=== PATIENT | male | born 1945 | race American Indian/Alaskan Native ===

== ENCOUNTER 2017-07-08 11:19 | Inpatient (IN) | payer MEDICARE ==
[2017-07-08 11:45] VITALS: BMI 32.6
[2017-07-08] MEDS ORDERED: Sodium Chloride 0.9% 1,000 ML IV ONE (12:26)
[2017-07-08 13:15] LABS: BASO % 0.1 % (0.0-2.0); LYMPH # 0.6 K/uL (1.0-4.3); LYMPH % 7.9 % (20.0-40.0); MEAN CORPUSCULAR HEMOGLOBIN 26.7 pg (27.0-31.0); MEAN CORPUSCULAR HGB CONC 32.8 g/dL (33.0-37.0); MEAN PLATELET VOLUME 9.3 fL (7.2-11.7); MONO # 0.6 K/uL (0.0-0.8); MONO % 7.6 % (0.0-10.0); NEUT # 6.6 K/uL (1.8-7.0); NEUT % 84.4 % (50.0-75.0); NRBC % 0.2 % (0.0-2.0); RBC 5.45 Mil/uL (4.40-5.90); RED CELL DISTRIBUTION WIDTH 17.5 % (11.5-14.5); WHITE BLOOD COUNT 7.8 K/uL (4.8-10.8)
[2017-07-08] MEDS ORDERED: Sodium Chloride 0.9% 1,000 ML ONE (13:15)
[2017-07-08 13:17] LABS: HEMOGLOBIN 14.5 g/dL (12.0-18.0); MEAN CELL VOLUME 81.3 fL (80.0-94.0); PLATELET COUNT 163 K/uL (130-400)
[2017-07-08 13:25] LABS: ALB/GLOB RATIO 1.1 (1.0-2.1); ALBUMIN 3.6 g/dL (3.5-5.0)
[2017-07-08] MEDS ORDERED: Iohexol 240 (50 ml) PO STA (13:45)
[2017-07-08 13:51] LABS: BANDS 48 % (0-2); LYMPHOCYTE 15 % (20-40); MONOCYTE 5 % (0-10); NEUTROPHIL 32 % (50-75); NUCLEATED RED BLOOD CELL 1 % (0-0); PLATELET ESTIMATE NORMAL (NORMAL); TOTAL CELLS COUNTED 100
[2017-07-08 13:52] LABS: BURR CELLS SLIGHT; OVALOCYTES SLIGHT; POIKILOCYTOSIS SLIGHT
[2017-07-08 14:54] LABS: SQUAMOUS EPITHIAL 1 /hpf (0-5); URINE BILIRUBIN NEGATIVE (NEGATIVE); URINE BLOOD NEGATIVE (NEGATIVE); URINE CLARITY Hazy (Clear); URINE COLOR Amber (YELLOW); URINE GLUCOSE (UA) NORMAL (Normal); URINE LEUKOCYTE ESTERASE NEG Leu/uL (Negative); URINE NITRATE NEGATIVE (NEGATIVE); URINE PROTEIN 1+ mg/dL (NEGATIVE)
[2017-07-08] MEDS ORDERED: Iohexol 240 (50 ml) ONE (15:00)
--- NOTE | 2017-07-08 17:08 | CT ---
PROCEDURE: CT Abdomen and Pelvis without IV contrast. HISTORY: abd pain, vomiting. Renal insufficiency COMPARISON: None available. TECHNIQUE: Contiguous axial images of the abdomen and pelvis. Oral contrast was administered. No IV contrast given. Coronal and Sagittal reformats generated and reviewed. Radiation dose: Total exam DLP = 1518.62 mGy-cm. This CT exam was performed using one or more of the following dose reduction techniques: Automated exposure control, adjustment of the mA and/or kV according to patient size, and/or use of iterative reconstruction technique. FINDINGS: There is limited evaluation of the solid organs without the administration of IV contrast. LOWER THORAX: Bibasilar atelectasis/ infiltrates. No visible pleural effusion or pneumothorax. Small hiatal hernia with evidence of gastroesophageal reflux. LIVER: Nodular hepatic contour. Small perihepatic ascites. GALLBLADDER AND BILE DUCTS: Distended gallbladder. No calcified gallstones evident. PANCREAS: Atrophic pancreas. SPLEEN: Unremarkable unenhanced appearance. Small perisplenic ascites. ADRENALS: Mildly nodular adrenal gland hypertrophy. KIDNEYS AND URETERS: Bilateral lobulated renal contours. Renal atrophy. Numerous bilateral low-density renal lesions several of which appear consistent with cysts. Indeterminate 13 x 7 mm hyperdense focus within the left mid to upper pole lateral kidney. Nonobstructing 6 mm left lower pole calculus. No hydronephrosis or obstructing renal calculus. BLADDER: The urinary bladder appears unremarkable. REPRODUCTIVE: Prostate gland measures approximately 3.4 x 4.2 cm and contains coarse calcifications. Partially imaged large left and small right hydroceles. APPENDIX: The appendix appears within normal limits of caliber. BOWEL: The stomach is nondistended. The bowel loops appear within normal limits of caliber without evidence of intestinal obstruction. Small bowel wall thickening suspicious for enteritis, correlate clinically. Diverticulosis without CT evidence of acute diverticulitis. PERITONEUM: Small (approximately 3.0 x 4.0 cm) pelvic free fluid including bilateral pericolic gutters and cul-de-sac. No definite free air. LYMPH NODES: Numerous numerous prominent nonspecific pericecal/mesenteric lymph nodes. VASCULATURE: No aortic aneurysm. BONES: Osseous demineralization. Degenerative changes. Sclerotic irregular appearance of the sacrum. Suggest further evaluation with nuclear medicine bone scan.Partially ankylosed SI joints. OTHER FINDINGS: Small focal fluid collection inferior and adjacent to the cecum, nonspecific ; rule out abscess or loculated ascites. 2.5 cm irregular soft tissue/mass evident within the right abdomen (series 3, image 100) medial to the right colon with evidence of calcification. IMPRESSION: Small (approximately 3.0 x 4.0 cm) focal fluid collection inferior and adjacent to the cecum, nonspecific ; rule out abscess or loculated ascites. 2.5 cm irregular soft tissue/mass evident within the right abdomen medial to the right colon with evidence of calcification. Malignant neoplasm must be excluded. Numerous prominent nonspecific mesenteric/pericecal lymph nodes. Nodular hepatic contour. Correlate clinically for possibility of cirrhosis. Small perihepatic ascites. Small perisplenic ascites. Small fluid within bilateral pericolic gutters and cul-de-sac. Bilateral lobulated renal contours. Renal atrophy. Numerous bilateral low-density renal lesions several of which appear consistent with cysts. Indeterminate 13 x 7 mm hyperdense focus within the left mid to upper pole lateral kidney. Nonobstructing 6 mm left lower pole calculus. Distended gallbladder. No calcified gallstones evident. Correlate clinically. Suggest further evaluation with right upper quadrant ultrasound if indicated. Small bowel wall thickening suspicious for enteritis. Correlate clinically. Diverticulosis without CT evidence of acute diverticulitis. Sclerotic irregular appearance of the sacrum. Suggest further evaluation with nuclear medicine bone scan if indicated. Additional findings as above.
--- NOTE | 2017-07-08 17:36 | C.PDOC ---
Time Seen by Provider: 07/08/17 12:11 Chief Complaint (Nursing): Abdominal Pain Past Medical History Vital Signs: Last Vital Signs Temp 99.0 F 07/08/17 15:21 Pulse 82 07/08/17 15:21 Resp 18 07/08/17 15:21 BP 132/65 07/08/17 15:21 Pulse Ox 98 07/08/17 15:21 - Medical History PMH: Arthritis, HTN Family History: States: Unknown Family Hx - Social History Hx Alcohol Use: No Hx Substance Use: No - Immunization History Hx Tetanus Toxoid Vaccination: No Hx Influenza Vaccination: Yes Hx Pneumococcal Vaccination: Yes ED Course And Treatment - Laboratory Results Result Diagrams: 07/08/17 13:10 07/08/17 13:10 O2 Sat by Pulse Oximetry: 98 Disposition - Disposition
--- NOTE | 2017-07-08 17:37 | C.PDOC ---
Time Seen by Provider: 07/08/17 12:11 Chief Complaint (Nursing): Abdominal Pain History Per: Patient, Family Onset/Duration Of Symptoms: Days (1) Current Symptoms Are (Timing): Still Present Severity: Moderate Location Of Pain/Discomfort: Diffuse Quality Of Discomfort: Unable To Describe, "Pain" Associated Symptoms: Nausea, Vomiting Exacerbating Factors: Food Alleviating Factors: None Additional History Per: Prior Records Past Medical History Reviewed: Historical Data, Nursing Documentation, Vital Signs Vital Signs: Last Vital Signs Temp 99.0 F 07/08/17 15:21 Pulse 82 07/08/17 15:21 Resp 18 07/08/17 15:21 BP 132/65 07/08/17 15:21 Pulse Ox 98 07/08/17 15:21 - Medical History PMH: Arthritis (Gout), HTN, Chronic Kidney Disease Surgical History: No Surg Hx Family History: States: Unknown Family Hx - Social History Hx Alcohol Use: No Hx Substance Use: No - Immunization History Hx Tetanus Toxoid Vaccination: No Hx Influenza Vaccination: Yes Hx Pneumococcal Vaccination: Yes Review Of Systems Except As Marked, All Systems Reviewed And Found Negative. Constitutional: Negative for: Fever Cardiovascular: Negative for: Chest Pain Respiratory: Negative for: Cough, Shortness of Breath Gastrointestinal: Positive for: Nausea, Vomiting, Abdominal Pain. Negative for : Diarrhea, Melena, Hematochezia, Hematemesis Genitourinary: Negative for: Dysuria Musculoskeletal: Negative for: Neck Pain Skin: Negative for: Rash Neurological: Negative for: Weakness, Numbness Physical Exam - Physical Exam Appears: Non-toxic, No Acute Distress Skin: Normal Color, Warm, Dry, No Rash Head: Atraumatic, Normacephalic Eye(s): bilateral: Normal Inspection, PERRL, EOMI Neck: Normal ROM, Supple Cardiovascular: Rhythm Regular Respiratory: Normal Breath Sounds, No Accessory Muscle Use Gastrointestinal/Abdominal: Soft, Tenderness (nonspecific) Extremity: Normal ROM Neurological/Psych: Oriented x3, Normal Motor, Normal Sensation ED Course And Treatment - Laboratory Results Result Diagrams: 07/08/17 13:10 07/08/17 13:10 Lab Interpretation: Abnormal Interpretation Of Abnormal: Bandemia. Renal insufficiency. ECG: Interpreted By Me, Viewed By Me ECG Rhythm: Sinus Rhythm, Nonspecific Changes ECG Interpretation: No Acute Changes Rate From EC O2 Sat by Pulse Oximetry: 98 Pulse Ox Interpretation: Normal - CT Scan/US CT abd/pelv Other Rad Studies (CT/US): Read By Radiologist, Radiology Report Reviewed CT/US Interpretation: IMPRESSION: Small (approximately 3.0 x 4.0 cm) focal fluid collection inferior and adjacent to the cecum, nonspecific ; rule out abscess or loculated ascites. 2.5 cm irregular soft tissue/mass evident within the right abdomen medial to the right colon with evidence of calcification. Malignant neoplasm must be excluded. Numerous prominent nonspecific mesenteric/ pericecal lymph nodes. Nodular hepatic contour. Correlate clinically for possibility of cirrhosis. Small perihepatic ascites. Small perisplenic ascites. Small fluid within bilateral pericolic gutters and cul-de-sac. Bilateral lobulated renal contours. Renal atrophy. Numerous bilateral low- density renal lesions several of which appear consistent with cysts. Indeterminate 13 x 7 mm hyperdense focus within the left mid to upper pole lateral kidney. Nonobstructing 6 mm left lower pole calculus. Distended gallbladder. No calcified gallstones evident. Correlate clinically. Suggest further evaluation with right upper quadrant ultrasound if indicated. Small bowel wall thickening suspicious for enteritis. Correlate clinically. Diverticulosis without CT evidence of acute diverticulitis. Sclerotic irregular appearance of the sacrum. Suggest further evaluation with nuclear medicine bone scan if indicated. Additional findings as above. - Physician Consult Information Physician Contacted: Amy Reyes (Surg.) Outcome Of Conversation: She does not believe abdominal pain is due to a surgical process. She recommends pt be admitted on medical service and she will consult if focal findings develop. Progress - Interventions Interventions:: Observation, Intravenous fluid - Medications Administered Intravenous: Antiemetic, Other (PPI) - Data Reviewed Data Reviewed: Lab, Diagnostic imaging, EKG, Old records - Patient Status Patient status: Partially improved - Continuity of Care Discussed patient case with:: Patient, Family-HIPPA compliant, ED Nurse, On- call PMD-pt unassigned Discussed pt. case with communication consultant/specialty: General Surgery Disposition Discussed With : Fabio Jones Comment: He accepted pt on his service. Doctor Will See Patient In The: Hospital Counseled Patient/Family Regarding: Studies Performed, Diagnosis - Disposition Disposition: HOSPITALIZED Disposition Time: 17:52 Condition: FAIR - Clinical Impression Clinical Impression: Abdominal pain, Bandemia
[2017-07-08] MEDS ORDERED: Piperacill/Tazo 2.25gm in Dex 2.25 GM/50 ML BAG IVPB STA (19:07)
--- NOTE | 2017-07-08 20:14 | CP.PCM.HP ---
History of Present Illness - History of Present Illness History of Present Illness: 1 DAY H/O NAUSEA AND VOMITING A/W GEN ABDOMINAL PAIN . WORK UP IN ER SHOWED BANDS OF [address] WITH FLUID COLLECTION NEAR CEACUM AND COLITIS AND ASCITIES HAS H/O UROLITHIASIS WITH RENAL INSUFFICIENCY H/O HTN Present on Admission - Present on Admission Any Indicators Present on Admission: No Review of Systems - Constitutional Constitutional: absent: As Per HPI, Anorexia, Chills, Daytime Sleepiness, Excessive Sweating, Fatigue, Fever, Frequent Falls, Headache, Increased Appetite , Lethargy, Malaise, Night Sweats, Snoring, Sleep Apnea, Weight Gain, Weight Loss, Weakness, Other - EENT Ears: absent: As Per HPI, Decreased Hearing, Ear Discharge, Ear Pain, Tinnitus, Abnormal Hearing, Disequilibrium, Dizziness, Other Nose/Mouth/Throat: absent: As Per HPI, Epistaxis, Nasal Congestion, Nasal Discharge, Nasal Obstruction, Nasal Trauma, Nose Pain, Post Nasal Drip, Sinus Pain, Sinus Pressure, Bleeding Gums, Change in Voice, Dental Pain, Dry Mouth, Dysphagia, Halitosis, Hoarsness, Lip Swelling, Mouth Lesions, Mouth Pain, Odynophagia, Sore Throat, Throat Swelling, Tongue Swelling, Facial Pain, Neck Pain, Neck Mass, Other - Cardiovascular Cardiovascular: absent: As Per HPI, Acrocyanosis, Chest Pain, Chest Pain at Rest , Chest Pain with Activity, Claudication, Diaphoresis, Dyspnea, Dyspnea on Exertion, Edema, Irregular Heart Rhythm, Pain Radiating to Arm/Neck/Jaw, Leg Edema, Leg Ulcers, Lightheadedness, Orthopnea, Palpitations, Paroxysmal Nocturnal Dyspnea, Pedal Edema, Radiating Pain, Rapid Heart Rate, Slow Heart Rate, Syncope, Other - Respiratory Respiratory: absent: As Per HPI, Cough, Dyspnea, Hemoptysis, Dyspnea on Exertion , Wheezing, Snoring, Stridor, Pain on Inspiration, Chest Congestion, Excessive Mucous Production, Change in Mucous Color, Pain with Coughing, Other - Gastrointestinal Gastrointestinal: Abdominal Pain, Bloating, Nausea, Vomiting. absent: Coffee Ground Emesis, Constipation, Diarrhea, Hematemesis, Hematochezia, Melena - Genitourinary Genitourinary: absent: As Per HPI, Change in Urinary Stream, Difficulty Urinating, Dysuria, Flank Pain, Hematuria, Pyuria, Nocturia, Urinary Incontinence, Urinary Frequency, Urinary Hesitance, Urinary Urgency, Voiding Freq/Small Amts, Freq UTI, Hx Renal/Bladder Calculi, Hx /Renal Surgery, Bladder Distension, Other - Integumentary Integumentary: absent: As Per HPI, Acne, Alopecia, Bleeding Lesions, Change in Hair, Change in Nails, Change in Pigmentation, Changing Lesions, Dry Skin, Erythema, Furuncle, Hirsutism, Lesions, New Lesions, Non-Healing Lesions, Photosensitivity, Pruritus, Rash, Skin Pain, Skin Ulcer, Sores, Striae, Swelling , Unusual Bruising, Wounds, Jaundice, Other - Neurological Neurological: absent: As Per HPI, Abnormal Gait, Abnormal Hearing, Abnormal Movements, Abnormal Speech, Behavioral Changes, Burning Sensations, Confusion, Convulsions, Disequilibrium, Dizziness, Numbness, Focal Weakness, Frequent Falls , Headaches, Lack of Coordination, Loss of Vision, Memory Loss, Paresthesias, Radicular Pain, Restless Legs, Sensory Deficit, Syncope, Tingling, Tremor, Vertigo, Weakness, Other Visual Disturbances, Other - Psychiatric Psychiatric: absent: As Per HPI, Abnormal Sleep Pattern, Anhedonia, Anxiety, Auditory Hallucinations, Behavioral Changes, Change in Appetite, Change in Libido, Confusion, Depression, Difficulty Concentrating, Hallucinations, Homicidal Ideation, Hopelessness, Irritability, Memory Loss, Mood Swings, Panic Attacks, Paranoia, Suicidal Ideation, Visual Hallucinations, Tactile Hallucinations, Other Past Patient History - Infectious Disease Hx of Infectious Diseases: None - Past Social History Smoking Status: Former Smoker - CARDIAC Hx Hypertension: Yes - RENAL Hx Chronic Kidney Disease: Yes - ENDOCRINE/METABOLIC Hx Endocrine Disorders: Yes Hx Diabetes Mellitus Type 2: Yes - MUSCULOSKELETAL/RHEUMATOLOGICAL Hx Arthritis: Yes (Gout) - PSYCHIATRIC Hx Substance Use: No - SURGICAL HISTORY Hx Surgeries: Yes Other/Comment: gall stone and kidney stone removal. - ANESTHESIA Hx Anesthesia: Yes Hx Anesthesia Reactions: No Hx Malignant Hyperthermia: No Meds Allergies/Adverse Reactions: Allergies Allergy/AdvReac Type Severity Reaction Status Date / Time No Known Allergies Allergy Verified 07/08/17 11:42 Physical Exam - Constitutional Appears: Well - Head Exam Head Exam: ATRAUMATIC - Eye Exam Eye Exam: EOMI, Normal appearance, PERRL Pupil Exam: NORMAL ACCOMODATION, PERRL - ENT Exam ENT Exam: Mucous Membranes Moist, Normal Exam - Neck Exam Neck exam: Positive for: Normal Inspection - Respiratory Exam Respiratory Exam: Clear to Auscultation Bilateral, NORMAL BREATHING PATTERN - Cardiovascular Exam Cardiovascular Exam: REGULAR RHYTHM - GI/Abdominal Exam GI & Abdominal Exam: Normal Bowel Sounds, Soft, Tenderness - Rectal Exam Rectal Exam: Deferred - Back Exam Back exam: absent: CVA tenderness (L), CVA tenderness (R) - Neurological Exam Neurological exam: Alert, CN II-XII Intact, Normal Gait, Oriented x3, Reflexes Normal - Psychiatric Exam Psychiatric exam: Normal Affect, Normal Mood Results - Vital Signs Recent Vital Signs: Last Vital Signs Temp 99.0 F 07/08/17 15:21 Pulse 82 07/08/17 15:21 Resp 18 07/08/17 15:21 BP 132/65 07/08/17 15:21 Pulse Ox 98 07/08/17 17:53 - Labs Result Diagrams: 07/08/17 13:10 07/08/17 13:10 Labs: Laboratory Results - last 24 hr 07/08/17 07/08/17 07/08/17 13:10 13:10 14:34 WBC 7.8 RBC 5.45 Hgb 14.5 D Hct 44.3 MCV 81.3 D MCH 26.7 L MCHC 32.8 L RDW 17.5 H Plt Count 163 D MPV 9.3 Neut % (Auto) 84.4 H Lymph % (Auto) 7.9 L [place] % (Auto) 7.6 Eos % (Auto) 0.0 Baso % (Auto) 0.1 Neut # (Auto) 6.6 Lymph # (Auto) 0.6 L [place] # (Auto) 0.6 Eos # (Auto) 0.0 Baso # (Auto) 0.0 Neutrophils % (Manual) 32 L Band Neutrophils % 48 H* Lymphocytes % (Manual) 15 L Monocytes % (Manual) 5 Nucleated RBC % 1 H Platelet Estimate Normal Poikilocytosis (manual Slight Ovalocytes Slight [place] Cells Slight Sodium 137 Potassium 3.2 L Chloride 102 Carbon Dioxide 17 L Anion Gap 21 H BUN 29 H Creatinine 2.2 H Est GFR ( Amer) 36 Est GFR (Non-Af Amer) 30 Random Glucose 113 H Calcium 9.0 Total Bilirubin 0.9 AST 27 ALT 26 Alkaline Phosphatase 90 Total Protein 6.9 Albumin 3.6 Globulin 3.3 Albumin/Globulin Ratio 1.1 Lipase 76 Urine Color Rekha Urine Clarity Hazy Urine pH 5.0 Ur Specific [place] 1.024 Urine Protein 1+ H Urine Glucose (UA) Normal Urine Ketones Trace Urine Blood Negative Urine Nitrate Negative Urine Bilirubin Negative Urine Urobilinogen 4.0 Ur Leukocyte Esterase Neg Urine WBC (Auto) 3 Urine RBC (Auto) 3 Ur Squamous Epith Cells 1 Assessment & Plan (1) Ascites Status: Acute (2) Abdominal pain Status: Acute Comment: ? APPENDICEAL ABSCESS/DIVERTICULITIS (3) Bandemia Status: Acute Comment: SEPTIC W/U. ID EVAL (4) Renal insufficiency Status: Chronic
--- NOTE | 2017-07-08 20:15 | CP.PCM.CON ---
History of Present Illness - History of Present Illness History of Present Illness: INFECTIOUS DISEASE CONSULT; HPI; 72-year-old male history of hypertension, diabetes mellitus type 2, chronic kidney disease, history of urolithiasis and GOUT who is admitted via the emergency room on 07/08/17 with 1 day history of abdominal pain generalized associated with nausea and vomiting. CT of the abdomen and pelvis with by mouth contrast only showed fluid collection inferior and adjacent to the cecum ? Abscess on loculated ascites with perihepatic and perisplenic ascites and also bilateral fluid collection pericolic gutters.also with 2.5 cm irregular soft tissue mass right abdomen medial to right colon? malignant neoplasm. It also showed some enteritis with small bowel thickening. A dilated gallbladder was also noted. PATIENT C/O FEVER AND CHILLS PRIOR TO ADMISSION AND CBC SHOWED 48% BANDS WITH NORMAL WBC COUNT OF 7.8. PATIENT ALSO HAD CREATININE OF 2.2/bun 29.Patient also admits to loss of weight OVER SEVERAL MONTHS. He states he was more than 300 pounds. PATIENT DENIES ANY PREVIOUS SURGERY. PMH; HTN, DM-2, GOUT, CRI, HX OF UROLITHIASIS. SH; FORMER SMOKER, DENIES DRINKING OR SUBSTANCE ABUSE . USED TO DRINK HEAVILY BEFORE FH ; NONCONTRIBUTORY. ALLERGY; NKA Review of Systems - Constitutional Constitutional: Chills, Fever - EENT Nose/Mouth/Throat: absent: Mouth Lesions - Cardiovascular Cardiovascular: absent: Chest Pain, Dyspnea - Respiratory Respiratory: absent: Cough - Gastrointestinal Gastrointestinal: Abdominal Pain (GENERALIZED), Nausea, Vomiting. absent: Diarrhea - Genitourinary Genitourinary: Hx Renal/Bladder Calculi. absent: Dysuria - Musculoskeletal Musculoskeletal: absent: Arthralgias - Neurological Neurological: absent: Dizziness, Headaches - Hematologic/Lymphatic Hematologic: As Per HPI. absent: Easy Bleeding, Easy Bruising, Lymphadenopathy Past Patient History - Infectious Disease Hx of Infectious Diseases: None - Past Social History Smoking Status: Former Smoker - CARDIAC Hx Hypertension: Yes - RENAL Hx Chronic Kidney Disease: Yes - ENDOCRINE/METABOLIC Hx Endocrine Disorders: Yes Hx Diabetes Mellitus Type 2: Yes - MUSCULOSKELETAL/RHEUMATOLOGICAL Hx Arthritis: Yes (Gout) - PSYCHIATRIC Hx Substance Use: No - SURGICAL HISTORY Hx Surgeries: Yes Other/Comment: gall stone and kidney stone removal. - ANESTHESIA Hx Anesthesia: Yes Hx Anesthesia Reactions: No Hx Malignant Hyperthermia: No Meds Allergies/Adverse Reactions: Allergies Allergy/AdvReac Type Severity Reaction Status Date / Time No Known Allergies Allergy Verified 07/08/17 11:42 Physical Exam - Constitutional Appears: No Acute Distress - Head Exam Head Exam: NORMAL INSPECTION - Eye Exam Eye Exam: EOMI, PERRL. absent: Scleral icterus - ENT Exam ENT Exam: Normal Oropharynx - Neck Exam Neck exam: Positive for: Normal Inspection - Respiratory Exam Respiratory Exam: Clear to Auscultation Bilateral - Cardiovascular Exam Cardiovascular Exam: REGULAR RHYTHM, +S1, +S2 - GI/Abdominal Exam GI & Abdominal Exam: Hypoactive Bowel Sounds, Soft, Tenderness (LEFT LOWER QUADRANT/MID ABDOMEN). absent: Mass - Extremities Exam Extremities exam: Positive for: pedal pulses present. Negative for: calf tenderness, pedal edema - Back Exam Back exam: absent: CVA tenderness (L), CVA tenderness (R) - Neurological Exam Neurological exam: Alert, CN II-XII Intact, Oriented x3, Reflexes Normal - Psychiatric Exam Psychiatric exam: Normal Mood - Skin Skin Exam: Normal Color, Warm Results - Vital Signs Recent Vital Signs: Last Vital Signs Temp 99.0 F 07/08/17 15:21 Pulse 82 07/08/17 15:21 Resp 18 07/08/17 15:21 BP 132/65 07/08/17 15:21 Pulse Ox 98 07/08/17 17:53 - Labs Result Diagrams: 07/09/17 06:37 07/09/17 06:37 Labs: Laboratory Results - last 24 hr 07/08/17 07/08/17 07/08/17 13:10 13:10 14:34 WBC 7.8 RBC 5.45 Hgb 14.5 D Hct 44.3 MCV 81.3 D MCH 26.7 L MCHC 32.8 L RDW 17.5 H Plt Count 163 D MPV 9.3 Neut % (Auto) 84.4 H Lymph % (Auto) 7.9 L [place] % (Auto) 7.6 Eos % (Auto) 0.0 Baso % (Auto) 0.1 Neut # (Auto) 6.6 Lymph # (Auto) 0.6 L [place] # (Auto) 0.6 Eos # (Auto) 0.0 Baso # (Auto) 0.0 Neutrophils % (Manual) 32 L Band Neutrophils % 48 H* Lymphocytes % (Manual) 15 L Monocytes % (Manual) 5 Nucleated RBC % 1 H Platelet Estimate Normal Poikilocytosis (manual Slight Ovalocytes Slight [place] Cells Slight Sodium 137 Potassium 3.2 L Chloride 102 Carbon Dioxide 17 L Anion Gap 21 H BUN 29 H Creatinine 2.2 H Est GFR ( Amer) 36 Est GFR (Non-Af Amer) 30 Random Glucose 113 H Calcium 9.0 Total Bilirubin 0.9 AST 27 ALT 26 Alkaline Phosphatase 90 Total Protein 6.9 Albumin 3.6 Globulin 3.3 Albumin/Globulin Ratio 1.1 Lipase 76 Urine Color Rekha Urine Clarity Hazy Urine pH 5.0 Ur Specific [place] 1.024 Urine Protein 1+ H Urine Glucose (UA) Normal Urine Ketones Trace Urine Blood Negative Urine Nitrate Negative Urine Bilirubin Negative Urine Urobilinogen 4.0 Ur Leukocyte Esterase Neg Urine WBC (Auto) 3 Urine RBC (Auto) 3 Ur Squamous Epith Cells 1 - Imaging and Cardiology CT scan - abdomen Status: Report reviewed by me (SEE FULL REPORT.) Assessment & Plan (1) Abdominal pain Assessment and Plan: ETIOLOGY OF PAIN NOT CLEAR. MASS RT.COLON R/O MALIGNANCY VS COLITIS SEEN BY SURGERY - PATTEN CULTURE. START iv zOSYN 2.25 iv PIGGYBACK EVERY 6 HOURLY EMPIRICALLY WHILE AWAITING CULTURES. CONSIDER GI EVALUATION DISCUSSED WITH PMD . Status: Acute (2) Ascites Status: Acute (3) Bandemia Status: Acute (4) Renal insufficiency Status: Chronic (5) Diabetes mellitus Status: Acute (6) Hypertension Status: Acute
[2017-07-09] MEDS: Piperacill/Tazo 2.25gm in Dex 2.25 GM/50 ML BAG IVPB SCH ×4 (04:00→22:02)
[2017-07-09 06:41] LABS: BASO % 0.1 % (0.0-2.0); EOS # 0.1 K/uL (0.0-0.7); EOS % 0.6 % (0.0-4.0); HEMOGLOBIN 15.5 g/dL (12.0-18.0); LYMPH # 0.7 K/uL (1.0-4.3); LYMPH % 8.4 % (20.0-40.0); MEAN CELL VOLUME 80.5 fL (80.0-94.0); MEAN CORPUSCULAR HEMOGLOBIN 26.7 pg (27.0-31.0); MEAN CORPUSCULAR HGB CONC 33.2 g/dL (33.0-37.0); MEAN PLATELET VOLUME 9.9 fL (7.2-11.7); MONO # 0.6 K/uL (0.0-0.8); MONO % 6.6 % (0.0-10.0); NEUT # 7.2 K/uL (1.8-7.0); NEUT % 84.3 % (50.0-75.0); NRBC % 0.1 % (0.0-2.0); PLATELET COUNT 152 K/uL (130-400); RBC 5.81 Mil/uL (4.40-5.90); WHITE BLOOD COUNT 8.5 K/uL (4.8-10.8)
[2017-07-09 06:57] LABS: ALB/GLOB RATIO 1.1 (1.0-2.1); ALBUMIN 3.6 g/dL (3.5-5.0); CALCIUM 8.3 mg/dl (8.6-10.4)
[2017-07-09 09:19] LABS: BANDS 26 % (0-2); LYMPHOCYTE 9 % (20-40); MONOCYTE 5 % (0-10); NEUTROPHIL 60 % (50-75); PLATELET ESTIMATE NORMAL (NORMAL); TOTAL CELLS COUNTED 100
[2017-07-09 09:20] LABS: ANISOCYTOSIS MODERATE
[2017-07-09 09:21] LABS: LARGE PLATELETS PRESENT; TOXIC GRANULATION PRESENT
[2017-07-09 09:22] LABS: POLYCHROMIC SLIGHT
--- NOTE | 2017-07-09 13:52 | CP.PCM.PN ---
Subjective - Date & Time of Evaluation Date of Evaluation: 07/09/17 Time of Evaluation: 13:50 - Subjective Subjective: CHIEF COMPLAINTS TODAY : ABD PAIN A/W N/VOMITING ON IV TOREDOL ROS. HEENT : N. Resp : No cough, wheezing ,pleuritic CP ,or hemoptysis Cardio : No anginal CP, PND, orthopnea, palpitation GI : No GI bleeding . CHEF'S ASSISTANT : No headache, vertigo, focal deficit. Musculoskel : No joint swelling , Derm : No rash Psych : Normal affect. Ext : No swelling ,calf pain PE. Pt. is alert awake in no distress. V.S As noted in the chart Head ,ear nose,throat and eyes : Normal. Neck : Supple with normal carotids. Lungs: Clear air entry. Heart : S1 & S2 normal with S4. No murmur. Abd : Soft tender with normal bowel sounds. Neuro : Moves all ext. with no localized deficit. Ext : No edema with intact pulses.Non tender calves Derm : No rashes or decubitus ulcer. LABS/RADIOLOGY: CR 2.7/BANDS DOWN TO 27 ASSESSMENT/PLAN : IV AB HYDRATION F/U GI RECOMMENDATIONS Objective - Vital Signs/Intake and Output Vital Signs (last 24 hours): Temp Pulse Resp BP Pulse Ox 97.8 F 102 H 22 151/97 H 97 07/09/17 11:13 07/09/17 11:13 07/09/17 11:13 07/09/17 11:13 07/09/17 10:17 - Medications Medications: Current Medications Allopurinol (Zyloprim) 300 mg PO DAILY [facility] Last Admin: 07/09/17 13:16 Dose: 300 mg Amlodipine Besylate (Norvasc) 10 mg PO DAILY [facility] Last Admin: 07/09/17 13:15 Dose: 10 mg Docusate Sodium (Colace) 100 mg PO DAILY [facility] Last Admin: 07/09/17 13:15 Dose: 100 mg Ferrous Sulfate (Feosol) 325 mg PO DAILY [facility] Last Admin: 07/09/17 13:15 Dose: 325 mg Hydrochlorothiazide (Hydrodiuril) 25 mg PO DAILY [facility] Last Admin: 07/09/17 13:15 Dose: 25 mg Piperacillin Sod/Tazobactam Sod (Zosyn 2.25 Gm Iv Premix) 2.25 gm in 50 mls @ 100 mls/hr IVPB Q6H [facility] Last Admin: 07/09/17 10:27 Dose: 100 mls/hr - Labs Labs: 07/09/17 06:37 07/09/17 06:37 Assessment and Plan (1) Ascites Status: Acute (2) Abdominal pain Status: Acute (3) Bandemia Status: Acute (4) Renal insufficiency Status: Chronic
--- NOTE | 2017-07-09 16:51 | CP.PCM.CON ---
<Jessica Sabillon - Last Filed: 07/09/17 16:56> History of Present Illness - History of Present Illness History of Present Illness: GI Fellow PGY4 Consult Note This is 72-year-old male history of hypertension, diabetes mellitus type 2, chronic kidney disease, history of urolithiasis and gout who is admitted for abdominal pain with nausea and vomiting. Pt reports his symptoms started on and progressively got worse making him come to the ER. Pt denies any fevers, chills, GI bleeding. Pt denies hx of Cirrhosis but does have a hx of heavy alcohol use, last drink was 20yrs ago Pt had a CT of the abdomen and pelvis which showed fluid collection inferior and adjacent to the cecum, Abscess on loculated ascites with perihepatic and perisplenic ascites and also bilateral fluid collection pericolic gutters. It also showed some enteritis with small bowel thickening and cirrhotic liver changes. Pt reports now vomiting has stopped since being in the hospital, no diarrhea, no sick contacts no recent abx use. Colonoscopy 2015 with 4 polyps on right colon, no EGD. ROS: A 12pt ROS was negative except as above PmHx: As stated in HPI PsHx: As stated in HPI FHx: Denies SHx: deneis tobacco, hx of etoh abuse, no drugs Past Patient History - Infectious Disease Hx of Infectious Diseases: None - Past Social History Smoking Status: Former Smoker - CARDIAC Hx Hypertension: Yes - RENAL Hx Chronic Kidney Disease: Yes - ENDOCRINE/METABOLIC Hx Endocrine Disorders: Yes Hx Diabetes Mellitus Type 2: Yes - MUSCULOSKELETAL/RHEUMATOLOGICAL Hx Arthritis: Yes (Gout) - PSYCHIATRIC Hx Substance Use: No - SURGICAL HISTORY Hx Surgeries: Yes Other/Comment: gall stone and kidney stone removal. - ANESTHESIA Hx Anesthesia: Yes Hx Anesthesia Reactions: No Hx Malignant Hyperthermia: No Meds Allergies/Adverse Reactions: Allergies Allergy/AdvReac Type Severity Reaction Status Date / Time No Known Allergies Allergy Verified 07/08/17 11:42 - Medications Medications: Current Medications Allopurinol (Zyloprim) 300 mg PO DAILY [facility] Last Admin: 07/09/17 13:16 Dose: 300 mg Amlodipine Besylate (Norvasc) 10 mg PO DAILY [facility] Last Admin: 07/09/17 13:15 Dose: 10 mg Docusate Sodium (Colace) 100 mg PO DAILY [facility] Last Admin: 07/09/17 13:15 Dose: 100 mg Ferrous Sulfate (Feosol) 325 mg PO DAILY [facility] Last Admin: 07/09/17 13:15 Dose: 325 mg Heparin Sodium (Porcine) (Heparin) 5,000 units SC Q12 [facility] Hydrochlorothiazide (Hydrodiuril) 25 mg PO DAILY [facility] Last Admin: 07/09/17 13:15 Dose: 25 mg Piperacillin Sod/Tazobactam Sod (Zosyn 2.25 Gm Iv Premix) 2.25 gm in 50 mls @ 100 mls/hr IVPB Q6H [facility] Last Admin: 07/09/17 10:27 Dose: 100 mls/hr Physical Exam - Constitutional Appears: Non-toxic, No Acute Distress - Head Exam Head Exam: ATRAUMATIC, NORMAL INSPECTION, NORMOCEPHALIC - Eye Exam Eye Exam: EOMI, Normal appearance, PERRL Pupil Exam: PERRL - ENT Exam ENT Exam: Mucous Membranes Dry - Respiratory Exam Respiratory Exam: Clear to Auscultation Bilateral, NORMAL BREATHING PATTERN - Cardiovascular Exam Cardiovascular Exam: RRR - GI/Abdominal Exam GI & Abdominal Exam: Normal Bowel Sounds, Organomegaly, Soft. absent: Distended , Guarding, Tenderness - Neurological Exam Neurological exam: Alert, Oriented x3 - Psychiatric Exam Psychiatric exam: Normal Affect, Normal Mood - Skin Skin Exam: Dry, Intact, Normal Color, Warm Results - Vital Signs Recent Vital Signs: Last Vital Signs Temp 97.8 F 07/09/17 11:13 Pulse 102 H 07/09/17 11:13 Resp 22 07/09/17 11:13 BP 151/97 H 07/09/17 11:13 Pulse Ox 97 07/09/17 10:17 - Labs Result Diagrams: 07/09/17 06:37 07/09/17 06:37 Labs: Laboratory Results - last 24 hr 07/09/17 07/09/17 07/09/17 06:37 06:37 10:37 WBC 8.5 RBC 5.81 Hgb 15.5 Hct 46.7 MCV 80.5 MCH 26.7 L MCHC 33.2 RDW 18.0 H Plt Count 152 MPV 9.9 Neut % (Auto) 84.3 H Lymph % (Auto) 8.4 L Cook % (Auto) 6.6 Eos % (Auto) 0.6 Baso % (Auto) 0.1 Neut # (Auto) 7.2 H Lymph # (Auto) 0.7 L Cook # (Auto) 0.6 Eos # (Auto) 0.1 Baso # (Auto) 0.0 Neutrophils % (Manual) 60 Band Neutrophils % 26 H* Lymphocytes % (Manual) 9 L Monocytes % (Manual) 5 Toxic Granulation Present Platelet Estimate Normal Large Platelets Present Polychromasia Slight Anisocytosis (manual) Moderate Sodium 138 Potassium 4.0 Chloride 103 Carbon Dioxide 20 L Anion Gap 19 BUN 39 H Creatinine 2.7 H Est GFR ( Amer) 28 Est GFR (Non-Af Amer) 23 POC Glucose (mg/dL) 110 Random Glucose 78 Calcium 8.3 L Total Bilirubin 0.9 AST 33 ALT 20 L D Alkaline Phosphatase 99 Total Protein 7.0 Albumin 3.6 Globulin 3.4 Albumin/Globulin Ratio 1.1 07/09/17 07/09/17 11:39 16:34 WBC RBC Hgb Hct MCV MCH MCHC RDW Plt Count MPV Neut % (Auto) Lymph % (Auto) Cook % (Auto) Eos % (Auto) Baso % (Auto) Neut # (Auto) Lymph # (Auto) Cook # (Auto) Eos # (Auto) Baso # (Auto) Neutrophils % (Manual) Band Neutrophils % Lymphocytes % (Manual) Monocytes % (Manual) Toxic Granulation Platelet Estimate Large Platelets Polychromasia Anisocytosis (manual) Sodium Potassium Chloride Carbon Dioxide Anion Gap BUN Creatinine Est GFR ( Amer) Est GFR (Non-Af Amer) POC Glucose (mg/dL) 94 106 Random Glucose Calcium Total Bilirubin AST ALT Alkaline Phosphatase Total Protein Albumin Globulin Albumin/Globulin Ratio Assessment & Plan - Assessment and Plan (Free Text) Assessment: This is a 72yM presenting with abdominal pain, nausea and vomiting. 1.Abdominal pain, nausea and vomiting 2. Bandemia 3. Soft tissue mass by Right colon 4. Possible cirrhosis due to etoh abuse Plan: -Continue supportive care with pain control and anti-emetics -No fevers, no WBC but bandemia, ID following and continue IV per recs -Recommend IR guided biopsy of soft tissue mass -No plan for colonoscopy at this time -Possible cirrhosis on CT imaging, likely from alcohol, LFTs wnl -Will continue to follow closely <Shawn Ramirez MD - Last Filed: 07/09/17 17:39> Meds - Medications Medications: Current Medications Allopurinol (Zyloprim) 300 mg PO DAILY [facility] Last Admin: 07/09/17 13:16 Dose: 300 mg Amlodipine Besylate (Norvasc) 10 mg PO DAILY [facility] Last Admin: 07/09/17 13:15 Dose: 10 mg Docusate Sodium (Colace) 100 mg PO DAILY [facility] Last Admin: 07/09/17 13:15 Dose: 100 mg Ferrous Sulfate (Feosol) 325 mg PO DAILY [facility] Last Admin: 07/09/17 13:15 Dose: 325 mg Heparin Sodium (Porcine) (Heparin) 5,000 units SC Q12 [facility] Hydrochlorothiazide (Hydrodiuril) 25 mg PO DAILY [facility] Last Admin: 07/09/17 13:15 Dose: 25 mg Piperacillin Sod/Tazobactam Sod (Zosyn 2.25 Gm Iv Premix) 2.25 gm in 50 mls @ 100 mls/hr IVPB Q6H [facility] Last Admin: 07/09/17 10:27 Dose: 100 mls/hr Results - Vital Signs Recent Vital Signs: Last Vital Signs Temp 97.8 F 07/09/17 11:13 Pulse 102 H 07/09/17 11:13 Resp 22 07/09/17 11:13 BP 151/97 H 07/09/17 11:13 Pulse Ox 97 07/09/17 10:17 - Labs Result Diagrams: 07/09/17 06:37 07/09/17 06:37 Labs: Laboratory Results - last 24 hr 07/09/17 07/09/17 07/09/17 06:37 06:37 10:37 WBC 8.5 RBC 5.81 Hgb 15.5 Hct 46.7 MCV 80.5 MCH 26.7 L MCHC 33.2 RDW 18.0 H Plt Count 152 MPV 9.9 Neut % (Auto) 84.3 H Lymph % (Auto) 8.4 L Cook % (Auto) 6.6 Eos % (Auto) 0.6 Baso % (Auto) 0.1 Neut # (Auto) 7.2 H Lymph # (Auto) 0.7 L Cook # (Auto) 0.6 Eos # (Auto) 0.1 Baso # (Auto) 0.0 Neutrophils % (Manual) 60 Band Neutrophils % 26 H* Lymphocytes % (Manual) 9 L Monocytes % (Manual) 5 Toxic Granulation Present Platelet Estimate Normal Large Platelets Present Polychromasia Slight Anisocytosis (manual) Moderate Sodium 138 Potassium 4.0 Chloride 103 Carbon Dioxide 20 L Anion Gap 19 BUN 39 H Creatinine 2.7 H Est GFR ( Amer) 28 Est GFR (Non-Af Amer) 23 POC Glucose (mg/dL) 110 Random Glucose 78 Calcium 8.3 L Total Bilirubin 0.9 AST 33 ALT 20 L D Alkaline Phosphatase 99 Total Protein 7.0 Albumin 3.6 Globulin 3.4 Albumin/Globulin Ratio 1.1 07/09/17 07/09/17 11:39 16:34 WBC RBC Hgb Hct MCV MCH MCHC RDW Plt Count MPV Neut % (Auto) Lymph % (Auto) Cook % (Auto) Eos % (Auto) Baso % (Auto) Neut # (Auto) Lymph # (Auto) Cook # (Auto) Eos # (Auto) Baso # (Auto) Neutrophils % (Manual) Band Neutrophils % Lymphocytes % (Manual) Monocytes % (Manual) Toxic Granulation Platelet Estimate Large Platelets Polychromasia Anisocytosis (manual) Sodium Potassium Chloride Carbon Dioxide Anion Gap BUN Creatinine Est GFR ( Amer) Est GFR (Non-Af Amer) POC Glucose (mg/dL) 94 106 Random Glucose Calcium Total Bilirubin AST ALT Alkaline Phosphatase Total Protein Albumin Globulin Albumin/Globulin Ratio Attending/Attestation - Attestation I have personally seen and examined this patient.: Yes I have fully participated in the care of the patient.: Yes I have reviewed all pertinent clinical information: Yes Notes (Text): 07/09/17 17:35 Patient seen earlier today on rounds. This is a 72 year old M presenting with abdominal pain, nausea and vomiting and bandemia. CTAP concerning for soft tissue mass in medial to right colon and fluid collection. No s/s of SIRS. On physical exam he has right lower quadrant pain and tenderness on deep palpation. Last colonoscopy 2 years ago which was normal as per patient. Supportive care and IR consult for biopsy and culture. ID consult noted- continue antibiotics. Diet as tolerated. Will follow
--- NOTE | 2017-07-09 17:56 | CP.PCM.PN ---
Subjective - Date & Time of Evaluation Date of Evaluation: 07/09/17 Time of Evaluation: 17:56 - Subjective Subjective: CHIEF COMPLAINTS TODAY : C/O ABD PAIN A/W N/VOMITING POOR APPETITE ROS. HEENT : N. Resp : No cough, wheezing ,pleuritic CP ,or hemoptysis Cardio : No anginal CP, PND, orthopnea, palpitation GI : No GI bleeding .+VE N/V CREDIT VERIFICATION CLERK : No headache, vertigo, focal deficit. Musculoskel : No joint swelling , Derm : No rash Psych : Normal affect. Ext : No swelling ,calf pain PE. Pt. is alert awake in no distress. V.S As noted in the chart Head ,ear nose,throat and eyes : Normal. Neck : Supple with normal carotids. Lungs: Clear air entry. Heart : S1 & S2 normal with S4. No murmur. Abd : Soft tender with normal bowel sounds. Neuro : Moves all ext. with no localized deficit. Ext : No edema with intact pulses.Non tender calves Derm : No rashes or decubitus ulcer. LABS/RADIOLOGY: CR 2.7/ BANDS DOWN TO 27 ASSESSMENT; ABDOMINAL PAIN /ETIOLOGY NOT CLEAR RT.COLON MASS R/O OCCULT GI MALIGNANCY. COLITIS/ENTERITIS. ASCITES HTN RENAL INSUFFICIENCY. DM. GOUT /PLAN : CONTINUE IV AB IV ZOSYN HYDRATION PER GI RECOMMENDATIONS Objective - Vital Signs/Intake and Output Vital Signs (last 24 hours): Temp Pulse Resp BP Pulse Ox 97.8 F 102 H 22 151/97 H 97 07/09/17 11:13 07/09/17 11:13 07/09/17 11:13 07/09/17 11:13 07/09/17 10:17 - Medications Medications: Current Medications Allopurinol (Zyloprim) 300 mg PO DAILY [facility] Last Admin: 07/09/17 13:16 Dose: 300 mg Amlodipine Besylate (Norvasc) 10 mg PO DAILY [facility] Last Admin: 07/09/17 13:15 Dose: 10 mg Docusate Sodium (Colace) 100 mg PO DAILY [facility] Last Admin: 07/09/17 13:15 Dose: 100 mg Ferrous Sulfate (Feosol) 325 mg PO DAILY [facility] Last Admin: 07/09/17 13:15 Dose: 325 mg Heparin Sodium (Porcine) (Heparin) 5,000 units SC Q12 [facility] Hydrochlorothiazide (Hydrodiuril) 25 mg PO DAILY [facility] Last Admin: 07/09/17 13:15 Dose: 25 mg Piperacillin Sod/Tazobactam Sod (Zosyn 2.25 Gm Iv Premix) 2.25 gm in 50 mls @ 100 mls/hr IVPB Q6H [facility] Last Admin: 07/09/17 10:27 Dose: 100 mls/hr - Labs Labs: 07/09/17 06:37 07/09/17 06:37 Assessment and Plan (1) Abdominal pain Status: Acute (2) Ascites Status: Acute (3) Bandemia Status: Acute (4) Renal insufficiency Status: Chronic (5) Diabetes mellitus Status: Acute (6) Hypertension Status: Acute
[2017-07-09] MEDS: (Novolin R) Insulin Human Regular 100 units/ml vial SC SCH (22:03)
[2017-07-10 02:12] VITALS: RESP 20
[2017-07-10] MEDS: Piperacill/Tazo 2.25gm in Dex 2.25 GM/50 ML BAG IVPB SCH ×4 (02:51→21:06)
[2017-07-10] MEDS: (Novolin R) Insulin Human Regular 100 units/ml vial SC SCH ×4 (08:07→22:59)
[2017-07-10 08:29] LABS: BASO % 0.3 % (0.0-2.0); EOS % 0.3 % (0.0-4.0); HEMOGLOBIN 14.2 g/dL (12.0-18.0); LYMPH # 0.7 K/uL (1.0-4.3); LYMPH % 10.4 % (20.0-40.0); MEAN CELL VOLUME 79.5 fL (80.0-94.0); MEAN CORPUSCULAR HEMOGLOBIN 26.5 pg (27.0-31.0); MEAN CORPUSCULAR HGB CONC 33.3 g/dL (33.0-37.0); MEAN PLATELET VOLUME 10.1 fL (7.2-11.7); MONO # 0.5 K/uL (0.0-0.8); MONO % 7.2 % (0.0-10.0); NEUT # 5.7 K/uL (1.8-7.0); NEUT % 81.8 % (50.0-75.0); NRBC % 0.1 % (0.0-2.0); RBC 5.36 Mil/uL (4.40-5.90); RED CELL DISTRIBUTION WIDTH 18.5 % (11.5-14.5)
--- NOTE | 2017-07-10 09:02 | CP.PCM.PN ---
<Jessica Sabillon - Last Filed: 07/10/17 13:28> Subjective - Date & Time of Evaluation Date of Evaluation: 07/10/17 Time of Evaluation: 11:00 - Subjective Subjective: GI Fellow PGY4 Progress Note Pt seen and evaluated at bedside, pt improving clinically with no further abdominal pain, N/V. Tolerating diet,no fevers or chills. ROS: A 12pt ROS was negative except as above. Objective - Vital Signs/Intake and Output Vital Signs (last 24 hours): Temp Pulse Resp BP Pulse Ox 98.7 F 101 H 20 127/84 96 07/10/17 01:00 07/10/17 01:00 07/10/17 01:00 07/10/17 01:00 07/10/17 01:00 Intake and Output: 07/10/17 07/10/17 06:59 18:59 Intake Total 500 Output Total 200 Balance 300 - Medications Medications: Current Medications Allopurinol (Zyloprim) 300 mg PO DAILY [facility] Last Admin: 07/09/17 13:16 Dose: 300 mg Amlodipine Besylate (Norvasc) 10 mg PO DAILY [facility] Last Admin: 07/09/17 13:15 Dose: 10 mg Docusate Sodium (Colace) 100 mg PO DAILY [facility] Last Admin: 07/09/17 13:15 Dose: 100 mg Ferrous Sulfate (Feosol) 325 mg PO DAILY [facility] Last Admin: 07/09/17 13:15 Dose: 325 mg Heparin Sodium (Porcine) (Heparin) 5,000 units SC Q12 [facility] Last Admin: 07/09/17 21:58 Dose: 5,000 units Hydrochlorothiazide (Hydrodiuril) 25 mg PO DAILY [facility] Last Admin: 07/09/17 13:15 Dose: 25 mg Piperacillin Sod/Tazobactam Sod (Zosyn 2.25 Gm Iv Premix) 2.25 gm in 50 mls @ 100 mls/hr IVPB Q6H [facility] Last Admin: 07/10/17 02:51 Dose: 100 mls/hr Insulin Human Regular (Novolin R) 0 unit SC ACHS [facility] PRN Reason: Protocol Last Admin: 07/10/17 08:07 Dose: Not Given - Labs Labs: 07/10/17 08:18 07/09/17 06:37 - Constitutional Appears: Non-toxic, No Acute Distress - Head Exam Head Exam: ATRAUMATIC, NORMAL INSPECTION, NORMOCEPHALIC - Eye Exam Eye Exam: EOMI, Normal appearance, PERRL - ENT Exam ENT Exam: Mucous Membranes Moist - Respiratory Exam Respiratory Exam: Decreased Breath Sounds, NORMAL BREATHING PATTERN - Cardiovascular Exam Cardiovascular Exam: REGULAR RHYTHM - GI/Abdominal Exam GI & Abdominal Exam: Soft, Normal Bowel Sounds. absent: Distended, Guarding, Tenderness, Organomegaly - Extremities Exam Extremities Exam: Normal Inspection - Neurological Exam Neurological Exam: Alert, Awake, Oriented x3 - Psychiatric Exam Psychiatric exam: Normal Affect, Normal Mood - Skin Skin Exam: Dry, Intact, Normal Color, Warm Assessment and Plan - Assessment and Plan (Free Text) Assessment: This is a 72yM presenting with abdominal pain, nausea and vomiting. 1. Abdominal pain, nausea and vomiting 2. Bandemia 3. Soft tissue mass by Right colon 4. Possible cirrhosis due to etoh abuse Plan: -Continue supportive care with pain control and anti-emetics -No fevers, no WBC but bandemia, ID following and continue IV per recs -Recommend IR guided biopsy of soft tissue mass -No plan for colonoscopy at this time with one 2yrs ago with 4 polyps removed per pt -Possible cirrhosis on CT imaging, likely from alcohol, LFTs wnl, continue to monitor -Will continue to follow closely <James GILL,Shawn - Last Filed: 07/10/17 16:06> Objective - Vital Signs/Intake and Output Vital Signs (last 24 hours): Temp Pulse Resp BP Pulse Ox 98.7 F 101 H 20 127/84 96 07/10/17 01:00 07/10/17 01:00 07/10/17 01:00 07/10/17 01:00 07/10/17 08:00 Intake and Output: 07/10/17 07/10/17 06:59 18:59 Intake Total 500 Output Total 200 Balance 300 - Medications Medications: Current Medications Allopurinol (Zyloprim) 300 mg PO DAILY [facility] Last Admin: 07/10/17 10:00 Dose: 300 mg Amlodipine Besylate (Norvasc) 10 mg PO DAILY [facility] Last Admin: 07/10/17 10:00 Dose: 10 mg Docusate Sodium (Colace) 100 mg PO DAILY [facility] Last Admin: 07/10/17 10:00 Dose: 100 mg Ferrous Sulfate (Feosol) 325 mg PO DAILY [facility] Last Admin: 07/10/17 10:00 Dose: 325 mg Heparin Sodium (Porcine) (Heparin) 5,000 units SC Q12 [facility] Last Admin: 07/10/17 10:00 Dose: 5,000 units Hydrochlorothiazide (Hydrodiuril) 25 mg PO DAILY [facility] Last Admin: 07/10/17 10:00 Dose: 25 mg Piperacillin Sod/Tazobactam Sod (Zosyn 2.25 Gm Iv Premix) 2.25 gm in 50 mls @ 100 mls/hr IVPB Q6H [facility] Last Admin: 07/10/17 10:02 Dose: 100 mls/hr Metronidazole (Flagyl) 500 mg in 100 mls @ 100 mls/hr IVPB Q8 [facility] Last Admin: 07/10/17 14:49 Dose: 100 mls/hr Insulin Human Regular (Novolin R) 0 unit SC ACHS [facility] PRN Reason: Protocol Last Admin: 07/10/17 12:36 Dose: Not Given - Labs Labs: 07/10/17 08:18 07/10/17 08:18 Attending/Attestation - Attestation I have personally seen and examined this patient.: Yes I have fully participated in the care of the patient.: Yes I have reviewed all pertinent clinical information, including history, physical exam and plan: Yes Notes (Text): 07/10/17 15:59 Patient seen earlier today on rounds. This is a 72 year old M with CKD presenting with abdominal pain, nausea and vomiting and bandemia. CTAP non contrast showing soft tissue mass medial to right colon and fluid collection. Does not look luminal mass but more peritoneal. Also with lymphadenopathy. Will discuss with IR for biopsy ? No s/s of SIRS. On physical exam he has right lower quadrant pain and tenderness on deep palpation. Last colonoscopy 2 years ago which was normal as per patient. Supportive care and IR consult for biopsy and culture. ID consult noted- continue antibiotics. Diet as tolerated. Will benefit from colonoscopy once pain and bandemia has subsided
[2017-07-10 09:03] LABS: ALB/GLOB RATIO 0.9 (1.0-2.1); ALBUMIN 3.4 g/dL (3.5-5.0); CALCIUM 8.4 mg/dl (8.6-10.4)
[2017-07-10] MEDS: metroNIDAZOLE IV 500 mg/100 ml 500 MG/100 ML BAG IVPB SCH ×2 (14:49→21:26)
--- NOTE | 2017-07-10 15:00 | CP.PCM.PN ---
Subjective - Date & Time of Evaluation Date of Evaluation: 07/10/17 Time of Evaluation: 14:59 - Subjective Subjective: BLOOD CULTURE POS , GRM +VE RODS NO FURTHER N/V PER CHART IV AB Objective - Vital Signs/Intake and Output Vital Signs (last 24 hours): Temp Pulse Resp BP Pulse Ox 98.7 F 101 H 20 127/84 96 07/10/17 01:00 07/10/17 01:00 07/10/17 01:00 07/10/17 01:00 07/10/17 08:00 Intake and Output: 07/10/17 07/10/17 11:59 23:59 Intake Total 300 Balance 300 - Medications Medications: Current Medications Allopurinol (Zyloprim) 300 mg PO DAILY [facility] Last Admin: 07/10/17 10:00 Dose: 300 mg Amlodipine Besylate (Norvasc) 10 mg PO DAILY [facility] Last Admin: 07/10/17 10:00 Dose: 10 mg Docusate Sodium (Colace) 100 mg PO DAILY [facility] Last Admin: 07/10/17 10:00 Dose: 100 mg Ferrous Sulfate (Feosol) 325 mg PO DAILY [facility] Last Admin: 07/10/17 10:00 Dose: 325 mg Heparin Sodium (Porcine) (Heparin) 5,000 units SC Q12 [facility] Last Admin: 07/10/17 10:00 Dose: 5,000 units Hydrochlorothiazide (Hydrodiuril) 25 mg PO DAILY [facility] Last Admin: 07/10/17 10:00 Dose: 25 mg Piperacillin Sod/Tazobactam Sod (Zosyn 2.25 Gm Iv Premix) 2.25 gm in 50 mls @ 100 mls/hr IVPB Q6H [facility] Last Admin: 07/10/17 10:02 Dose: 100 mls/hr Metronidazole (Flagyl) 500 mg in 100 mls @ 100 mls/hr IVPB Q8 [facility] Last Admin: 07/10/17 14:49 Dose: 100 mls/hr Insulin Human Regular (Novolin R) 0 unit SC ACHS [facility] PRN Reason: Protocol Last Admin: 07/10/17 12:36 Dose: Not Given - Labs Labs: 07/10/17 08:18 07/10/17 08:18 Assessment and Plan (1) Ascites Status: Acute (2) Abdominal pain Status: Acute (3) Bandemia Status: Acute (4) Renal insufficiency Status: Chronic
[2017-07-10] MEDS ORDERED: Potassium Chloride 20 mEq ER Tab PO ONE (17:30)
[2017-07-10] MEDS ORDERED: Pneumococcal 23-Valent Vaccine IM ONE (18:58)
[2017-07-10] MEDS ORDERED: Influenza Vaccine 60 mcg/0.5 mL SYR (4YR UP) IM ONE (18:59)
--- NOTE | 2017-07-10 19:48 | CP.PCM.PN ---
Subjective - Date & Time of Evaluation Date of Evaluation: 07/10/17 Time of Evaluation: 19:48 - Subjective Subjective: CHIEF COMPLAINTS TODAY : DENIES ABDOMINAL PAIN NO FURTHER VOMITING/OR NAUSEA Tolerating diet. ROS. HEENT : N. 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 Musculoskel : No joint swelling , Derm : No rash Psych : Normal affect. Ext : No swelling ,calf pain PE. Pt. is alert awake in no distress. V.S As noted in the chart Head ,ear nose,throat and eyes : Normal. Neck : Supple with normal carotids. Lungs: Clear air entry. Heart : S1 & S2 normal with S4. No murmur. Abd : Soft tender with normal bowel sounds. Neuro : Moves all ext. with no localized deficit. Ext : No edema with intact pulses.Non tender calves Derm : No rashes or decubitus ulcer. LABS/RADIOLOGY: BLOOD CULTURE 07/08/17 - GPR/GNR CR 8.1/bun 53 INCREASING wbc 7.0. H/H 14.2 ASSESSMENT; GRAM-NEGATIVE BACTEREMIA/ +V GPR. ABDOMINAL PAIN /ETIOLOGY NOT CLEAR RT.COLON MASS R/O OCCULT GI MALIGNANCY. COLITIS/ENTERITIS. ASCITES/ CIRRHOSIS HTN RENAL INSUFFICIENCY. DM. GOUT /PLAN : DC IV ZOSYN START iv AZACTAM 1 G EVERY 8 HOURLY 07/10/17. IV fLAGYL 500 IV EVERY 8 HOURLY .07/09/17 IV HYDRATION ? BX MASS RT .COLON PER GI RECOMMENDATIONS Objective - Vital Signs/Intake and Output Vital Signs (last 24 hours): Temp Pulse Resp BP Pulse Ox 97.5 F L 83 20 120/80 97 07/10/17 08:00 07/10/17 08:00 07/10/17 08:00 07/10/17 08:00 07/10/17 08:00 Intake and Output: 07/10/17 07/11/17 18:59 06:59 Intake Total 650 Balance 650 - Medications Medications: Current Medications Allopurinol (Zyloprim) 300 mg PO DAILY [facility] Last Admin: 07/10/17 10:00 Dose: 300 mg Amlodipine Besylate (Norvasc) 10 mg PO DAILY [facility] Last Admin: 07/10/17 10:00 Dose: 10 mg Docusate Sodium (Colace) 100 mg PO DAILY [facility] Last Admin: 07/10/17 10:00 Dose: 100 mg Ferrous Sulfate (Feosol) 325 mg PO DAILY [facility] Last Admin: 07/10/17 10:00 Dose: 325 mg Heparin Sodium (Porcine) (Heparin) 5,000 units SC Q12 [facility] Last Admin: 07/10/17 10:00 Dose: 5,000 units Hydrochlorothiazide (Hydrodiuril) 25 mg PO DAILY [facility] Last Admin: 07/10/17 10:00 Dose: 25 mg Piperacillin Sod/Tazobactam Sod (Zosyn 2.25 Gm Iv Premix) 2.25 gm in 50 mls @ 100 mls/hr IVPB Q6H [facility] Last Admin: 07/10/17 16:06 Dose: 100 mls/hr Metronidazole (Flagyl) 500 mg in 100 mls @ 100 mls/hr IVPB Q8 [facility] Last Admin: 07/10/17 14:49 Dose: 100 mls/hr Aztreonam 1 gm/ Sodium (Chloride) 100 mls @ 100 mls/hr IVPB Q8H [facility] Insulin Human Regular (Novolin R) 0 unit SC ACHS [facility] PRN Reason: Protocol Last Admin: 07/10/17 12:36 Dose: Not Given - Labs Labs: 07/10/17 08:18 07/10/17 08:18 Assessment and Plan (1) Abdominal pain Status: Acute (2) Ascites Status: Acute (3) Bandemia Status: Acute (4) Renal insufficiency Status: Chronic (5) Diabetes mellitus Status: Acute (6) Hypertension Status: Acute
[2017-07-10] MEDS: Aztreonam 1 GM in Sodium Chloride 0.9% 100 ML IVPB SCH (21:16)
[2017-07-11] MEDS: Piperacill/Tazo 2.25gm in Dex 2.25 GM/50 ML BAG IVPB SCH ×4 (03:32→21:43)
[2017-07-11] MEDS: Aztreonam 1 GM in Sodium Chloride 0.9% 100 ML IVPB SCH ×3 (04:33→19:41)
[2017-07-11] MEDS: metroNIDAZOLE IV 500 mg/100 ml 500 MG/100 ML BAG IVPB SCH ×3 (05:02→21:45)
[2017-07-11 07:32] LABS: BASO % 0.2 % (0.0-2.0); EOS % 0.1 % (0.0-4.0); HEMOGLOBIN 14.4 g/dL (12.0-18.0); LYMPH # 0.7 K/uL (1.0-4.3); LYMPH % 6.1 % (20.0-40.0); MEAN CELL VOLUME 79.3 fL (80.0-94.0); MEAN CORPUSCULAR HEMOGLOBIN 26.5 pg (27.0-31.0); MEAN CORPUSCULAR HGB CONC 33.4 g/dL (33.0-37.0); MEAN PLATELET VOLUME 10.4 fL (7.2-11.7); MONO # 0.8 K/uL (0.0-0.8); MONO % 7.8 % (0.0-10.0); NEUT # 9.4 K/uL (1.8-7.0); NEUT % 85.8 % (50.0-75.0); NRBC % 0.1 % (0.0-2.0); PLATELET COUNT 151 K/uL (130-400); RBC 5.43 Mil/uL (4.40-5.90); RED CELL DISTRIBUTION WIDTH 18.4 % (11.5-14.5)
[2017-07-11 07:40] LABS: ALB/GLOB RATIO 0.9 (1.0-2.1); ALBUMIN 3.4 g/dL (3.5-5.0); CALCIUM 8.6 mg/dl (8.6-10.4)
[2017-07-11] MEDS: (Novolin R) Insulin Human Regular 100 units/ml vial SC SCH ×4 (08:10→21:45)
--- NOTE | 2017-07-11 08:51 | CP.PCM.PN ---
<Nithin Weathers - Last Filed: 07/11/17 09:59> Subjective - Date & Time of Evaluation Date of Evaluation: 07/11/17 Time of Evaluation: 06:45 - Subjective Subjective: PGY5 GI Fellow Progress Note Patient seen and examined bedside this morning. The patient continues to have diffuse abdominal pain, particularly in the LLQ. The patient denies any diarrhea but has subjective fever. 12 system ROS performed and negative except where stated. Objective - Vital Signs/Intake and Output Vital Signs (last 24 hours): Temp Pulse Resp BP Pulse Ox 98.2 F 70 20 115/76 95 07/11/17 00:00 07/11/17 00:00 07/11/17 00:00 07/11/17 00:00 07/11/17 00:00 Intake and Output: 07/11/17 07/11/17 06:59 18:59 Intake Total 500 Output Total 400 Balance 100 - Medications Medications: Current Medications Allopurinol (Zyloprim) 300 mg PO DAILY [facility] Last Admin: 07/10/17 10:00 Dose: 300 mg Amlodipine Besylate (Norvasc) 10 mg PO DAILY [facility] Last Admin: 07/10/17 10:00 Dose: 10 mg Docusate Sodium (Colace) 100 mg PO DAILY [facility] Last Admin: 07/10/17 10:00 Dose: 100 mg Ferrous Sulfate (Feosol) 325 mg PO DAILY [facility] Last Admin: 07/10/17 10:00 Dose: 325 mg Heparin Sodium (Porcine) (Heparin) 5,000 units SC Q12 [facility] Last Admin: 07/10/17 21:25 Dose: 5,000 units Hydrochlorothiazide (Hydrodiuril) 25 mg PO DAILY [facility] Last Admin: 07/10/17 10:00 Dose: 25 mg Piperacillin Sod/Tazobactam Sod (Zosyn 2.25 Gm Iv Premix) 2.25 gm in 50 mls @ 100 mls/hr IVPB Q6H [facility] Last Admin: 07/11/17 03:32 Dose: 100 mls/hr Metronidazole (Flagyl) 500 mg in 100 mls @ 100 mls/hr IVPB Q8 [facility] Last Admin: 07/11/17 05:02 Dose: 100 mls/hr Aztreonam 1 gm/ Sodium (Chloride) 100 mls @ 100 mls/hr IVPB Q8H [facility] Last Admin: 07/11/17 04:33 Dose: 100 mls/hr Insulin Human Regular (Novolin R) 0 unit SC ACHS [facility] PRN Reason: Protocol Last Admin: 07/11/17 08:10 Dose: Not Given Lactulose (Enulose) 20 gm PO HS [facility] Last Admin: 07/10/17 21:02 Dose: 20 gm - Labs Labs: 07/11/17 07:15 07/11/17 07:15 - Constitutional Appears: No Acute Distress, Other (obese) - Eye Exam Eye Exam: EOMI, PERRL - ENT Exam ENT Exam: Mucous Membranes Moist - Respiratory Exam Respiratory Exam: Decreased Breath Sounds. absent: Rales, Rhonchi, Wheezes - Cardiovascular Exam Cardiovascular Exam: RRR, +S1, +S2 - GI/Abdominal Exam GI & Abdominal Exam: Soft, Tenderness (RLQ, LLQ), Mass (RLQ), Normal Bowel Sounds. absent: Distended, Firm, Guarding, Rigid, Organomegaly - Extremities Exam Extremities Exam: Normal Inspection. absent: Pedal Edema - Neurological Exam Neurological Exam: Alert, Awake, Oriented x3 - Psychiatric Exam Psychiatric exam: Normal Affect, Normal Mood - Skin Skin Exam: Dry, Warm Assessment and Plan - Assessment and Plan (Free Text) Assessment: This is a 72yM with PMHx significant for HTN, DM, CKD, gout who presented with abdominal pain, nausea and vomiting. -RLQ fluid collection - R/O perforated diverticulum, abscess, underlying mass lesion -Abdominal pain 2/2 above -MERLY on CKD -Diverticulosis Plan: -Pain persists despite ongoing therapy -Continue broad antibiotic coverage with Aztreonam/Flagyl/Zosyn -ID following -Evaluated CT scan with interventional radiology; fluid collection present - less clear if mass lesion vs inflammed small bowel (ileum); could represent perforated diverticulosis/itis - would recommend ongoing medical therapy and surgical evaluation <Shawn Ramirez MD - Last Filed: 07/11/17 15:04> Objective - Vital Signs/Intake and Output Vital Signs (last 24 hours): Temp Pulse Resp BP Pulse Ox 98.5 F 82 20 112/76 95 07/11/17 08:48 07/11/17 08:48 07/11/17 08:48 07/11/17 08:48 07/11/17 08:48 Intake and Output: 07/11/17 07/11/17 06:59 18:59 Intake Total 500 Output Total 400 Balance 100 - Medications Medications: Current Medications Allopurinol (Zyloprim) 300 mg PO DAILY [facility] Last Admin: 07/11/17 09:17 Dose: 300 mg Amlodipine Besylate (Norvasc) 10 mg PO DAILY [facility] Last Admin: 07/11/17 09:17 Dose: 10 mg Docusate Sodium (Colace) 100 mg PO DAILY [facility] Last Admin: 07/11/17 09:17 Dose: 100 mg Ferrous Sulfate (Feosol) 325 mg PO DAILY [facility] Last Admin: 07/11/17 09:17 Dose: 325 mg Heparin Sodium (Porcine) (Heparin) 5,000 units SC Q12 [facility] Last Admin: 07/11/17 09:17 Dose: 5,000 units Hydrochlorothiazide (Hydrodiuril) 25 mg PO DAILY [facility] Last Admin: 07/11/17 09:17 Dose: 25 mg Hydromorphone HCl (Dilaudid) 0.5 mg IVP Q6H PRN PRN Reason: Pain, severe (8-10) Last Admin: 07/11/17 12:18 Dose: 0.5 mg Piperacillin Sod/Tazobactam Sod (Zosyn 2.25 Gm Iv Premix) 2.25 gm in 50 mls @ 100 mls/hr IVPB Q6H [facility] Last Admin: 07/11/17 14:50 Dose: 100 mls/hr Metronidazole (Flagyl) 500 mg in 100 mls @ 100 mls/hr IVPB Q8 [facility] Last Admin: 07/11/17 13:39 Dose: 100 mls/hr Aztreonam 1 gm/ Sodium (Chloride) 100 mls @ 100 mls/hr IVPB Q8H [facility] Last Admin: 07/11/17 12:24 Dose: 100 mls/hr Insulin Human Regular (Novolin R) 0 unit SC ACHS [facility] PRN Reason: Protocol Last Admin: 07/11/17 12:02 Dose: Not Given Lactulose (Enulose) 20 gm PO HS [facility] Last Admin: 07/10/17 21:02 Dose: 20 gm - Labs Labs: 07/11/17 07:15 07/11/17 07:15 Attending/Attestation - Attestation I have personally seen and examined this patient.: Yes I have fully participated in the care of the patient.: Yes I have reviewed all pertinent clinical information, including history, physical exam and plan: Yes Notes (Text): 07/11/17 14:59 Patient seen this am with GI fellow. This is a 72 yr old M with PMHx significant for HTN, DM, CKD, gout who presented with abdominal pain, nausea and vomiting found to have fluid collection in RLQ. PE- RLQ abdominal tenderness with deep palpation and guarding. Discussed images with radiologist today- likely complicated diverticulitis/ loculated fluid from perforated diverticulum. Will continue antibiotics and follow blood cultures. IR to get fluid cultures for sensitivities. Will benefit from outpatient colonoscopy in 6- 8 weeks once acute issues have resolved.
[2017-07-11 09:13] LABS: ANISOCYTOSIS SLIGHT; BANDS 2 % (0-2); LYMPHOCYTE 5 % (20-40); MONOCYTE 7 % (0-10); NEUTROPHIL 86 % (50-75); PLATELET ESTIMATE NORMAL (NORMAL); TOTAL CELLS COUNTED 100
[2017-07-11 09:14] LABS: BURR CELLS SLIGHT; HYPOCHROMIC SLIGHT; OVALOCYTES SLIGHT; POIKILOCYTOSIS SLIGHT; TARGET CELLS SLIGHT; TEARDROP CELLS SLIGHT
[2017-07-11] MEDS ORDERED: Potassium Chloride 20 mEq ER Tab PO ONE (10:00)
--- NOTE | 2017-07-11 11:15 | CARD ---
APPROVED REPORT EKG Measurement Heart [id number] <Conclusion> Normal sinus rhythm Nonspecific T wave abnormality Abnormal ECG
--- NOTE | 2017-07-11 13:40 | CP.PCM.PN ---
Subjective - Date & Time of Evaluation Date of Evaluation: 07/11/17 Time of Evaluation: 13:38 - Subjective Subjective: CHIEF COMPLAINTS TODAY : ABD PAIN NO N/VOMITING ON IV TOREDOL ROS. HEENT : N. Resp : No cough, wheezing ,pleuritic CP ,or hemoptysis Cardio : No anginal CP, PND, orthopnea, palpitation GI : No GI bleeding . 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 Musculoskel : No joint swelling , Derm : No rash Psych : Normal affect. Ext : No swelling ,calf pain PE. Pt. is alert awake in no distress. V.S As noted in the chart Head ,ear nose,throat and eyes : Normal. Neck : Supple with normal carotids. Lungs: Clear air entry. Heart : S1 & S2 normal with S4. No murmur. Abd : Soft tender with normal bowel sounds. Neuro : Moves all ext. with no localized deficit. Ext : No edema with intact pulses.Non tender calves Derm : No rashes or decubitus ulcer. LABS/RADIOLOGY: ASSESSMENT/PLAN : D/W GI , POSSIBLE PHLEGMON SEC TO PERFORATED DIVERTICULUM BLOOD CULT. POS , PENDING ISOLATION IB AB IR TO ASPIRATE Objective - Vital Signs/Intake and Output Vital Signs (last 24 hours): Temp Pulse Resp BP Pulse Ox 98.5 F 82 20 112/76 95 07/11/17 08:48 07/11/17 08:48 07/11/17 08:48 07/11/17 08:48 07/11/17 08:48 - Medications Medications: Current Medications Allopurinol (Zyloprim) 300 mg PO DAILY [facility] Last Admin: 07/11/17 09:17 Dose: 300 mg Amlodipine Besylate (Norvasc) 10 mg PO DAILY [facility] Last Admin: 07/11/17 09:17 Dose: 10 mg Docusate Sodium (Colace) 100 mg PO DAILY [facility] Last Admin: 07/11/17 09:17 Dose: 100 mg Ferrous Sulfate (Feosol) 325 mg PO DAILY [facility] Last Admin: 07/11/17 09:17 Dose: 325 mg Heparin Sodium (Porcine) (Heparin) 5,000 units SC Q12 [facility] Last Admin: 07/11/17 09:17 Dose: 5,000 units Hydrochlorothiazide (Hydrodiuril) 25 mg PO DAILY [facility] Last Admin: 07/11/17 09:17 Dose: 25 mg Hydromorphone HCl (Dilaudid) 0.5 mg IVP Q6H PRN PRN Reason: Pain, severe (8-10) Last Admin: 07/11/17 12:18 Dose: 0.5 mg Piperacillin Sod/Tazobactam Sod (Zosyn 2.25 Gm Iv Premix) 2.25 gm in 50 mls @ 100 mls/hr IVPB Q6H [facility] Last Admin: 07/11/17 09:19 Dose: 100 mls/hr Metronidazole (Flagyl) 500 mg in 100 mls @ 100 mls/hr IVPB Q8 [facility] Last Admin: 07/11/17 05:02 Dose: 100 mls/hr Aztreonam 1 gm/ Sodium (Chloride) 100 mls @ 100 mls/hr IVPB Q8H [facility] Last Admin: 07/11/17 12:24 Dose: 100 mls/hr Insulin Human Regular (Novolin R) 0 unit SC ACHS [facility] PRN Reason: Protocol Last Admin: 07/11/17 12:02 Dose: Not Given Lactulose (Enulose) 20 gm PO HS [facility] Last Admin: 07/10/17 21:02 Dose: 20 gm - Labs Labs: 07/11/17 07:15 07/11/17 07:15 Assessment and Plan (1) Ascites Status: Acute (2) Abdominal pain Status: Acute (3) Bandemia Status: Acute (4) Renal insufficiency Status: Chronic
--- NOTE | 2017-07-11 23:11 | CP.PCM.PN ---
Subjective - Date & Time of Evaluation Date of Evaluation: 07/11/17 Time of Evaluation: 23:11 - Subjective Subjective: CHIEF COMPLAINTS TODAY : C/O ABDOMINAL PAIN HEATH LLQ NO FURTHER VOMITING/OR NAUSEA APPETITE POOR ROS. HEENT : N. Resp : No cough, wheezing ,pleuritic CP ,or hemoptysis Cardio : No anginal CP, PND, orthopnea, palpitation GI : No GI bleeding NO N/OR VOMITING BLOOD COORDINATOR : No headache, vertigo, focal deficit. Musculoskel : No joint swelling , Derm : No rash Psych : Normal affect. Ext : No swelling ,calf pain PE. Pt. is alert awake in no distress. V.S As noted in the chart Head ,ear nose,throat and eyes : Normal. Neck : Supple with normal carotids. Lungs: Clear air entry. Heart : S1 & S2 normal with S4. No murmur. Abd :SOFT ,TENDERNESS LLQ with normal bowel sounds. Neuro : Moves all ext. with no localized deficit. Ext : No edema with intact pulses.Non tender calves Derm : No rashes or decubitus ulcer. LABS/RADIOLOGY: BLOOD CULTURE 07/08/17 - GPR/GNR CR 2.3 /bun 50 IMPROVING wbc 11.0 H/H 14.4 PLT 151 IMPROVING. ASSESSMENT; GRAM-NEGATIVE BACTEREMIA/ +V GPR. ABDOMINAL PAIN /ETIOLOGY NOT CLEAR RT.COLON MASS R/O DIVERTICULAR ABSCESS VS OCCULT GI MASS COLITIS/ENTERITIS. ASCITES/ CIRRHOSIS HTN RENAL INSUFFICIENCY. DM. GOUT /PLAN : CONTINUE IV ZOSYN 3.375MG IV Q 8HRLY. CONTINUE iv AZACTAM 1 G EVERY 8 HOURLY 07/10/17. IV fLAGYL 500 IV EVERY 8 HOURLY .07/09/17 IV HYDRATION ? BX MASS RT .COLON PER GI RECOMMENDATIONS - SURGICAL EVALUATION Objective - Vital Signs/Intake and Output Vital Signs (last 24 hours): Temp Pulse Resp BP Pulse Ox 98.0 F 103 H 20 127/89 96 07/11/17 16:31 07/11/17 16:31 07/11/17 16:31 07/11/17 16:31 07/11/17 16:31 Intake and Output: 07/11/17 07/12/17 18:59 06:59 Intake Total 750 400 Output Total 700 Balance 750 -300 - Medications Medications: Current Medications Allopurinol (Zyloprim) 300 mg PO DAILY [facility] Last Admin: 07/11/17 09:17 Dose: 300 mg Amlodipine Besylate (Norvasc) 10 mg PO DAILY [facility] Last Admin: 07/11/17 09:17 Dose: 10 mg Docusate Sodium (Colace) 100 mg PO DAILY [facility] Last Admin: 07/11/17 09:17 Dose: 100 mg Ferrous Sulfate (Feosol) 325 mg PO DAILY [facility] Last Admin: 07/11/17 09:17 Dose: 325 mg Heparin Sodium (Porcine) (Heparin) 5,000 units SC Q12 [facility] Last Admin: 07/11/17 21:44 Dose: Not Given Hydrochlorothiazide (Hydrodiuril) 25 mg PO DAILY [facility] Last Admin: 07/11/17 09:17 Dose: 25 mg Piperacillin Sod/Tazobactam Sod (Zosyn 2.25 Gm Iv Premix) 2.25 gm in 50 mls @ 100 mls/hr IVPB Q6H [facility] Last Admin: 07/11/17 21:43 Dose: 100 mls/hr Metronidazole (Flagyl) 500 mg in 100 mls @ 100 mls/hr IVPB Q8 [facility] Last Admin: 07/11/17 21:45 Dose: 100 mls/hr Aztreonam 1 gm/ Sodium (Chloride) 100 mls @ 100 mls/hr IVPB Q8H [facility] Last Admin: 07/11/17 19:41 Dose: 100 mls/hr Insulin Human Regular (Novolin R) 0 unit SC ACHS [facility] PRN Reason: Protocol Last Admin: 07/11/17 21:45 Dose: Not Given Lactulose (Enulose) 20 gm PO HS [facility] Last Admin: 07/11/17 21:52 Dose: 20 gm - Labs Labs: 07/11/17 07:15 07/11/17 07:15 Assessment and Plan (1) Abdominal pain Status: Acute (2) Ascites Status: Acute (3) Bandemia Status: Acute (4) Renal insufficiency Status: Chronic (5) Diabetes mellitus Status: Acute (6) Hypertension Status: Acute
[2017-07-12] MEDS: Piperacill/Tazo 2.25gm in Dex 2.25 GM/50 ML BAG IVPB SCH ×4 (03:09→21:30)
[2017-07-12] MEDS: Aztreonam 1 GM in Sodium Chloride 0.9% 100 ML IVPB SCH ×3 (04:26→19:42)
[2017-07-12] MEDS: metroNIDAZOLE IV 500 mg/100 ml 500 MG/100 ML BAG IVPB SCH ×3 (05:23→21:47)
--- NOTE | 2017-07-12 07:35 | CP.PCM.PN ---
<Nithin Weathers - Last Filed: 07/12/17 08:23> Subjective - Date & Time of Evaluation Date of Evaluation: 07/12/17 Time of Evaluation: 06:30 - Subjective Subjective: PGY5 GI Fellow Progress Note Patient seen and examined bedside this morning. The patient states that he is feeling better overall but continues to have shortness of breath. Abdominal pain improved B/L. Admits to +BM yesterday with no issue. NPO for IR procedure today. 12 system ROS performed and negative except where stated. Objective - Vital Signs/Intake and Output Vital Signs (last 24 hours): Temp Pulse Resp BP Pulse Ox 98.6 F 87 20 101/62 95 07/12/17 01:00 07/12/17 01:00 07/12/17 01:00 07/12/17 01:00 07/12/17 01:00 Intake and Output: 07/12/17 07/12/17 06:59 18:59 Intake Total 400 Output Total 700 Balance -300 - Medications Medications: Current Medications Allopurinol (Zyloprim) 300 mg PO DAILY [facility] Last Admin: 07/11/17 09:17 Dose: 300 mg Amlodipine Besylate (Norvasc) 10 mg PO DAILY [facility] Last Admin: 07/11/17 09:17 Dose: 10 mg Docusate Sodium (Colace) 100 mg PO DAILY [facility] Last Admin: 07/11/17 09:17 Dose: 100 mg Ferrous Sulfate (Feosol) 325 mg PO DAILY [facility] Last Admin: 07/11/17 09:17 Dose: 325 mg Heparin Sodium (Porcine) (Heparin) 5,000 units SC Q12 [facility] Last Admin: 07/11/17 21:44 Dose: Not Given Hydrochlorothiazide (Hydrodiuril) 25 mg PO DAILY [facility] Last Admin: 07/11/17 09:17 Dose: 25 mg Piperacillin Sod/Tazobactam Sod (Zosyn 2.25 Gm Iv Premix) 2.25 gm in 50 mls @ 100 mls/hr IVPB Q6H [facility] Last Admin: 07/12/17 03:09 Dose: 100 mls/hr Metronidazole (Flagyl) 500 mg in 100 mls @ 100 mls/hr IVPB Q8 [facility] Last Admin: 07/12/17 05:23 Dose: 100 mls/hr Aztreonam 1 gm/ Sodium (Chloride) 100 mls @ 100 mls/hr IVPB Q8H [facility] Last Admin: 07/12/17 04:26 Dose: 100 mls/hr Insulin Human Regular (Novolin R) 0 unit SC ACHS [facility] PRN Reason: Protocol Last Admin: 07/11/17 21:45 Dose: Not Given Lactulose (Enulose) 20 gm PO HS [facility] Last Admin: 07/11/17 21:52 Dose: 20 gm - Labs Labs: 07/11/17 07:15 07/11/17 07:15 - Constitutional Appears: Non-toxic, No Acute Distress, Other (obese) - Eye Exam Eye Exam: EOMI, PERRL - ENT Exam ENT Exam: Mucous Membranes Dry - Respiratory Exam Respiratory Exam: Decreased Breath Sounds. absent: Rales, Rhonchi, Wheezes - Cardiovascular Exam Cardiovascular Exam: RRR, +S1, +S2 - GI/Abdominal Exam GI & Abdominal Exam: Distended, Soft, Normal Bowel Sounds. absent: Firm, Guarding, Rigid, Tenderness, Organomegaly - Extremities Exam Extremities Exam: Normal Inspection. absent: Pedal Edema - Neurological Exam Neurological Exam: Alert, Awake, Oriented x3 - Psychiatric Exam Psychiatric exam: Normal Affect, Normal Mood - Skin Skin Exam: Dry, Warm Assessment and Plan - Assessment and Plan (Free Text) Assessment: Patient is a 72yo male with PMHx significant for HTN, DM, CKD, gout who presented with abdominal pain, nausea and vomiting. -RLQ fluid collection - favor diagnosis of complicated diverticulitis with abscess formation -Abdominal pain 2/2 above -MERLY on CKD -Diverticulosis Plan: -Pain improved today -Plan for IR guided drainage/sampling of fluid collection seen previously on CT scan to help direct ABX therapy -Continued on broad spectrum ABX with Aztreonam/Flagyl/Zosyn -Consider surgical evaluation given suspicion for suspected complicated diverticulitis with abscess formation -ID following -Will require colonoscpy 6-8 weeks from resolution of acute issues <Kalen Chung - Last Filed: 07/12/17 08:50> Objective - Vital Signs/Intake and Output Vital Signs (last 24 hours): Temp Pulse Resp BP Pulse Ox 97.7 F 115 H 20 145/97 H 97 07/12/17 08:28 07/12/17 08:28 07/12/17 08:28 07/12/17 08:28 07/12/17 08:28 Intake and Output: 07/12/17 07/12/17 06:59 18:59 Intake Total 400 Output Total 700 Balance -300 - Medications Medications: Current Medications Allopurinol (Zyloprim) 300 mg PO DAILY [facility] Last Admin: 07/11/17 09:17 Dose: 300 mg Amlodipine Besylate (Norvasc) 10 mg PO DAILY [facility] Last Admin: 07/11/17 09:17 Dose: 10 mg Docusate Sodium (Colace) 100 mg PO DAILY [facility] Last Admin: 07/11/17 09:17 Dose: 100 mg Ferrous Sulfate (Feosol) 325 mg PO DAILY [facility] Last Admin: 07/11/17 09:17 Dose: 325 mg Heparin Sodium (Porcine) (Heparin) 5,000 units SC Q12 [facility] Last Admin: 07/11/17 21:44 Dose: Not Given Hydrochlorothiazide (Hydrodiuril) 25 mg PO DAILY [facility] Last Admin: 07/11/17 09:17 Dose: 25 mg Piperacillin Sod/Tazobactam Sod (Zosyn 2.25 Gm Iv Premix) 2.25 gm in 50 mls @ 100 mls/hr IVPB Q6H [facility] Last Admin: 07/12/17 03:09 Dose: 100 mls/hr Metronidazole (Flagyl) 500 mg in 100 mls @ 100 mls/hr IVPB Q8 [facility] Last Admin: 07/12/17 05:23 Dose: 100 mls/hr Aztreonam 1 gm/ Sodium (Chloride) 100 mls @ 100 mls/hr IVPB Q8H [facility] Last Admin: 07/12/17 04:26 Dose: 100 mls/hr Insulin Human Regular (Novolin R) 0 unit SC ACHS [facility] PRN Reason: Protocol Last Admin: 07/12/17 08:03 Dose: Not Given Lactulose (Enulose) 20 gm PO HS [facility] Last Admin: 07/11/17 21:52 Dose: 20 gm - Labs Labs: 07/12/17 07:50 07/12/17 07:50 Attending/Attestation - Attestation I have personally seen and examined this patient.: Yes I have fully participated in the care of the patient.: Yes I have reviewed all pertinent clinical information, including history, physical exam and plan: Yes Notes (Text): 07/12/17 08:46 I have seen and examined patient with GI fellow. No acute events overnight, he is seen resting in bed comfortably. He endorses labored breathing but denies abdominal pain, nausea, vomiting, fever/chills. Tolerating PO diet without difficulty, review of vitals from today are normal. HTN / DM CKD Abdominal pain - suspected complicated diverticulitis with associated maida- colonic abscess/fluid collection Weight loss, unexplained - Continue with antibiotic therapy as per ID - Patient planned for IR guided drainage of fluid collection today, will follow up fluid results - Pain control - Diet may be resumed following IR procedure - Obtain prior endoscopic report from colonoscopy 2 years ago - Patient will require repeat colonoscopy 6-8 weeks following resolution of acute symptoms which should be scheduled electively as outpatient
[2017-07-12] MEDS: (Novolin R) Insulin Human Regular 100 units/ml vial SC SCH ×4 (08:03→21:56)
[2017-07-12 08:04] LABS: BASO % 0.2 % (0.0-2.0); EOS % 0.3 % (0.0-4.0); HEMOGLOBIN 13.7 g/dL (12.0-18.0); LYMPH % 9.8 % (20.0-40.0); MEAN CELL VOLUME 79.6 fL (80.0-94.0); MEAN CORPUSCULAR HEMOGLOBIN 26.6 pg (27.0-31.0); MEAN CORPUSCULAR HGB CONC 33.4 g/dL (33.0-37.0); MEAN PLATELET VOLUME 10.1 fL (7.2-11.7); MONO # 1.3 K/uL (0.0-0.8); MONO % 12.8 % (0.0-10.0); NEUT # 7.9 K/uL (1.8-7.0); NEUT % 76.9 % (50.0-75.0); PLATELET COUNT 170 K/uL (130-400); RBC 5.16 Mil/uL (4.40-5.90); RED CELL DISTRIBUTION WIDTH 18.2 % (11.5-14.5); WHITE BLOOD COUNT 10.2 K/uL (4.8-10.8)
[2017-07-12 08:39] LABS: ALB/GLOB RATIO 0.8 (1.0-2.1); ALBUMIN 3.1 g/dL (3.5-5.0)
[2017-07-12 08:59] LABS: INR 1.2; PROTHROMBIN TIME 13.6 SECONDS (9.7-12.2)
[2017-07-12 09:42] LABS: BANDS 1 % (0-2); LYMPHOCYTE 10 % (20-40); MONOCYTE 13 % (0-10); NEUTROPHIL 76 % (50-75); PLATELET ESTIMATE NORMAL (NORMAL); TOTAL CELLS COUNTED 100
[2017-07-12] MEDS ORDERED: Propofol 10 mg/ml Inj (20 ML) ONE (11:25)
--- NOTE | 2017-07-12 11:54 | PCM.IRPREO ---
Pre Procedure Note - History Proposed Procedure: Image guided aspiration of RLQ collection Pre-Op Diagnosis: Diverticular abscess - Pre Procedure Were any radiologic studies performed in the last 12 months: Yes List of radiologic studies performed: CT abdomen Was medical management performed in the past 24 months: Yes List of medical management performed: Antibiotics Clinical indication for the procedure: Abdominal collection, diverticular disease Have risks and benefits been explained to the patient: Yes Risks and benefits been explained to the patient: Risk included bleeding, bowel injury, infection Have alternatives to surgery explained to the patient as applicable: Yes - Allergies Allergies: Allergies No Known Allergies Allergy (Verified 07/08/17 11:42) - Physical Exam Vital Signs: Vital Signs 07/12/17 08:28 Temperature 97.7 F Pulse Rate 115 H Respiratory 20 Rate Blood Pressure 145/97 H O2 Sat by Pulse 97 Oximetry Neuro: WNL Heart: WNL Lungs: WNL GI: WNL - Impression Impression: Pt with diverticular disease and RLQ collection that is too small for a drainage catheter. IR asked to perform aspiration for culture. Plan CT and US guided aspiration of RLQ collection. Pt. Evaluated Today:Candidate for Anesthesia & Procedure: ASA 3 Malampati 3 - Date & Time Date: 07/12/17 Time: 11:15
--- NOTE | 2017-07-12 11:56 | PCM.SURG1 ---
Surgeon's Initial Post Op Note - Surgeon's Notes Surgeon: Alvin Nino MD [employer] Instrument Repairer: NONE Type of Anesthesia: IV Sedation Pre-Operative Diagnosis: Abdominal RLQ collection Operative Findings: CT showed small amount of ascites, collection RLQ is present. Post-Operative Diagnosis: Abdominal collection Operation Performed: CT and US guided aspiration of RLQ collection Specimen/Specimens Removed: 60 cc of greenish fluid Estimated Blood Loss: EBL {In ML}: 0 Blood Products Given: N/A Drains Used: No Drains Post-Op Condition: Fair Date of Surgery/Procedure: 07/12/17 Time of Surgery/Procedure: 11:45
--- NOTE | 2017-07-12 12:51 | CT ---
PROCEDURE: CT Abdomen without intravenous contrast HISTORY: RLQ collection COMPARISON: None. TECHNIQUE: Axial images of the abdomen from the liver to iliac crest without intravenous contrast enhancement. Coronal and sagittal reformats generated. Oral contrast was administered 2 days previously. Radiation dose: Total exam DLP = 926.80 MGy-cm. This CT exam was performed using one or more of the following dose reduction techniques: Automated exposure control, adjustment of the mA and/or kV according to patient size, and/or use of iterative reconstruction technique. FINDINGS: LOWER THORAX: LIVER: Unremarkable. No gross lesion or ductal dilatation. GALLBLADDER AND BILE DUCTS: Unremarkable. PANCREAS: Unremarkable. No gross lesion or ductal dilatation. SPLEEN: Unremarkable. ADRENALS: Unremarkable. No mass. KIDNEYS AND URETERS: Hypodense lesions on right and left kidneys unchanged previous study VASCULATURE: No aortic aneurysm. BOWEL: Unremarkable. No obstruction. No gross mural thickening. APPENDIX: Normal appendix. PERITONEUM: Small amount of free fluid within the abdomen. Right lower quadrant collection again seen. Additionally, previously described soft tissue mass is again seen with the central portion of increased density which is unchanged from prior study. LYMPH NODES: Unremarkable. No enlarged lymph nodes. BONES: No acute fracture. OTHER FINDINGS: None. IMPRESSION: Limited CT scans for the purpose abdominal abscess drainage. Again seen is a right lower quadrant fluid collection.
--- NOTE | 2017-07-12 13:28 | CP.PCM.PN ---
Subjective - Date & Time of Evaluation Date of Evaluation: 07/12/17 Time of Evaluation: 13:27 - Subjective Subjective: CHIEF COMPLAINTS TODAY : ABD PAIN NO N/VOMITING ON IV TOREDOL S/P ASPIRATION OF 60 CC GREENISH FLUID FROM ABD ROS. HEENT : N. Resp : No cough, wheezing ,pleuritic CP ,or hemoptysis Cardio : No anginal CP, PND, orthopnea, palpitation GI : No GI bleeding . INFO SPECIALIST : No headache, vertigo, focal deficit. Musculoskel : No joint swelling , Derm : No rash Psych : Normal affect. Ext : No swelling ,calf pain PE. Pt. is alert awake in no distress. V.S As noted in the chart Head ,ear nose,throat and eyes : Normal. Neck : Supple with normal carotids. Lungs: Clear air entry. Heart : S1 & S2 normal with S4. No murmur. Abd : Soft tender with normal bowel sounds. Neuro : Moves all ext. with no localized deficit. Ext : No edema with intact pulses.Non tender calves Derm : No rashes or decubitus ulcer. LABS/RADIOLOGY: ASSESSMENT/PLAN : D/W GI , POSSIBLE PHLEGMON SEC TO PERFORATED DIVERTICULUM BLOOD CULT. POS , PENDING ISOLATION IB AB Objective - Vital Signs/Intake and Output Vital Signs (last 24 hours): Temp Pulse Resp BP Pulse Ox 97.7 F 115 H 20 145/97 H 97 07/12/17 08:28 07/12/17 08:28 07/12/17 08:28 07/12/17 08:28 07/12/17 08:28 Intake and Output: 07/12/17 07/12/17 11:59 23:59 Intake Total 0 Balance 0 - Medications Medications: Current Medications Allopurinol (Zyloprim) 300 mg PO DAILY [facility] Last Admin: 07/12/17 09:20 Dose: 300 mg Amlodipine Besylate (Norvasc) 10 mg PO DAILY [facility] Last Admin: 07/12/17 09:20 Dose: 10 mg Docusate Sodium (Colace) 100 mg PO DAILY [facility] Last Admin: 07/12/17 09:20 Dose: 100 mg Ferrous Sulfate (Feosol) 325 mg PO DAILY [facility] Last Admin: 07/12/17 09:20 Dose: 325 mg Heparin Sodium (Porcine) (Heparin) 5,000 units SC Q12 [facility] Last Admin: 07/12/17 10:43 Dose: Not Given Hydrochlorothiazide (Hydrodiuril) 25 mg PO DAILY [facility] Last Admin: 07/12/17 09:20 Dose: 25 mg Piperacillin Sod/Tazobactam Sod (Zosyn 2.25 Gm Iv Premix) 2.25 gm in 50 mls @ 100 mls/hr IVPB Q6H [facility] Last Admin: 07/12/17 09:20 Dose: 100 mls/hr Metronidazole (Flagyl) 500 mg in 100 mls @ 100 mls/hr IVPB Q8 [facility] Last Admin: 07/12/17 05:23 Dose: 100 mls/hr Aztreonam 1 gm/ Sodium (Chloride) 100 mls @ 100 mls/hr IVPB Q8H [facility] Last Admin: 07/12/17 12:20 Dose: 100 mls/hr Insulin Human Regular (Novolin R) 0 unit SC ACHS [facility] PRN Reason: Protocol Last Admin: 07/12/17 11:27 Dose: Not Given Lactulose (Enulose) 20 gm PO HS [facility] Last Admin: 07/11/17 21:52 Dose: 20 gm - Labs Labs: 07/12/17 07:50 07/12/17 07:50 PT 13.6 SECONDS (9.7-12.2) H 07/12/17 08:42 INR 1.2 07/12/17 08:42 Assessment and Plan (1) Ascites Status: Acute (2) Abdominal pain Status: Acute (3) Bandemia Status: Acute (4) Renal insufficiency Status: Chronic
--- NOTE | 2017-07-12 14:06 | US ---
PROCEDURE: Date of procedure: 07/12/2017 Procedure: 1. Right lower abdominal abscess drainage with ultrasound guidance, CPT 49359 Medications: The patient received IV sedation administered by anesthesiologist HISTORY: Abdominal abscess TECHNIQUE: Following informed consent procedure time-out, limited ultrasound performed the patient showed a small collection right lower quadrant consistent with collection seen on previous CT scan. After the patient abdomen was prepped and draped in the usual sterile fashion, the skin was anesthetized with 1 % lidocaine. A 5 [email or web address] catheter was advanced under ultrasound guidance into the collection. 60 cubic centimeters of greenish purulent fluid was removed and sent for culture. A dressing was applied. IMPRESSION: Ultrasound-guided aspiration of right lower quadrant abdominal collection. The fluid specimen was sent for culture sensitivity.
[2017-07-12] MEDS ORDERED: Potassium Chloride 20 mEq ER Tab PO STA (16:48)
[2017-07-12] MEDS: HYDROmorphone 0.5 mg/0.5 ml ISec IVP PRN (17:15)
--- NOTE | 2017-07-12 23:05 | CP.PCM.PN ---
Subjective - Date & Time of Evaluation Date of Evaluation: 07/12/17 Time of Evaluation: 23:05 - Subjective Subjective: CHIEF COMPLAINTS TODAY : AFEBRILE C/O ABDOMINAL PAIN. S/P CT/US guided aspiration abdominal fluid right lower quadrant by IR.07/12/17 ROS. HEENT : N. Resp : No cough, wheezing ,pleuritic CP ,or hemoptysis Cardio : No anginal CP, PND, orthopnea, palpitation GI : No GI bleeding NO N/OR VOMITING LOADER MALT [employer]SE : No headache, vertigo, focal deficit. Musculoskel : No joint swelling , Derm : No rash Psych : Normal affect. Ext : No swelling ,calf pain PE. Pt. is alert awake in no distress. V.S As noted in the chart Head ,ear nose,throat and eyes : Normal. Neck : Supple with normal carotids. Lungs: Clear air entry. Heart : S1 & S2 normal with S4. No murmur. Abd :SOFT ,TENDERNESS LLQ with normal bowel sounds. Neuro : Moves all ext. with no localized deficit. Ext : No edema with intact pulses.Non tender calves Derm : No rashes or decubitus ulcer. LABS/RADIOLOGY: BLOOD CULTURE 07/08/17 - corynebacterium species ? contaminant-skin saurabh CR 1.7/BUN 45 improving WBC 10.2 H&H 13.7/41.0 PLT 170 IMPROVING. lfts bilirubin 1.1, transaminases normal. ASSESSMENT; blood culture positive for corynebacterium species ? contaminating skin saurabh ABDOMINAL PAIN /ETIOLOGY NOT CLEAR S/P IR ASPIRATION ABDOMINAL FLUID RIGHT LOWER QUADRANT RT.COLON MASS R/O DIVERTICULAR ABSCESS VS OCCULT GI MASS COLITIS/ENTERITIS. ASCITES/ CIRRHOSIS HTN RENAL INSUFFICIENCY. DM. GOUT /PLAN : CONTINUE IV ZOSYN 3.375MG IV Q 8HRLY. CONTINUE iv AZACTAM 1 G EVERY 8 HOURLY 07/10/17. IV fLAGYL 500 IV EVERY 8 HOURLY .07/09/17 IV HYDRATION F/U RIGHT LOWER QUADRANT ASPIRATE FLUID PER GI RECOMMENDATIONS Objective - Vital Signs/Intake and Output Vital Signs (last 24 hours): Temp Pulse Resp BP Pulse Ox 98.0 F 82 20 122/85 95 07/12/17 16:21 07/12/17 16:21 07/12/17 16:21 07/12/17 16:21 07/12/17 16:21 Intake and Output: 07/12/1718 18:59 06:59 Intake Total 250 Balance 250 - Medications Medications: Current Medications Allopurinol (Zyloprim) 300 mg PO DAILY [facility] Last Admin: 07/12/17 09:20 Dose: 300 mg Amlodipine Besylate (Norvasc) 10 mg PO DAILY [facility] Last Admin: 07/12/17 09:20 Dose: 10 mg Docusate Sodium (Colace) 100 mg PO DAILY [facility] Last Admin: 07/12/17 09:20 Dose: 100 mg Ferrous Sulfate (Feosol) 325 mg PO DAILY [facility] Last Admin: 07/12/17 09:20 Dose: 325 mg Hydrochlorothiazide (Hydrodiuril) 25 mg PO DAILY [facility] Last Admin: 07/12/17 09:20 Dose: 25 mg Hydromorphone HCl (Dilaudid) 0.5 mg IVP Q6H PRN PRN Reason: Pain, severe (8-10) Last Admin: 07/12/17 17:15 Dose: 0.5 mg Piperacillin Sod/Tazobactam Sod (Zosyn 2.25 Gm Iv Premix) 2.25 gm in 50 mls @ 100 mls/hr IVPB Q6H [facility] Last Admin: 07/12/17 21:30 Dose: 100 mls/hr Metronidazole (Flagyl) 500 mg in 100 mls @ 100 mls/hr IVPB Q8 [facility] Last Admin: 07/12/17 21:47 Dose: 100 mls/hr Aztreonam 1 gm/ Sodium (Chloride) 100 mls @ 100 mls/hr IVPB Q8H [facility] Last Admin: 07/12/17 19:42 Dose: 100 mls/hr Insulin Human Regular (Novolin R) 0 unit SC ACHS [facility] PRN Reason: Protocol Last Admin: 07/12/17 21:56 Dose: Not Given Lactulose (Enulose) 20 gm PO HS [facility] Last Admin: 07/12/17 21:55 Dose: 20 gm - Labs Labs: 07/12/17 07:50 07/12/17 07:50 PT 13.6 SECONDS (9.7-12.2) H 07/12/17 08:42 INR 1.2 07/12/17 08:42 Assessment and Plan (1) Abdominal pain Status: Acute (2) Ascites Status: Acute (3) Bandemia Status: Acute (4) Renal insufficiency Status: Chronic (5) Diabetes mellitus Status: Acute (6) Hypertension Status: Acute
[2017-07-13] MEDS: Piperacill/Tazo 2.25gm in Dex 2.25 GM/50 ML BAG IVPB SCH ×4 (02:50→21:34)
[2017-07-13] MEDS: Aztreonam 1 GM in Sodium Chloride 0.9% 100 ML IVPB SCH ×3 (03:39→20:31)
[2017-07-13] MEDS: metroNIDAZOLE IV 500 mg/100 ml 500 MG/100 ML BAG IVPB SCH ×3 (05:07→22:10)
[2017-07-13 07:50] LABS: BASO % 0.1 % (0.0-2.0); EOS % 0.5 % (0.0-4.0); HEMOGLOBIN 14.4 g/dL (12.0-18.0); LYMPH # 1.3 K/uL (1.0-4.3); LYMPH % 12.8 % (20.0-40.0); MEAN CELL VOLUME 79.2 fL (80.0-94.0); MEAN CORPUSCULAR HEMOGLOBIN 26.9 pg (27.0-31.0); MONO # 1.5 K/uL (0.0-0.8); MONO % 15.5 % (0.0-10.0); NEUT % 71.1 % (50.0-75.0); RBC 5.35 Mil/uL (4.40-5.90); WHITE BLOOD COUNT 9.8 K/uL (4.8-10.8)
[2017-07-13] MEDS: (Novolin R) Insulin Human Regular 100 units/ml vial SC SCH ×4 (08:00→21:36)
[2017-07-13 08:41] LABS: ALB/GLOB RATIO 0.9 (1.0-2.1); ALBUMIN 3.1 g/dL (3.5-5.0); ALT/SGPT 29 U/L (21-72); AST/SGOT 28 U/L (17-59); BLOOD UREA NITROGEN 43 mg/dL (9-20); CALCIUM 9.1 mg/dl (8.6-10.4); GFR AFRICAN-AMERICAN > 60; GFR NON-AFRICAN AMERICAN 50
--- NOTE | 2017-07-13 09:21 | CP.PCM.PN ---
<Nithin Weathers - Last Filed: 07/13/17 09:18> Subjective - Date & Time of Evaluation Date of Evaluation: 07/13/17 Time of Evaluation: 07:00 - Subjective Subjective: PGY5 GI Fellow Progress Note Patient seen and examined bedside this morning. The patient states that he continues to have epigastric abdominal pain with radiation to the chest today. No discomfort in lower abdomen and none on right lower quadrant where IR sample obtained yesterday. No fever, chills. Admits to continued SOB with orthopnea. 12 system ROS performed and negative except where stated. Objective - Vital Signs/Intake and Output Vital Signs (last 24 hours): Temp Pulse Resp BP Pulse Ox 98.4 F 100 H 20 130/85 100 07/13/17 00:00 07/13/17 00:00 07/13/17 00:00 07/13/17 00:00 07/13/17 00:00 Intake and Output: 07/13/17 07/13/17 06:59 18:59 Intake Total 990 Balance 990 - Medications Medications: Current Medications Allopurinol (Zyloprim) 300 mg PO DAILY [facility] Last Admin: 07/12/17 09:20 Dose: 300 mg Amlodipine Besylate (Norvasc) 10 mg PO DAILY [facility] Last Admin: 07/12/17 09:20 Dose: 10 mg Docusate Sodium (Colace) 100 mg PO DAILY [facility] Last Admin: 07/12/17 09:20 Dose: 100 mg Ferrous Sulfate (Feosol) 325 mg PO DAILY [facility] Last Admin: 07/12/17 09:20 Dose: 325 mg Hydrochlorothiazide (Hydrodiuril) 25 mg PO DAILY [facility] Last Admin: 07/12/17 09:20 Dose: 25 mg Hydromorphone HCl (Dilaudid) 0.5 mg IVP Q6H PRN PRN Reason: Pain, severe (8-10) Last Admin: 07/12/17 17:15 Dose: 0.5 mg Piperacillin Sod/Tazobactam Sod (Zosyn 2.25 Gm Iv Premix) 2.25 gm in 50 mls @ 100 mls/hr IVPB Q6H [facility] Last Admin: 07/13/17 02:50 Dose: 100 mls/hr Metronidazole (Flagyl) 500 mg in 100 mls @ 100 mls/hr IVPB Q8 [facility] Last Admin: 07/13/17 05:07 Dose: 100 mls/hr Aztreonam 1 gm/ Sodium (Chloride) 100 mls @ 100 mls/hr IVPB Q8H [facility] Last Admin: 07/13/17 03:39 Dose: 100 mls/hr Insulin Human Regular (Novolin R) 0 unit SC ACHS [facility] PRN Reason: Protocol Last Admin: 07/13/17 08:00 Dose: Not Given Lactulose (Enulose) 20 gm PO HS [facility] Last Admin: 07/12/17 21:55 Dose: 20 gm - Labs Labs: 07/13/17 07:32 07/13/17 07:32 PT 13.6 SECONDS (9.7-12.2) H 07/12/17 08:42 INR 1.2 07/12/17 08:42 - Constitutional Appears: Non-toxic, No Acute Distress, Other (obese) - Eye Exam Eye Exam: EOMI, PERRL - ENT Exam ENT Exam: Mucous Membranes Dry - Respiratory Exam Respiratory Exam: Decreased Breath Sounds. absent: Rales, Rhonchi, Wheezes - Cardiovascular Exam Cardiovascular Exam: RRR, +S1, +S2 - GI/Abdominal Exam GI & Abdominal Exam: Soft, Tenderness, Normal Bowel Sounds. absent: Distended, Firm, Guarding, Rigid, Organomegaly - Extremities Exam Extremities Exam: Normal Inspection. absent: Pedal Edema - Neurological Exam Neurological Exam: Alert, Awake, Oriented x3 - Psychiatric Exam Psychiatric exam: Normal Affect, Normal Mood - Skin Skin Exam: Dry, Warm Assessment and Plan - Assessment and Plan (Free Text) Assessment: Patient is a 72yo male with PMHx significant for HTN, DM, CKD, gout who presented with abdominal pain, nausea and vomiting. -RLQ fluid collection - favor diagnosis of complicated diverticulitis with abscess formation -Abdominal pain 2/2 above -MERLY on CKD -Diverticulosis Plan: -Blood cultures + in 2/2 for Corynebacterium; repeat ordered -S/P IR drainage of fluid collection -Continued on broad spectrum ABX with Aztreonam/Flagyl/Zosyn -Consider surgical evaluation given suspicion for suspected complicated diverticulitis with abscess formation -Will add pantoprazole 40mg PO QAMAC for dyspeptic symptoms -ID following -Will require colonoscpy 6-8 weeks from resolution of acute issues <Louis Oconnor - Last Filed: 07/13/17 14:52> Objective - Vital Signs/Intake and Output Vital Signs (last 24 hours): Temp Pulse Resp BP Pulse Ox 98.1 F 88 20 158/78 H 97 07/13/17 09:22 18 11:58 07/13/17 09:22 07/13/17 09:22 07/13/17 11:58 Intake and Output: 07/13/17 07/13/17 06:59 18:59 Intake Total 990 710 Balance 990 710 - Medications Medications: Current Medications Allopurinol (Zyloprim) 300 mg PO DAILY [facility] Last Admin: 07/13/17 09:27 Dose: 300 mg Amlodipine Besylate (Norvasc) 10 mg PO DAILY [facility] Last Admin: 07/13/17 09:27 Dose: 10 mg Docusate Sodium (Colace) 100 mg PO DAILY [facility] Last Admin: 07/13/17 09:27 Dose: 100 mg Ferrous Sulfate (Feosol) 325 mg PO DAILY [facility] Last Admin: 07/13/17 09:27 Dose: 325 mg Hydrochlorothiazide (Hydrodiuril) 25 mg PO DAILY [facility] Last Admin: 07/13/17 09:27 Dose: 25 mg Hydromorphone HCl (Dilaudid) 0.5 mg IVP Q6H PRN PRN Reason: Pain, severe (8-10) Last Admin: 07/12/17 17:15 Dose: 0.5 mg Piperacillin Sod/Tazobactam Sod (Zosyn 2.25 Gm Iv Premix) 2.25 gm in 50 mls @ 100 mls/hr IVPB Q6H [facility] Last Admin: 07/13/17 09:27 Dose: 100 mls/hr Metronidazole (Flagyl) 500 mg in 100 mls @ 100 mls/hr IVPB Q8 [facility] Last Admin: 07/13/17 14:00 Dose: 100 mls/hr Aztreonam 1 gm/ Sodium (Chloride) 100 mls @ 100 mls/hr IVPB Q8H [facility] Last Admin: 07/13/17 12:37 Dose: 100 mls/hr Insulin Human Regular (Novolin R) 0 unit SC ACHS [facility] PRN Reason: Protocol Last Admin: 07/13/17 12:30 Dose: 1 unit Lactulose (Enulose) 20 gm PO HS [facility] Last Admin: 07/12/17 21:55 Dose: 20 gm Pantoprazole Sodium (Protonix Ec Tab) 40 mg PO ACB [facility] Last Admin: 07/13/17 11:53 Dose: Not Given - Labs Labs: 07/13/17 07:32 07/13/17 07:32 PT 13.6 SECONDS (9.7-12.2) H 07/12/17 08:42 INR 1.2 07/12/17 08:42 Attending/Attestation - Attestation I have personally seen and examined this patient.: Yes I have fully participated in the care of the patient.: Yes I have reviewed all pertinent clinical information, including history, physical exam and plan: Yes Notes (Text): 07/13/17 14:50 72 year old male with h/o CKD, DM, gout admitted with RLQ fluid abscess, possible diverticulitis. 1. Intra-abdominal abscess 2. Diverticulitis Plan: -s/p aspiration/drainage, on abx, BCx positive -recommend surgical consult to eval complicated diverticulitis -outpatient colonoscopy in 6-8 weeks -continue PPI -antiemetics as needed -diet as tolerated
[2017-07-13] MEDS ORDERED: Bisacodyl 5mg EC Tab PO ONE (09:30)
[2017-07-13] MEDS: Pantoprazole 40 mg EC Tab PO SCH (11:53)
--- NOTE | 2017-07-13 13:09 | CP.PCM.PN ---
Subjective - Date & Time of Evaluation Date of Evaluation: 07/13/17 Time of Evaluation: 13:06 - Subjective Subjective: CHIEF COMPLAINTS TODAY : ABD PAIN NO N/VOMITING ON IV TOREDOL S/P ASPIRATION OF 60 CC GREENISH FLUID FROM ABD ROS. HEENT : N. Resp : No cough, wheezing ,pleuritic CP ,or hemoptysis Cardio : No anginal CP, PND, orthopnea, palpitation GI : No GI bleeding . INSPECTOR AND TESTER : No headache, vertigo, focal deficit. Musculoskel : No joint swelling , Derm : No rash Psych : Normal affect. Ext : No swelling ,calf pain PE. Pt. is alert awake in no distress. V.S As noted in the chart Head ,ear nose,throat and eyes : Normal. Neck : Supple with normal carotids. Lungs: Clear air entry. Heart : S1 & S2 normal with S4. No murmur. Abd : Soft tender with normal bowel sounds. Neuro : Moves all ext. with no localized deficit. Ext : No edema with intact pulses.Non tender calves Derm : No rashes or decubitus ulcer. LABS/RADIOLOGY: ASSESSMENT/PLAN : ON THE DOA PT WAS EVALUATED BY SURGERY, DR. ABURTO. HER OPINION WAS THE COLLECTION IN ABD WAS FROM ASCITIES AND CONT IV AB, NON SURGICAL CAN NOT FIND THE DOCUMENTATION WILL GET 2ND SURGICAL EVAL AWAITING C/S OF FLUID ASPIRANT Objective - Vital Signs/Intake and Output Vital Signs (last 24 hours): Temp Pulse Resp BP Pulse Ox 98.1 F 88 20 158/78 H 97 07/13/17 09:22 07/13/17 11:58 07/13/17 09:22 07/13/17 09:22 07/13/17 11:58 Intake and Output: 07/13/17 07/13/17 11:59 23:59 Intake Total 490 Balance 490 - Medications Medications: Current Medications Allopurinol (Zyloprim) 300 mg PO DAILY [facility] Last Admin: 07/13/17 09:27 Dose: 300 mg Amlodipine Besylate (Norvasc) 10 mg PO DAILY [facility] Last Admin: 07/13/17 09:27 Dose: 10 mg Docusate Sodium (Colace) 100 mg PO DAILY [facility] Last Admin: 07/13/17 09:27 Dose: 100 mg Ferrous Sulfate (Feosol) 325 mg PO DAILY [facility] Last Admin: 07/13/17 09:27 Dose: 325 mg Hydrochlorothiazide (Hydrodiuril) 25 mg PO DAILY [facility] Last Admin: 07/13/17 09:27 Dose: 25 mg Hydromorphone HCl (Dilaudid) 0.5 mg IVP Q6H PRN PRN Reason: Pain, severe (8-10) Last Admin: 07/12/17 17:15 Dose: 0.5 mg Piperacillin Sod/Tazobactam Sod (Zosyn 2.25 Gm Iv Premix) 2.25 gm in 50 mls @ 100 mls/hr IVPB Q6H [facility] Last Admin: 07/13/17 09:27 Dose: 100 mls/hr Metronidazole (Flagyl) 500 mg in 100 mls @ 100 mls/hr IVPB Q8 [facility] Last Admin: 07/13/17 05:07 Dose: 100 mls/hr Aztreonam 1 gm/ Sodium (Chloride) 100 mls @ 100 mls/hr IVPB Q8H [facility] Last Admin: 07/13/17 12:37 Dose: 100 mls/hr Insulin Human Regular (Novolin R) 0 unit SC ACHS [facility] PRN Reason: Protocol Last Admin: 07/13/17 12:30 Dose: 1 unit Lactulose (Enulose) 20 gm PO HS [facility] Last Admin: 07/12/17 21:55 Dose: 20 gm Pantoprazole Sodium (Protonix Ec Tab) 40 mg PO ACB [facility] Last Admin: 07/13/17 11:53 Dose: Not Given - Labs Labs: 07/13/17 07:32 07/13/17 07:32 PT 13.6 SECONDS (9.7-12.2) H 07/12/17 08:42 INR 1.2 07/12/17 08:42 Assessment and Plan (1) Ascites Status: Acute (2) Abdominal pain Status: Acute (3) Bandemia Status: Acute (4) Renal insufficiency Status: Chronic
--- NOTE | 2017-07-13 13:43 | CP.PCM.CON ---
History of Present Illness - History of Present Illness History of Present Illness: General Surgery- Dr. Yen 72M pmhx of hypertension, diabetes mellitus type 2, chronic kidney disease, history of urolithiasis and gout who is admitted for abdominal pain with nausea and vomiting. Pt reports his symptoms started on and progressively got worse making him come to the ER. During hospital stay pelvic fluid was tapped and cultured by IR. Since then pt states abd pain is significantly better. Nausea vomiting much improved and tolerating current diet. denies any fevers, chills, numbness/tingling in extremities States he travels around to individuals who are sick and prays with them CT of the abdomen and pelvis which showed fluid collection inferior and adjacent to the cecum, Abscess on loculated ascites with perihepatic and perisplenic ascites and also bilateral fluid collection pericolic gutters. It also showed some enteritis with small bowel thickening and cirrhotic liver changes. Pt reports now vomiting has stopped since being in the hospital, no diarrhea, no recent abx use. Colonoscopy 2016 with 4 polyps on right colon, no EGD. PMH: HTN, NIDDM, CKD, colonic polyps, diverticulosis PSH: colonoscopy in 2016 mutliple polyps found ALL: NKDA SHx: deneis tobacco, hx of etoh abuse, no drug Review of Systems - Review of Systems All systems: reviewed and no additional remarkable complaints except - Constitutional Constitutional: As Per HPI Past Patient History - Infectious Disease Hx of Infectious Diseases: None - Past Medical History & Family History Past Medical History?: No - Past Social History Smoking Status: Never Smoked - CARDIAC Hx Hypertension: Yes - RENAL Hx Chronic Kidney Disease: Yes - ENDOCRINE/METABOLIC Hx Endocrine Disorders: Yes Hx Diabetes Mellitus Type 2: Yes - MUSCULOSKELETAL/RHEUMATOLOGICAL Hx Arthritis: Yes - PSYCHIATRIC Hx Substance Use: No - SURGICAL HISTORY Hx Surgeries: Yes Other/Comment: gall stone and kidney stone removal. - ANESTHESIA Hx Anesthesia: Yes Hx Anesthesia Reactions: No Hx Malignant Hyperthermia: No Meds Allergies/Adverse Reactions: Allergies Allergy/AdvReac Type Severity Reaction Status Date / Time No Known Allergies Allergy Verified 07/08/17 11:42 - Medications Medications: Current Medications Allopurinol (Zyloprim) 300 mg PO DAILY [facility] Last Admin: 07/13/17 09:27 Dose: 300 mg Amlodipine Besylate (Norvasc) 10 mg PO DAILY [facility] Last Admin: 07/13/17 09:27 Dose: 10 mg Docusate Sodium (Colace) 100 mg PO DAILY [facility] Last Admin: 07/13/17 09:27 Dose: 100 mg Ferrous Sulfate (Feosol) 325 mg PO DAILY [facility] Last Admin: 07/13/17 09:27 Dose: 325 mg Hydrochlorothiazide (Hydrodiuril) 25 mg PO DAILY [facility] Last Admin: 07/13/17 09:27 Dose: 25 mg Hydromorphone HCl (Dilaudid) 0.5 mg IVP Q6H PRN PRN Reason: Pain, severe (8-10) Last Admin: 07/12/17 17:15 Dose: 0.5 mg Piperacillin Sod/Tazobactam Sod (Zosyn 2.25 Gm Iv Premix) 2.25 gm in 50 mls @ 100 mls/hr IVPB Q6H [facility] Last Admin: 07/13/17 09:27 Dose: 100 mls/hr Metronidazole (Flagyl) 500 mg in 100 mls @ 100 mls/hr IVPB Q8 [facility] Last Admin: 07/13/17 05:07 Dose: 100 mls/hr Aztreonam 1 gm/ Sodium (Chloride) 100 mls @ 100 mls/hr IVPB Q8H [facility] Last Admin: 07/13/17 12:37 Dose: 100 mls/hr Insulin Human Regular (Novolin R) 0 unit SC ACHS [facility] PRN Reason: Protocol Last Admin: 07/13/17 12:30 Dose: 1 unit Lactulose (Enulose) 20 gm PO HS [facility] Last Admin: 07/12/17 21:55 Dose: 20 gm Pantoprazole Sodium (Protonix Ec Tab) 40 mg PO ACB [facility] Last Admin: 07/13/17 11:53 Dose: Not Given Physical Exam - Constitutional Appears: Non-toxic, No Acute Distress - Head Exam Head Exam: ATRAUMATIC - Eye Exam Eye Exam: EOMI. absent: Scleral icterus - Respiratory Exam Respiratory Exam: NORMAL BREATHING PATTERN. absent: Accessory Muscle Use, Respiratory Distress - Cardiovascular Exam Cardiovascular Exam: +S1, +S2. absent: Bradycardia, Tachycardia - GI/Abdominal Exam GI & Abdominal Exam: Soft. absent: Distended, Firm, Guarding, Hernia, Rigid, Tenderness Additional comments: abd soft non-distended non-tender around RLQ where site of fluid was taken - Extremities Exam Extremities exam: Positive for: normal inspection. Negative for: calf tenderness - Neurological Exam Neurological exam: Alert, Oriented x3 Results - Vital Signs Recent Vital Signs: Last Vital Signs Temp 98.1 F 07/13/17 09:22 Pulse 88 07/13/17 11:58 Resp 20 07/13/17 09:22 BP 158/78 H 07/13/17 09:22 Pulse Ox 97 07/13/17 11:58 - Labs Result Diagrams: 07/13/17 07:32 07/13/17 07:32 Labs: Laboratory Results - last 24 hr 07/12/17 07/12/17 07/13/17 16:58 21:14 07:32 WBC 9.8 RBC 5.35 Hgb 14.4 Hct 42.4 MCV 79.2 L MCH 26.9 L MCHC 34.0 RDW 18.0 H Plt Count 195 MPV 10.0 Neut % (Auto) 71.1 Lymph % (Auto) 12.8 L [place] % (Auto) 15.5 H Eos % (Auto) 0.5 Baso % (Auto) 0.1 Neut # (Auto) 7.0 Lymph # (Auto) 1.3 [place] # (Auto) 1.5 H Eos # (Auto) 0.0 Baso # (Auto) 0.0 Sodium Potassium Chloride Carbon Dioxide Anion Gap BUN Creatinine Est GFR ( Amer) Est GFR (Non-Af Amer) POC Glucose (mg/dL) 90 119 H Random Glucose Calcium Total Bilirubin AST ALT Alkaline Phosphatase Total Protein Albumin Globulin Albumin/Globulin Ratio 07/13/17 07/13/17 07/13/17 07:32 07:36 11:04 WBC RBC Hgb Hct MCV MCH MCHC RDW Plt Count MPV Neut % (Auto) Lymph % (Auto) [place] % (Auto) Eos % (Auto) Baso % (Auto) Neut # (Auto) Lymph # (Auto) [place] # (Auto) Eos # (Auto) Baso # (Auto) Sodium 138 Potassium 3.3 L Chloride 104 Carbon Dioxide 22 Anion Gap 15 BUN 43 H Creatinine 1.4 Est GFR ( Amer) > 60 Est GFR (Non-Af Amer) 50 POC Glucose (mg/dL) 104 154 H Random Glucose 109 Calcium 9.1 Total Bilirubin 1.0 AST 28 ALT 29 Alkaline Phosphatase 114 Total Protein 6.6 Albumin 3.1 L Globulin 3.5 Albumin/Globulin Ratio 0.9 L Assessment & Plan - Assessment and Plan (Free Text) Assessment: 72M w/ pelvic fluid recently tapped by IR. Etiology possible 2/2 diverticulitis first episode leukocytosis normalized Plan: continue IV abx pain control and anti-emetic PRN c/s GI all recs appreciated conservative management at this time No surgical intervention at this time f/u scope in 6 weeks w/ GI if episode occurs again, would discuss with surgical attending about colon resection thank you for allowing us to take part in this patients care further recs per Dr. Yovana Crawford PGY1
--- NOTE | 2017-07-13 17:57 | CP.PCM.PN ---
Subjective - Date & Time of Evaluation Date of Evaluation: 07/13/17 Time of Evaluation: 17:57 - Subjective Subjective: CHIEF COMPLAINTS TODAY : AFEBRILE C/O ABDOMINAL PAIN. VOMITED BILIOUS DRAINAGE. seen by surgery DR COLLADO. HEENT : N. 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 Musculoskel : No joint swelling , Derm : No rash Psych : Normal affect. Ext : No swelling ,calf pain PE. Pt. is alert awake in no distress. V.S As noted in the chart Head ,ear nose,throat and eyes : Normal. Neck : Supple with normal carotids. Lungs: Clear air entry. Heart : S1 & S2 normal with S4. No murmur. Abd :SOFT ,TENDERNESS LLQ with normal bowel sounds. Neuro : Moves all ext. with no localized deficit. Ext : No edema with intact pulses.Non tender calves Derm : No rashes or decubitus ulcer. LABS/RADIOLOGY: FLUID ASPIRATE [id number] rods/gram-positive cocci BLOOD CULTURE 07/08/17 - corynebacterium species ? contaminant-skin saurabh CR 1.4/BUN 43 improving lfts N ASSESSMENT; blood culture positive for corynebacterium species ? contaminating skin saurabh ABDOMINAL PAIN /ETIOLOGY NOT CLEAR S/P IR ASPIRATION ABDOMINAL FLUID RIGHT LOWER QUADRANT ? DIVERTICULAR ABSCESS VS OCCULT GI MASS ASCITES/ CIRRHOSIS HTN RENAL INSUFFICIENCY. DM. GOUT /PLAN : CONTINUE IV ZOSYN 3.375MG IV Q 8HRLY. CONTINUE iv AZACTAM 1 G EVERY 8 HOURLY 07/10/17. IV fLAGYL 500 IV EVERY 8 HOURLY .07/09/17 IV HYDRATION F/U RIGHT LOWER QUADRANT ASPIRATE FLUID TO ADJUST ABX PER GI /AND SURGERY Objective - Vital Signs/Intake and Output Vital Signs (last 24 hours): Temp Pulse Resp BP Pulse Ox 98.1 F 86 20 141/90 96 07/13/17 15:00 07/13/17 15:00 07/13/17 15:00 07/13/17 15:00 07/13/17 15:00 Intake and Output: 07/13/17 07/13/17 06:59 18:59 Intake Total 990 710 Output Total 75 Balance 990 635 - Medications Medications: Current Medications Allopurinol (Zyloprim) 300 mg PO DAILY [facility] Last Admin: 07/13/17 09:27 Dose: 300 mg Amlodipine Besylate (Norvasc) 10 mg PO DAILY [facility] Last Admin: 07/13/17 09:27 Dose: 10 mg Docusate Sodium (Colace) 100 mg PO DAILY [facility] Last Admin: 07/13/17 09:27 Dose: 100 mg Ferrous Sulfate (Feosol) 325 mg PO DAILY [facility] Last Admin: 07/13/17 09:27 Dose: 325 mg Hydrochlorothiazide (Hydrodiuril) 25 mg PO DAILY [facility] Last Admin: 07/13/17 09:27 Dose: 25 mg Hydromorphone HCl (Dilaudid) 0.5 mg IVP Q6H PRN PRN Reason: Pain, severe (8-10) Last Admin: 07/12/17 17:15 Dose: 0.5 mg Piperacillin Sod/Tazobactam Sod (Zosyn 2.25 Gm Iv Premix) 2.25 gm in 50 mls @ 100 mls/hr IVPB Q6H [facility] Last Admin: 07/13/17 16:22 Dose: 100 mls/hr Metronidazole (Flagyl) 500 mg in 100 mls @ 100 mls/hr IVPB Q8 [facility] Last Admin: 07/13/17 14:00 Dose: 100 mls/hr Aztreonam 1 gm/ Sodium (Chloride) 100 mls @ 100 mls/hr IVPB Q8H [facility] Last Admin: 07/13/17 12:37 Dose: 100 mls/hr Insulin Human Regular (Novolin R) 0 unit SC ACHS [facility] PRN Reason: Protocol Last Admin: 07/13/17 16:36 Dose: Not Given Lactulose (Enulose) 20 gm PO HS [facility] Last Admin: 07/12/17 21:55 Dose: 20 gm Pantoprazole Sodium (Protonix Ec Tab) 40 mg PO ACB [facility] Last Admin: 07/13/17 11:53 Dose: Not Given - Labs Labs: 07/13/17 07:32 07/13/17 07:32 PT 13.6 SECONDS (9.7-12.2) H 07/12/17 08:42 INR 1.2 07/12/17 08:42 Assessment and Plan (1) Abdominal pain Status: Acute (2) Ascites Status: Acute (3) Bandemia Status: Acute (4) Renal insufficiency Status: Chronic (5) Diabetes mellitus Status: Acute (6) Hypertension Status: Acute
[2017-07-14] MEDS: Piperacill/Tazo 2.25gm in Dex 2.25 GM/50 ML BAG IVPB SCH ×2 (03:03→10:40)
[2017-07-14] MEDS: Aztreonam 1 GM in Sodium Chloride 0.9% 100 ML IVPB SCH ×2 (03:57→12:19)
[2017-07-14] MEDS: metroNIDAZOLE IV 500 mg/100 ml 500 MG/100 ML BAG IVPB SCH ×3 (05:08→21:24)
--- NOTE | 2017-07-14 06:29 | CP.PCM.PN ---
<Nithin Weathers - Last Filed: 07/14/17 13:52> Subjective - Date & Time of Evaluation Date of Evaluation: 07/14/17 Time of Evaluation: 06:25 - Subjective Subjective: PGY5 GI Fellow Progress Note Patient seen and examined bedside this morning. The patient states that he is feeling better and has had improved abdominal discomfort and less nausea in the last 24 hours. Tolerating diet without issue. No events overnight. 12 system ROS performed and negative except where stated. Objective - Vital Signs/Intake and Output Vital Signs (last 24 hours): Temp Pulse Resp BP Pulse Ox 97.6 F 71 20 125/87 97 07/14/17 00:00 07/14/17 00:00 07/14/17 00:00 07/14/17 00:00 07/14/17 00:00 Intake and Output: 07/13/17 07/14/17 18:59 06:59 Intake Total 710 Output Total 75 Balance 635 - Medications Medications: Current Medications Allopurinol (Zyloprim) 300 mg PO DAILY [facility] Last Admin: 07/13/17 09:27 Dose: 300 mg Amlodipine Besylate (Norvasc) 10 mg PO DAILY [facility] Last Admin: 07/13/17 09:27 Dose: 10 mg Docusate Sodium (Colace) 100 mg PO DAILY [facility] Last Admin: 07/13/17 09:27 Dose: 100 mg Ferrous Sulfate (Feosol) 325 mg PO DAILY [facility] Last Admin: 07/13/17 09:27 Dose: 325 mg Hydrochlorothiazide (Hydrodiuril) 25 mg PO DAILY [facility] Last Admin: 07/13/17 09:27 Dose: 25 mg Hydromorphone HCl (Dilaudid) 0.5 mg IVP Q6H PRN PRN Reason: Pain, severe (8-10) Last Admin: 07/12/17 17:15 Dose: 0.5 mg Piperacillin Sod/Tazobactam Sod (Zosyn 2.25 Gm Iv Premix) 2.25 gm in 50 mls @ 100 mls/hr IVPB Q6H [facility] Last Admin: 07/14/17 03:03 Dose: 100 mls/hr Metronidazole (Flagyl) 500 mg in 100 mls @ 100 mls/hr IVPB Q8 [facility] Last Admin: 07/14/17 05:08 Dose: 100 mls/hr Aztreonam 1 gm/ Sodium (Chloride) 100 mls @ 100 mls/hr IVPB Q8H [facility] Last Admin: 07/14/17 03:57 Dose: 100 mls/hr Insulin Human Regular (Novolin R) 0 unit SC ACHS [facility] PRN Reason: Protocol Last Admin: 07/13/17 21:36 Dose: Not Given Lactulose (Enulose) 20 gm PO HS [facility] Last Admin: 07/13/17 21:33 Dose: 20 gm Pantoprazole Sodium (Protonix Ec Tab) 40 mg PO ACB [facility] Last Admin: 07/13/17 11:53 Dose: Not Given - Labs Labs: 07/13/17 07:32 07/13/17 07:32 PT 13.6 SECONDS (9.7-12.2) H 07/12/17 08:42 INR 1.2 07/12/17 08:42 - Constitutional Appears: Non-toxic, No Acute Distress, Other (obese) - Eye Exam Eye Exam: EOMI, PERRL - ENT Exam ENT Exam: Mucous Membranes Dry - Respiratory Exam Respiratory Exam: Decreased Breath Sounds. absent: Rales, Rhonchi, Wheezes - Cardiovascular Exam Cardiovascular Exam: RRR, +S1, +S2 - GI/Abdominal Exam GI & Abdominal Exam: Soft, Normal Bowel Sounds. absent: Distended, Firm, Guarding, Rigid, Tenderness, Organomegaly - Extremities Exam Extremities Exam: Normal Inspection. absent: Pedal Edema - Neurological Exam Neurological Exam: Alert, Awake, Oriented x3 - Psychiatric Exam Psychiatric exam: Normal Affect, Normal Mood - Skin Skin Exam: Dry, Warm Assessment and Plan - Assessment and Plan (Free Text) Assessment: Patient is a 72yo male with PMHx significant for HTN, DM, CKD, gout who presented with abdominal pain, nausea and vomiting. -RLQ fluid collection/abscess - favor diagnosis of complicated diverticulitis with abscess formation -Abdominal pain 2/2 above -MERLY on CKD, improved -Diverticulosis Plan: -Blood cultures + in 2/2 for Corynebacterium; repeat ordered -Intra-abdominal fluid collection aspiration + for heavy growth of GPCs and GNRs , awaiting ID and sensitivity -ABX with Aztreonam/Flagyl/Zosyn per ID -Appreciate surgical evaluation - no plan for intervention at this time -Pantoprazole 40mg PO QAMAC for dyspepsia -Will require colonoscopy 6-8 weeks from resolution of acute issues <Kalen Chung - Last Filed: 07/14/17 15:29> Objective - Vital Signs/Intake and Output Vital Signs (last 24 hours): Temp Pulse Resp BP Pulse Ox 98.2 F 72 20 111/79 97 07/14/17 08:30 07/14/17 08:30 07/14/17 08:30 07/14/17 08:30 07/14/17 08:30 Intake and Output: 07/14/17 07/14/17 06:59 18:59 Intake Total 490 930 Balance 490 930 - Medications Medications: Current Medications Allopurinol (Zyloprim) 300 mg PO DAILY [facility] Last Admin: 07/14/17 10:40 Dose: 300 mg Amlodipine Besylate (Norvasc) 10 mg PO DAILY [facility] Last Admin: 07/14/17 10:40 Dose: 10 mg Brimonidine Tartrate (Alphagan 0.2% Opht) 0 ml OU TID [facility] Docusate Sodium (Colace) 100 mg PO DAILY [facility] Last Admin: 07/14/17 10:40 Dose: 100 mg Dorzolamide HCl (Trusopt) 0 ml OU TID [facility] Ferrous Sulfate (Feosol) 325 mg PO DAILY [facility] Last Admin: 07/14/17 10:40 Dose: 325 mg Hydrochlorothiazide (Hydrodiuril) 25 mg PO DAILY [facility] Last Admin: 07/14/17 10:40 Dose: 25 mg Hydromorphone HCl (Dilaudid) 0.5 mg IVP Q6H PRN PRN Reason: Pain, severe (8-10) Last Admin: 07/14/17 11:05 Dose: 0.5 mg Piperacillin Sod/Tazobactam Sod (Zosyn 2.25 Gm Iv Premix) 2.25 gm in 50 mls @ 100 mls/hr IVPB Q6H [facility] Last Admin: 07/14/17 10:40 Dose: 100 mls/hr Metronidazole (Flagyl) 500 mg in 100 mls @ 100 mls/hr IVPB Q8 [facility] Last Admin: 07/14/17 14:25 Dose: 100 mls/hr Meropenem 1 gm/ Sodium (Chloride) 100 mls @ 100 mls/hr IVPB Q8H [facility] Linezolid (Zyvox 600mg/300ml D5w) 600 mg in 300 mls @ 200 mls/hr IVPB Q12 [facility] Insulin Human Regular (Novolin R) 0 unit SC ACHS [facility] PRN Reason: Protocol Last Admin: 07/14/17 11:30 Dose: Not Given Lactulose (Enulose) 20 gm PO HS [facility] Last Admin: 07/13/17 21:33 Dose: 20 gm Latanoprost (Xalatan Opht) 0 ml OU HS [facility] Pantoprazole Sodium (Protonix Ec Tab) 40 mg PO ACB [facility] Last Admin: 07/14/17 08:30 Dose: 40 mg - Labs Labs: 07/14/17 08:11 07/14/17 08:11 PT 13.6 SECONDS (9.7-12.2) H 07/12/17 08:42 INR 1.2 07/12/17 08:42 Attending/Attestation - Attestation I have personally seen and examined this patient.: Yes I have fully participated in the care of the patient.: Yes I have reviewed all pertinent clinical information, including history, physical exam and plan: Yes Notes (Text): 07/14/17 15:21 I have seen and examined patient with GI fellow. No acute events overnight, he is seen sitting in chair resting comfortably. His abdominal pain has improved and he denies nausea, vomiting, fever/chills. Tolerating PO diet without difficulty. Review of vitals from today are normal. HTN / DM CKD Abdominal pain - acute diverticulitis complicated by maida-colonic fluid/ collection abscess s/p IR guided drainage Bacteremia - Diet as tolerated - Continue with antibiotic therapy, fluid cultures positive for VRE, linezolid started. Follow up ID recommendations - Suggest outpatient elective colonoscopy following resolution of acute symptoms. Office contact information provided to patient. No further planned GI intervention, will sign off case. Please reconsult as necessary, case discussed with Dr. Jones.
[2017-07-14 08:27] LABS: BASO % 0.3 % (0.0-2.0); EOS # 0.1 K/uL (0.0-0.7); EOS % 1.1 % (0.0-4.0); HEMOGLOBIN 13.3 g/dL (12.0-18.0); LYMPH # 1.5 K/uL (1.0-4.3); LYMPH % 11.8 % (20.0-40.0); MEAN CELL VOLUME 79.5 fL (80.0-94.0); MEAN CORPUSCULAR HEMOGLOBIN 26.2 pg (27.0-31.0); MEAN CORPUSCULAR HGB CONC 32.9 g/dL (33.0-37.0); MEAN PLATELET VOLUME 9.7 fL (7.2-11.7); MONO # 1.6 K/uL (0.0-0.8); MONO % 12.2 % (0.0-10.0); NEUT # 9.7 K/uL (1.8-7.0); NEUT % 74.6 % (50.0-75.0); NRBC % 0.2 % (0.0-2.0); RBC 5.09 Mil/uL (4.40-5.90); RED CELL DISTRIBUTION WIDTH 18.3 % (11.5-14.5)
[2017-07-14] MEDS: (Novolin R) Insulin Human Regular 100 units/ml vial SC SCH ×4 (08:29→22:31)
[2017-07-14] MEDS: Pantoprazole 40 mg EC Tab PO SCH (08:30)
[2017-07-14 08:46] LABS: ALB/GLOB RATIO 0.8 (1.0-2.1); ALBUMIN 2.9 g/dL (3.5-5.0); ALT/SGPT 33 U/L (21-72); AST/SGOT 37 U/L (17-59); BLOOD UREA NITROGEN 34 mg/dL (9-20); CALCIUM 8.8 mg/dl (8.6-10.4); GFR AFRICAN-AMERICAN > 60; GFR NON-AFRICAN AMERICAN 54
[2017-07-14] MEDS: HYDROmorphone 0.5 mg/0.5 ml ISec IVP PRN (11:05)
--- NOTE | 2017-07-14 12:13 | CP.PCM.PN ---
Subjective - Date & Time of Evaluation Date of Evaluation: 07/14/17 Time of Evaluation: 06:55 - Subjective Subjective: General Surgery- Dr. Yen Patient seen and examined at bedside this AM. states some continued nausea, however no vomiting on CLD. States abdominal pain is significantly better. + Flautus. Denies F/C/CP/SOB/D Objective - Vital Signs/Intake and Output Vital Signs (last 24 hours): Temp Pulse Resp BP Pulse Ox 98.2 F 72 20 111/79 97 07/14/17 08:30 07/14/17 08:30 07/14/17 08:30 07/14/17 08:30 07/14/17 08:30 Intake and Output: 07/14/17 07/14/17 06:59 18:59 Intake Total 490 Balance 490 - Medications Medications: Current Medications Allopurinol (Zyloprim) 300 mg PO DAILY [facility] Last Admin: 07/14/17 10:40 Dose: 300 mg Amlodipine Besylate (Norvasc) 10 mg PO DAILY [facility] Last Admin: 07/14/17 10:40 Dose: 10 mg Docusate Sodium (Colace) 100 mg PO DAILY [facility] Last Admin: 07/14/17 10:40 Dose: 100 mg Ferrous Sulfate (Feosol) 325 mg PO DAILY [facility] Last Admin: 07/14/17 10:40 Dose: 325 mg Hydrochlorothiazide (Hydrodiuril) 25 mg PO DAILY [facility] Last Admin: 07/14/17 10:40 Dose: 25 mg Hydromorphone HCl (Dilaudid) 0.5 mg IVP Q6H PRN PRN Reason: Pain, severe (8-10) Last Admin: 07/14/17 11:05 Dose: 0.5 mg Piperacillin Sod/Tazobactam Sod (Zosyn 2.25 Gm Iv Premix) 2.25 gm in 50 mls @ 100 mls/hr IVPB Q6H [facility] Last Admin: 07/14/17 10:40 Dose: 100 mls/hr Metronidazole (Flagyl) 500 mg in 100 mls @ 100 mls/hr IVPB Q8 [facility] Last Admin: 07/14/17 05:08 Dose: 100 mls/hr Aztreonam 1 gm/ Sodium (Chloride) 100 mls @ 100 mls/hr IVPB Q8H [facility] Last Admin: 07/14/17 03:57 Dose: 100 mls/hr Potassium Chloride (Potassium Chloride 20 Meq/100 Ml) 20 meq in 100 mls @ 50 mls/hr IVPB Q2H [facility] Stop: 07/14/17 13:44 Last Admin: 07/14/17 10:37 Dose: 50 mls/hr Insulin Human Regular (Novolin R) 0 unit SC ACHS [facility] PRN Reason: Protocol Last Admin: 07/14/17 08:29 Dose: Not Given Lactulose (Enulose) 20 gm PO HS [facility] Last Admin: 07/13/17 21:33 Dose: 20 gm Pantoprazole Sodium (Protonix Ec Tab) 40 mg PO ACB [facility] Last Admin: 07/14/17 08:30 Dose: 40 mg - Labs Labs: 07/14/17 08:11 07/14/17 08:11 PT 13.6 SECONDS (9.7-12.2) H 07/12/17 08:42 INR 1.2 07/12/17 08:42 - Constitutional Appears: Non-toxic, No Acute Distress - Eye Exam Eye Exam: EOMI. absent: Scleral icterus - ENT Exam ENT Exam: Mucous Membranes Moist - Respiratory Exam Respiratory Exam: NORMAL BREATHING PATTERN. absent: Accessory Muscle Use, Respiratory Distress - Cardiovascular Exam Cardiovascular Exam: +S1, +S2. absent: Bradycardia, Tachycardia - GI/Abdominal Exam GI & Abdominal Exam: Soft. absent: Distended, Firm, Guarding, Rigid, Tenderness Additional comments: puncture site s/p IR drainage c/d/i - Neurological Exam Neurological Exam: Alert, Awake, Oriented x3 - Psychiatric Exam Psychiatric exam: Normal Affect - Skin Skin Exam: Intact, Warm Assessment and Plan - Assessment and Plan (Free Text) Assessment: 72M bacteremia RLQ fluid collection/abscess s/p IR drainage of pelvic fluid and cx. e with PMHx significant for HTN, DM, CKD, gout who presented with abdominal pain, nausea and vomiting. -RLQ fluid collection/abscess - favor diagnosis of complicated diverticulitis with abscess formation -Abdominal pain 2/2 above -MERLY on CKD, improved -Diverticulosis Plan: -Blood cultures + in 2/2 for Corynebacterium; repeat ordered -Intra-abdominal fluid collection aspiration + for heavy growth of GPCs and GNRs , awaiting ID and sensitivity -ABX with Aztreonam/Flagyl/Zosyn per ID -Appreciate surgical evaluation - no plan for intervention at this time -Pantoprazole 40mg PO QAMAC for dyspepsia -Will require colonoscopy 6-8 weeks from resolution of acute issues
--- NOTE | 2017-07-14 13:16 | CP.PCM.PN ---
Subjective - Date & Time of Evaluation Date of Evaluation: 07/14/17 Time of Evaluation: 13:15 - Subjective Subjective: CHIEF COMPLAINTS TODAY : ABD PAIN NO N/VOMITING ON IV TOREDOL S/P ASPIRATION OF 60 CC GREENISH FLUID FROM ABD ROS. HEENT : N. 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 Musculoskel : No joint swelling , Derm : No rash Psych : Normal affect. Ext : No swelling ,calf pain PE. Pt. is alert awake in no distress. V.S As noted in the chart Head ,ear nose,throat and eyes : Normal. Neck : Supple with normal carotids. Lungs: Clear air entry. Heart : S1 & S2 normal with S4. No murmur. Abd : Soft tender with normal bowel sounds. Neuro : Moves all ext. with no localized deficit. Ext : No edema with intact pulses.Non tender calves Derm : No rashes or decubitus ulcer. LABS/RADIOLOGY: C/S OF ASPIRANT VRE ASSESSMENT/PLAN : CHANGE IV AB Objective - Vital Signs/Intake and Output Vital Signs (last 24 hours): Temp Pulse Resp BP Pulse Ox 98.2 F 72 20 111/79 97 07/14/17 08:30 07/14/17 08:30 07/14/17 08:30 07/14/17 08:30 07/14/17 08:30 Intake and Output: 07/14/17 07/14/17 11:59 23:59 Intake Total 490 Balance 490 - Medications Medications: Current Medications Allopurinol (Zyloprim) 300 mg PO DAILY [facility] Last Admin: 07/14/17 10:40 Dose: 300 mg Amlodipine Besylate (Norvasc) 10 mg PO DAILY [facility] Last Admin: 07/14/17 10:40 Dose: 10 mg Docusate Sodium (Colace) 100 mg PO DAILY [facility] Last Admin: 07/14/17 10:40 Dose: 100 mg Ferrous Sulfate (Feosol) 325 mg PO DAILY [facility] Last Admin: 07/14/17 10:40 Dose: 325 mg Hydrochlorothiazide (Hydrodiuril) 25 mg PO DAILY [facility] Last Admin: 07/14/17 10:40 Dose: 25 mg Hydromorphone HCl (Dilaudid) 0.5 mg IVP Q6H PRN PRN Reason: Pain, severe (8-10) Last Admin: 07/14/17 11:05 Dose: 0.5 mg Piperacillin Sod/Tazobactam Sod (Zosyn 2.25 Gm Iv Premix) 2.25 gm in 50 mls @ 100 mls/hr IVPB Q6H [facility] Last Admin: 07/14/17 10:40 Dose: 100 mls/hr Metronidazole (Flagyl) 500 mg in 100 mls @ 100 mls/hr IVPB Q8 [facility] Last Admin: 07/14/17 05:08 Dose: 100 mls/hr Aztreonam 1 gm/ Sodium (Chloride) 100 mls @ 100 mls/hr IVPB Q8H [facility] Last Admin: 07/14/17 12:19 Dose: 100 mls/hr Potassium Chloride (Potassium Chloride 20 Meq/100 Ml) 20 meq in 100 mls @ 50 mls/hr IVPB Q2H [facility] Stop: 07/14/17 13:44 Last Admin: 07/14/17 12:19 Dose: 50 mls/hr Insulin Human Regular (Novolin R) 0 unit SC ACHS [facility] PRN Reason: Protocol Last Admin: 07/14/17 11:30 Dose: Not Given Lactulose (Enulose) 20 gm PO HS [facility] Last Admin: 07/13/17 21:33 Dose: 20 gm Pantoprazole Sodium (Protonix Ec Tab) 40 mg PO ACB [facility] Last Admin: 07/14/17 08:30 Dose: 40 mg - Labs Labs: 07/14/17 08:11 07/14/17 08:11 PT 13.6 SECONDS (9.7-12.2) H 07/12/17 08:42 INR 1.2 07/12/17 08:42 Assessment and Plan (1) Ascites Status: Acute (2) Abdominal pain Status: Acute (3) Bandemia Status: Acute (4) Renal insufficiency Status: Chronic
[2017-07-14] MEDS: Brimonidine 0.2% Opth Sol (5ml) OU SCH (18:33)
[2017-07-14] MEDS: Dorzolamide 2% Opht Sol 10ml OU SCH (18:33)
[2017-07-14] MEDS: Meropenem 1 GM in Sodium Chloride 0.9% 100 ML IVPB SCH ×2 (18:39→23:18)
--- NOTE | 2017-07-14 21:01 | CP.PCM.PN ---
Subjective - Date & Time of Evaluation Date of Evaluation: 07/14/17 Time of Evaluation: 21:01 - Subjective Subjective: CHIEF COMPLAINTS TODAY : afebrile less abdominal discomfort. no nausea or vomiting. ROS. HEENT : N. 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 Musculoskel : No joint swelling , Derm : No rash Psych : Normal affect. Ext : No swelling ,calf pain PE. Pt. is alert awake in no distress. V.S As noted in the chart Head ,ear nose,throat and eyes : Normal. Neck : Supple with normal carotids. Lungs: Clear air entry. Heart : S1 & S2 normal with S4. No murmur. Abd :SOFT , less TENDERNESS lower quadrants with normal bowel sounds. Neuro : Moves all ext. with no localized deficit. Ext : No edema with intact pulses.Non tender calves Derm : No rashes or decubitus ulcer. LABS/RADIOLOGY: FLUID ASPIRATE ABDOMEN-E.COLI- S- mERREM/CEFEPIME. -VRE. -S LINEZOLID, TIGECYCLINE. BLOOD CULTURE 07/08/17 - corynebacterium species ? contaminant-skin saurabh CR 1.3/BUN 34pERTINENT improving WBC 13.0. lfts N ASSESSMENT; ABDOMINAL PAIN / S/P IR ASPIRATION ? DIVERTICULAR ABSCESS +VE VRE/E.COLI ASCITES/ CIRRHOSIS HTN RENAL INSUFFICIENCY. DM. GOUT PLAN : START iv MERREM 1 G EVERY 8 HOURLY START iv ZYVOX 600 MG EVERY 12 HOURLY. 07/14/17 CONTINUE IV fLAGYL 500 IV EVERY 8 HOURLY .07/09/17 PATIENT WILL NEED A picc LINE. PATIENT WILL NEED 3 WEEKS OF iv ANTIBIOTICS DC IV ZOSYN 3.375MG IV Q 8HRLY. DC iv AZACTAM 1 G EVERY 8 HOURLY 07/10/17. PER SURGERY- NO SURGICAL INTERVENTION FOR NOW.. Objective - Vital Signs/Intake and Output Vital Signs (last 24 hours): Temp Pulse Resp BP Pulse Ox 98.2 F 72 20 111/79 97 07/14/17 08:30 07/14/17 08:30 07/14/17 08:30 07/14/17 08:30 07/14/17 08:30 Intake and Output: 07/14/17 07/15/17 18:59 06:59 Intake Total 930 Balance 930 - Medications Medications: Current Medications Allopurinol (Zyloprim) 300 mg PO DAILY [facility] Last Admin: 07/14/17 10:40 Dose: 300 mg Amlodipine Besylate (Norvasc) 10 mg PO DAILY [facility] Last Admin: 07/14/17 10:40 Dose: 10 mg Brimonidine Tartrate (Alphagan 0.2% Opht) 0 ml OU TID [facility] Last Admin: 07/14/17 18:33 Dose: 1 drop Docusate Sodium (Colace) 100 mg PO DAILY [facility] Last Admin: 07/14/17 10:40 Dose: 100 mg Dorzolamide HCl (Trusopt) 0 ml OU TID [facility] Last Admin: 07/14/17 18:33 Dose: 1 drop Ferrous Sulfate (Feosol) 325 mg PO DAILY [facility] Last Admin: 07/14/17 10:40 Dose: 325 mg Hydrochlorothiazide (Hydrodiuril) 25 mg PO DAILY [facility] Last Admin: 07/14/17 10:40 Dose: 25 mg Hydromorphone HCl (Dilaudid) 0.5 mg IVP Q6H PRN PRN Reason: Pain, severe (8-10) Last Admin: 07/14/17 11:05 Dose: 0.5 mg Metronidazole (Flagyl) 500 mg in 100 mls @ 100 mls/hr IVPB Q8 [facility] Last Admin: 07/14/17 14:25 Dose: 100 mls/hr Meropenem 1 gm/ Sodium (Chloride) 100 mls @ 100 mls/hr IVPB Q8H [facility] Last Admin: 07/14/17 18:39 Dose: 100 mls/hr Linezolid (Zyvox 600mg/300ml D5w) 600 mg in 300 mls @ 200 mls/hr IVPB Q12 [facility] Insulin Human Regular (Novolin R) 0 unit SC ACHS [facility] PRN Reason: Protocol Last Admin: 07/14/17 16:55 Dose: Not Given Lactulose (Enulose) 20 gm PO HS [facility] Last Admin: 07/13/17 21:33 Dose: 20 gm Latanoprost (Xalatan Opht) 0 ml OU HS [facility] Pantoprazole Sodium (Protonix Ec Tab) 40 mg PO ACB [facility] Last Admin: 07/14/17 08:30 Dose: 40 mg - Labs Labs: 07/14/17 08:11 07/14/17 08:11 PT 13.6 SECONDS (9.7-12.2) H 07/12/17 08:42 INR 1.2 07/12/17 08:42 Assessment and Plan (1) Abdominal pain Status: Acute (2) Ascites Status: Acute (3) Bandemia Status: Acute (4) Renal insufficiency Status: Chronic (5) Diabetes mellitus Status: Acute (6) Hypertension Status: Acute
[2017-07-14] MEDS: Latanoprost 2.5 ml Opht Soln OU SCH (21:24)
[2017-07-14] MEDS: Linezolid 600 mg in D5W 300 ml 600 MG/300 ML BAG IVPB SCH (21:24)
[2017-07-15] MEDS: metroNIDAZOLE IV 500 mg/100 ml 500 MG/100 ML BAG IVPB SCH ×3 (05:22→21:28)
[2017-07-15] MEDS: Meropenem 1 GM in Sodium Chloride 0.9% 100 ML IVPB SCH ×3 (06:18→22:00)
[2017-07-15 07:44] LABS: BASO % 0.3 % (0.0-2.0); EOS # 0.2 K/uL (0.0-0.7); EOS % 1.3 % (0.0-4.0); HEMOGLOBIN 13.2 g/dL (12.0-18.0); LYMPH # 1.3 K/uL (1.0-4.3); LYMPH % 9.9 % (20.0-40.0); MEAN CELL VOLUME 79.5 fL (80.0-94.0); MEAN CORPUSCULAR HEMOGLOBIN 26.5 pg (27.0-31.0); MEAN CORPUSCULAR HGB CONC 33.3 g/dL (33.0-37.0); MEAN PLATELET VOLUME 9.7 fL (7.2-11.7); MONO # 1.2 K/uL (0.0-0.8); NEUT # 10.9 K/uL (1.8-7.0); NEUT % 79.5 % (50.0-75.0); NRBC % 0.1 % (0.0-2.0); PLATELET COUNT 235 K/uL (130-400); RBC 4.99 Mil/uL (4.40-5.90); RED CELL DISTRIBUTION WIDTH 18.5 % (11.5-14.5); WHITE BLOOD COUNT 13.7 K/uL (4.8-10.8)
[2017-07-15 07:54] LABS: ALB/GLOB RATIO 0.8 (1.0-2.1); ALBUMIN 2.8 g/dL (3.5-5.0); ALT/SGPT 26 U/L (21-72); AST/SGOT 58 U/L (17-59); BLOOD UREA NITROGEN 32 mg/dL (9-20); CALCIUM 8.8 mg/dl (8.6-10.4); GFR AFRICAN-AMERICAN > 60; GFR NON-AFRICAN AMERICAN 60
[2017-07-15] MEDS: (Novolin R) Insulin Human Regular 100 units/ml vial SC SCH ×4 (07:56→21:32)
[2017-07-15] MEDS: Pantoprazole 40 mg EC Tab PO SCH (08:02)
[2017-07-15] MEDS: Dorzolamide 2% Opht Sol 10ml OU SCH ×3 (09:48→17:40)
[2017-07-15] MEDS: Linezolid 600 mg in D5W 300 ml 600 MG/300 ML BAG IVPB SCH ×2 (09:52→21:30)
[2017-07-15] MEDS: Brimonidine 0.2% Opth Sol (5ml) OU SCH ×3 (09:56→17:39)
[2017-07-15 10:41] LABS: BANDS 1 % (0-2); EOSINOPHIL 3 % (0-4); LYMPHOCYTE 15 % (20-40); MONOCYTE 8 % (0-10); NEUTROPHIL 73 % (50-75); TOTAL CELLS COUNTED 100
[2017-07-15 10:42] LABS: ANISOCYTOSIS SLIGHT; PLATELET ESTIMATE NORMAL (NORMAL)
[2017-07-15 10:43] LABS: HYPOCHROMIC SLIGHT; MICROCYTOSIS SLIGHT; POLYCHROMIC SLIGHT
[2017-07-15 10:44] LABS: TARGET CELLS SLIGHT
--- NOTE | 2017-07-15 11:10 | RAD ---
HISTORY: verify right PICC COMPARISON: Chest radiograph dated 11/15/2015. FINDINGS: LUNGS: Low lung volumes. Basilar atelectasis. PLEURA: No significant pleural effusion identified, no pneumothorax apparent. CARDIOVASCULAR: Atherosclerotic aortic calcifications. Cardiomediastinal silhouette unchanged. OSSEOUS STRUCTURES: Unchanged. VISUALIZED UPPER ABDOMEN: Normal. OTHER FINDINGS: Right upper extremity PICC with catheter tip at the cavoatrial junction. IMPRESSION: Bibasilar atelectasis. Right upper extremity PICC in satisfactory position.
--- NOTE | 2017-07-15 13:33 | CP.PCM.DIS ---
Provider - Provider Date of Admission: 07/10/17 18:36 Attending physician: Fabio Jones MD Time Spent in preparation of Discharge (in minutes): 35 Diagnosis - Discharge Diagnosis (1) Ascites Status: Acute (2) Abdominal pain Status: Acute (3) Bandemia Status: Acute (4) Renal insufficiency Status: Chronic Hospital Course - Lab Results Lab Results: Micro Results 07/13/17 09:12 Blood-Venous Blood Culture - Preliminary NO GROWTH AFTER 48 HOURS 07/13/17 10:30 Blood-Venous Blood Culture - Preliminary NO GROWTH AFTER 48 HOURS 07/12/17 12:13 Abdominal Fluid Gram Stain - Final 07/12/17 12:13 Abdominal Fluid Body Fluid Culture - Final Escherichia Coli Vancomycin Resistant E.faecium 07/08/17 18:20 Blood Blood Culture - Final Corynebacterium Species 07/08/17 18:20 Blood Gram Stain - Final 07/08/17 18:50 Blood Blood Culture - Final Corynebacterium Species 07/08/17 18:50 Blood Gram Stain - Final Most Recent Lab Values WBC 13.7 K/uL (4.8-10.8) H 07/15/17 07:09 RBC 4.99 Mil/uL (4.40-5.90) 07/15/17 07:09 Hgb 13.2 g/dL (12.0-18.0) 07/15/17 07:09 Hct 39.7 % (35.0-51.0) 07/15/17 07:09 MCV 79.5 fL (80.0-94.0) L 07/15/17 07:09 MCH 26.5 pg (27.0-31.0) L 07/15/17 07:09 MCHC 33.3 g/dL (33.0-37.0) 07/15/17 07:09 RDW 18.5 % (11.5-14.5) H 07/15/17 07:09 Plt Count 235 K/uL (130-400) 07/15/17 07:09 MPV 9.7 fL (7.2-11.7) 07/15/17 07:09 Neut % (Auto) 79.5 % (50.0-75.0) H 07/15/17 07:09 Lymph % (Auto) 9.9 % (20.0-40.0) L 07/15/17 07:09 [place] % (Auto) 9.0 % (0.0-10.0) 07/15/17 07:09 Eos % (Auto) 1.3 % (0.0-4.0) 07/15/17 07:09 Baso % (Auto) 0.3 % (0.0-2.0) 07/15/17 07:09 Neut # (Auto) 10.9 K/uL (1.8-7.0) H 07/15/17 07:09 Lymph # (Auto) 1.3 K/uL (1.0-4.3) 07/15/17 07:09 [place] # (Auto) 1.2 K/uL (0.0-0.8) H 07/15/17 07:09 Eos # (Auto) 0.2 K/uL (0.0-0.7) 07/15/17 07:09 Baso # (Auto) 0.0 K/uL (0.0-0.2) 07/15/17 07:09 Neutrophils % (Manual) 73 % (50-75) 07/15/17 07:09 Band Neutrophils % 1 % (0-2) 07/15/17 07:09 Lymphocytes % (Manual) 15 % (20-40) L 07/15/17 07:09 Monocytes % (Manual) 8 % (0-10) 07/15/17 07:09 Eosinophils % (Manual) 3 % (0-4) 07/15/17 07:09 Nucleated RBC % 1 % (0-0) H 07/08/17 13:10 Toxic Granulation Present 07/09/17 06:37 Platelet Estimate Normal (NORMAL) 07/15/17 07:09 Large Platelets Present 07/09/17 06:37 Polychromasia Slight 07/15/17 07:09 Hypochromasia (manual) Slight 07/15/17 07:09 Poikilocytosis (manual Slight 07/11/17 07:15 Anisocytosis (manual) Slight 07/15/17 07:09 Microcytosis (manual) Slight 07/15/17 07:09 Target Cells Slight 07/15/17 07:09 Tear Drop Cells Slight 07/11/17 07:15 Ovalocytes Slight 07/11/17 07:15 [place] Cells Slight 07/11/17 07:15 PT 13.6 SECONDS (9.7-12.2) H 07/12/17 08:42 INR 1.2 07/12/17 08:42 Sodium 136 mmol/L (132-148) 07/15/17 07:09 Potassium 3.0 mmol/L (3.6-5.2) L 07/15/17 07:09 Chloride 103 mmol/L (98-107) 07/15/17 07:09 Carbon Dioxide 24 mmol/L (22-30) 07/15/17 07:09 Anion Gap 11 (10-20) 07/15/17 07:09 BUN 32 mg/dL (9-20) H 07/15/17 07:09 Creatinine 1.2 mg/dL (0.8-1.5) 07/15/17 07:09 Est GFR ( Amer) > 60 07/15/17 07:09 Est GFR (Non-Af Amer) 60 07/15/17 07:09 POC Glucose (mg/dL) 114 mg/dL (65-110) H 07/15/17 11:06 Random Glucose 85 mg/dL (75-110) 07/15/17 07:09 Calcium 8.8 mg/dl (8.6-10.4) 07/15/17 07:09 Total Bilirubin 0.6 mg/dL (0.2-1.3) 07/15/17 07:09 AST 58 U/L (17-59) 07/15/17 07:09 ALT 26 U/L (21-72) 07/15/17 07:09 Alkaline Phosphatase 78 U/L (38-126) 07/15/17 07:09 Total Protein 6.1 g/dL (6.3-8.3) L 07/15/17 07:09 Albumin 2.8 g/dL (3.5-5.0) L 07/15/17 07:09 Globulin 3.3 gm/dL (2.2-3.9) 07/15/17 07:09 Albumin/Globulin Ratio 0.8 (1.0-2.1) L 07/15/17 07:09 Lipase 76 U/L (23-300) 07/08/17 13:10 Urine Color R[place]ha (YELLOW) 07/08/17 14:34 Urine Clarity Hazy (Clear) 07/08/17 14:34 Urine pH 5.0 (5.0-8.0) 07/08/17 14:34 Ur Specific [place] 1.024 (1.003-1.030) 07/08/17 14:34 Urine Protein 1+ mg/dL (NEGATIVE) H 07/08/17 14:34 Urine Glucose (UA) Normal mg/dL (Normal) 07/08/17 14:34 Urine Ketones Trace mg/dL (NEGATIVE) 07/08/17 14:34 Urine Blood Negative (NEGATIVE) 07/08/17 14:34 Urine Nitrate Negative (NEGATIVE) 07/08/17 14:34 Urine Bilirubin Negative (NEGATIVE) 07/08/17 14:34 Urine Urobilinogen 4.0 mg/dL (0.2-1.0) 07/08/17 14:34 Ur Leukocyte Esterase Neg [place]/uL (Negative) 07/08/17 14:34 Urine WBC (Auto) 3 /hpf (0-5) 07/08/17 14:34 Urine RBC (Auto) 3 /hpf (0-3) 07/08/17 14:34 Ur Squamous Epith Cells 1 /hpf (0-5) 07/08/17 14:34 - Hospital Course Hospital Course: 1 DAY H/O NAUSEA AND VOMITING A/W GEN ABDOMINAL PAIN . WORK UP IN ER SHOWED BANDS OF [address] WITH FLUID COLLECTION NEAR CEACUM AND COLITIS AND ASCITIES HAS H/O UROLITHIASIS WITH RENAL INSUFFICIENCY H/O HTN FURTHER W/U SHOWED POSSIBLE PERFORATED DIVERTICULUM WITH PHLEGMON ID/GI/SUGERY CONSULTED IV AB PT IMPROVED WITH IMPROVED APPETITE PT TRANSFERRED TO [facility] FOR CONT. OF IV AB Discharge Exam - Head Exam Head Exam: ATRAUMATIC Discharge Plan - Discharge Medications Prescriptions: Metronidazole [Flagyl] 500 mg PO TID 21 Days tablet Cefepime IV 2 gm in NS [Maxipime 2gm] 2 gm IVPB Q12H 21 Days bag Pantoprazole Sodium [Protonix] 40 mg PO DAILY 30 Days ect Linezolid 600 mg in D5W 300 ml [Zyvox 600mg/300ml D5W] 600 mg IVPB Q12H 10 Days bag - Follow Up Plan Condition: FAIR Disposition: HOME/ ROUTINE Additional Instructions: zyvox 600mg iv q12h [id number] then po zyvox 600mg bidx10 days flagyl 500mg po tid x [address] Israel ID consult with DR Katherine Israel labs: CBC, CMP q week and inform the MD, PICC LINE care as protocol cefepime 2gm iv q12h x21 days via PICC line
--- NOTE | 2017-07-15 13:46 | CP.PCM.PN ---
Subjective - Date & Time of Evaluation Date of Evaluation: 07/15/17 Time of Evaluation: 13:46 - Subjective Subjective: CHIEF COMPLAINTS TODAY : afebrile less abdominal discomfort. no nausea or vomiting. ROS. HEENT : N. Resp : No cough, wheezing ,pleuritic CP ,or hemoptysis Cardio : No anginal CP, PND, orthopnea, palpitation GI : No GI bleeding NO N/OR VOMITING FLAT FINISHER : No headache, vertigo, focal deficit. Musculoskel : No joint swelling , Derm : No rash Psych : Normal affect. Ext : No swelling ,calf pain PE. Pt. is alert awake in no distress. V.S As noted in the chart Head ,ear nose,throat and eyes : Normal. Neck : Supple with normal carotids. Lungs: Clear air entry. Heart : S1 & S2 normal with S4. No murmur. Abd :SOFT , less TENDERNESS lower quadrants with normal bowel sounds. Neuro : Moves all ext. with no localized deficit. Ext : No edema with intact pulses.Non tender calves Derm : No rashes or decubitus ulcer. LABS/RADIOLOGY: FLUID ASPIRATE ABDOMEN-E.COLI- S- mERREM/CEFEPIME. -VRE. -S LINEZOLID, TIGECYCLINE. BLOOD CULTURE 07/08/17 - corynebacterium species ? contaminant-skin saurabh CR 1.3/BUN 34pERTINENT improving WBC 13.0. lfts N ASSESSMENT; ABDOMINAL PAIN / S/P IR ASPIRATION ? DIVERTICULAR ABSCESS +VE VRE/E.COLI ASCITES/ CIRRHOSIS HTN RENAL INSUFFICIENCY. DM. GOUT PLAN : PATIENT FOR SUBACUTE REHABILITATION-[facility] TODAY PATIENT TO BE DISCHARGED ON FOLLOWING MEDICATIONS . CEFEPIME 2 G EVERY 12 HOURLY X 21 DAYS 07/15/17-08/05/17' . ZYVOX 600 MG iv EVERY 12 HOURLY X 10DAYS- 07/14/17 F/U PO ZYVOX 600 TWICE A DAY X10 DAYS . CONTINUE IV fLAGYL 500 PO EVERY 12 HOURLY . X 21 DAYS. . F/U CBCWITH DIFF WEEKLY X 3 WKS. CMP, LFTS WEEKLY X 3WKS. . MONITOR FOR BONE MARROW DEPRESSION, VISUAL PROBLEMS. AND THROMBOCYTOPENIA. .CONSIDER CT OF THE ABDOMEN/PELVIS AFTER COMPLETION OF ANTIBIOTICS. . CASE DISCUSSED WITH PMD, MANAGER HVAC MS ANDREWSTitiMARIA DEL CARMEN Objective - Vital Signs/Intake and Output Vital Signs (last 24 hours): Temp Pulse Resp BP Pulse Ox 97.5 F L 88 20 167/76 H 97 07/15/17 08:00 07/15/17 08:00 07/15/17 08:00 07/15/17 08:00 07/15/17 08:00 Intake and Output: 07/15/17 07/15/17 06:59 18:59 Intake Total 1070 Balance 1070 - Medications Medications: Current Medications Allopurinol (Zyloprim) 300 mg PO DAILY [facility] Last Admin: 07/15/17 09:59 Dose: 300 mg Amlodipine Besylate (Norvasc) 10 mg PO DAILY [facility] Last Admin: 07/15/17 09:48 Dose: 10 mg Brimonidine Tartrate (Alphagan 0.2% Opht) 0 ml OU TID [facility] Last Admin: 07/15/17 09:56 Dose: 1 drop Docusate Sodium (Colace) 100 mg PO DAILY [facility] Last Admin: 07/15/17 09:48 Dose: 100 mg Dorzolamide HCl (Trusopt) 0 ml OU TID [facility] Last Admin: 07/15/17 09:48 Dose: 1 drop Ferrous Sulfate (Feosol) 325 mg PO DAILY [facility] Last Admin: 07/15/17 09:48 Dose: 325 mg Hydrochlorothiazide (Hydrodiuril) 25 mg PO DAILY [facility] Last Admin: 07/15/17 09:48 Dose: 25 mg Hydromorphone HCl (Dilaudid) 0.5 mg IVP Q6H PRN PRN Reason: Pain, severe (8-10) Last Admin: 07/14/17 11:05 Dose: 0.5 mg Metronidazole (Flagyl) 500 mg in 100 mls @ 100 mls/hr IVPB Q8 [facility] Last Admin: 07/15/17 05:22 Dose: 100 mls/hr Meropenem 1 gm/ Sodium (Chloride) 100 mls @ 100 mls/hr IVPB Q8H [facility] Last Admin: 07/15/17 06:18 Dose: 100 mls/hr Linezolid (Zyvox 600mg/300ml D5w) 600 mg in 300 mls @ 200 mls/hr IVPB Q12 [facility] Last Admin: 07/15/17 09:52 Dose: 200 mls/hr Potassium Chloride (Potassium Chloride 20 Meq/100 Ml) 20 meq in 100 mls @ 50 mls/hr IVPB Q2H [facility] Stop: 07/15/17 17:59 Insulin Human Regular (Novolin R) 0 unit SC ACHS [facility] PRN Reason: Protocol Last Admin: 07/15/17 12:23 Dose: Not Given Lactulose (Enulose) 20 gm PO HS [facility] Last Admin: 07/14/17 21:24 Dose: 20 gm Latanoprost (Xalatan Opht) 0 ml OU HS [facility] Last Admin: 07/14/17 21:24 Dose: 2.5 ml Pantoprazole Sodium (Protonix Ec Tab) 40 mg PO ACB [facility] Last Admin: 07/15/17 08:02 Dose: 40 mg - Labs Labs: 07/15/17 07:09 07/15/17 07:09 PT 13.6 SECONDS (9.7-12.2) H 07/12/17 08:42 INR 1.2 07/12/17 08:42 Assessment and Plan (1) Abdominal pain Status: Acute (2) Ascites Status: Acute (3) Bandemia Status: Acute (4) Renal insufficiency Status: Chronic (5) Diabetes mellitus Status: Acute (6) Hypertension Status: Acute
[2017-07-15 17:31] VITALS: BP 100/69; PULSE 73; TEMP 97.9; O2SAT 95
[2017-07-15] MEDS: Latanoprost 2.5 ml Opht Soln OU SCH (21:31)
== END 2017-07-15 22:32 | DRG 392 ==
LOC: C.ER 11:19 → C.9E 17:55 → C.3T 07-09 09:44 → OBSVTOIN 07-10 18:36 → C.3T 07-14 14:24
PROVIDERS: ADMIT Internal Medicine Cardiovascular Disease; ATTEND Internal Medicine Cardiovascular Disease
PROC: 0W9G3ZX Drainage of Peritoneal Cavity, Percutaneous Approach, Diagnostic (ICD-10-PCS; principal; 2017-07-12)
PROC: BW40ZZZ Ultrasonography of Abdomen (ICD-10-PCS; 2017-07-12)
DX: K57.20 Diverticulitis of large intestine with perforation and abscess without bleeding (principal); N17.9 Acute kidney failure, unspecified; R18.8 Other ascites; D72.825 Bandemia; E11.22 Type 2 diabetes mellitus with diabetic chronic kidney disease; K52.9 Noninfective gastroenteritis and colitis, unspecified; K70.31 Alcoholic cirrhosis of liver with ascites; I12.9 Hypertensive chronic kidney disease with stage 1 through stage 4 chronic kidney disease, or unspecified chronic kidney disease; N18.9 Chronic kidney disease, unspecified; M1A.9XX0 Chronic gout, unspecified, without tophus (tophi); F10.21 Alcohol dependence, in remission; Z86.010 Personal history of colon polyps; Z87.442 Personal history of urinary calculi; Z87.891 Personal history of nicotine dependence

== ENCOUNTER 2017-08-10 09:42 | Inpatient (IN) | payer MEDICARE ==
[2017-08-10 09:43] VITALS: BMI 32.6
--- NOTE | 2017-08-10 09:53 | C.PDOC ---
History Of Present Illness 72 Y/O MALE REFERRED FOR ABDOMEN OUTPATIENT CT A/P 08/08. POSSIBLE MICROPERF PER RADIOLOGY REPORT. DC 07/15 S/P INTRA ABDOMEN ABSCESS W I.R. DRAINAGE, COLITIS, ASCITES. NO SURG INTERVENTION. PS FINISHED IV ABX 08/06. PATIENT STATES "I FEEL FINE!" NO RECUR PAIN SINCE DC, EATING AND DRINKING WELL, PATIENT REPORTS BOWEL MOVEMENT WITHOUT DIFFERENCE AND DENIES FEVER, CHILLS, NV. NPO SINCE 0800 EXAM NAD NONTOXIC ABD SOFT NT ND NO R/G REMAINDER NEG Time Seen by Provider: 08/10/17 09:51 Chief Complaint (Nursing): Abdominal Pain History Per: Patient History/Exam Limitations: no limitations Onset/Duration Of Symptoms: Days Current Symptoms Are (Timing): Still Present Past Medical History Reviewed: Historical Data, Nursing Documentation, Vital Signs Vital Signs: Last Vital Signs Temp 98.3 F 08/10/17 09:51 Pulse 103 H 08/10/17 09:51 Resp 20 08/10/17 09:51 BP 148/89 08/10/17 09:51 Pulse Ox 100 08/10/17 11:20 - Medical History PMH: Arthritis, HTN, Chronic Kidney Disease Surgical History: No Surg Hx - [facility] Procedures DRAINAGE OF PERITONEAL CAVITY, PERCUTANEOUS APPROACH, DIAGN (07/10/17) ULTRASONOGRAPHY OF ABDOMEN (07/10/17) Family History: States: No Known Family Hx - Social History Hx Alcohol Use: No Hx Substance Use: No - Immunization History Hx Tetanus Toxoid Vaccination: No Hx Influenza Vaccination: Yes Hx Pneumococcal Vaccination: Yes Review Of Systems Constitutional: Negative for: Fever, Chills Gastrointestinal: Negative for: Nausea, Vomiting, Abdominal Pain Physical Exam - Physical Exam Appears: Non-toxic, No Acute Distress Skin: Warm, Dry, No Rash Head: Atraumatic, Normacephalic Oral Mucosa: Moist Neck: Normal ROM, Supple Cardiovascular: Rhythm Regular Respiratory: Normal Breath Sounds, No Rales, No Rhonchi, No Wheezing Gastrointestinal/Abdominal: Soft, No Tenderness, No Guarding, No Rebound Back: No CVA Tenderness Extremity: Normal ROM, Capillary Refill (<2 seconds) Neurological/Psych: Oriented x3, Normal Speech ED Course And Treatment - Laboratory Results Result Diagrams: 08/10/17 10:20 08/10/17 10:20 ECG: Interpreted By Me, Viewed By Me Rate From EC (BPM) O2 Sat by Pulse Oximetry: 100 (RA) Pulse Ox Interpretation: Normal Progress - Re-Evaluation Re-evaluation Note: 08/10/17 10:03 D/W DR JONES. REQUESTING CONSULT DR VELIZ. WILL ADMIT 08/10/17 10:30 D/W DR DIAMOND SURG RESIDENT AWARE OF ER FINDINGS WILL EVAL - Data Reviewed Data Reviewed: Lab, Diagnostic imaging, EKG, Old records - Continuity of Care Discussed patient case with:: Patient, PMD Discussed pt. case with industry consultant/specialty: General Surgery Disposition Counseled Patient/Family Regarding: Diagnosis - Disposition Disposition: HOSPITALIZED Disposition Time: 10:42 Condition: STABLE - POA Present On Arrival: None - Clinical Impression Clinical Impression: Perforated abdominal viscus - Scribe Statement The provider has reviewed the documentation as recorded by the Scribeleno Mehta All medical record entries made by the Scribe were at my direction and personally dictated by me. I have reviewed the chart and agree that the record accurately reflects my personal performance of the history, physical exam, medical decision making, and the department course for this patient. I have also personally directed, reviewed, and agree with the discharge instructions and disposition. Decision To Admit - Pt Status Changed To: Hospital Disposition Of: Inpatient - Admit Certification Admit to Inpatient:: After my assessment, the patient will require hospitalization for at least two midnights. This is because of the severity of symptoms shown, intensity of services needed, and/or the medical risk in this patient being treated as an outpatient. - InPatient: Physician Admission Certification: I certify that this patient requires 2 or more midnights of care for the following reason:: SEE NOTE - . Bed Request Type: Regular Admitting Physician: Fabio Jones Patient Diagnosis: Perforated abdominal viscus
[2017-08-10] MEDS ORDERED: Sodium Chloride 0.9% 1,000 ML IV ONE (10:09)
[2017-08-10] MEDS ORDERED: Sodium Chloride 0.9% 1,000 ML ONE (10:23)
[2017-08-10 10:24] LABS: VENOUS BLOOD GAS BASE EXCESS 1.5 mmol/L (0.0-2.0); VENOUS BLOOD GAS PCO2 39 mmHg (40-60); VENOUS BLOOD GAS PO2 52 mm/Hg (30-55); VENOUS BLOOD PH 7.43 (7.32-7.43)
[2017-08-10 10:29] LABS: BASO % 0.6 % (0.0-2.0); EOS # 0.1 K/uL (0.0-0.7); EOS % 2.1 % (0.0-4.0); HEMOGLOBIN 13.7 g/dL (12.0-18.0); LYMPH % 23.8 % (20.0-40.0); MEAN CELL VOLUME 82.6 fL (80.0-94.0); MEAN CORPUSCULAR HEMOGLOBIN 27.1 pg (27.0-31.0); MEAN CORPUSCULAR HGB CONC 32.8 g/dL (33.0-37.0); MEAN PLATELET VOLUME 8.3 fL (7.2-11.7); MONO # 0.4 K/uL (0.0-0.8); MONO % 10.4 % (0.0-10.0); NEUT # 2.7 K/uL (1.8-7.0); NEUT % 63.1 % (50.0-75.0); NRBC % 0.2 % (0.0-2.0); RBC 5.06 Mil/uL (4.40-5.90); RED CELL DISTRIBUTION WIDTH 20.7 % (11.5-14.5); WHITE BLOOD COUNT 4.3 K/uL (4.8-10.8)
[2017-08-10 10:37] LABS: INR 1.3; PROTHROMBIN TIME 14.7 SECONDS (9.7-12.2)
[2017-08-10 10:53] LABS: ALB/GLOB RATIO 0.9 (1.0-2.1); ALBUMIN 3.5 g/dL (3.5-5.0); ALT/SGPT 19 U/L (21-72); AST/SGOT 17 U/L (17-59); BLOOD UREA NITROGEN 18 mg/dL (9-20); CALCIUM 8.6 mg/dl (8.6-10.4); GFR AFRICAN-AMERICAN > 60; GFR NON-AFRICAN AMERICAN > 60; LIPASE 294 U/L (23-300)
[2017-08-10 11:08] LABS: SQUAMOUS EPITHIAL < 1 /hpf (0-5); URINE BACTERIA RARE (<OCC); URINE BILIRUBIN NEGATIVE (NEGATIVE); URINE BLOOD NEGATIVE (NEGATIVE); URINE CLARITY Clear (Clear); URINE COLOR Straw (YELLOW); URINE GLUCOSE (UA) NORMAL (Normal); URINE LEUKOCYTE ESTERASE TRACE Leu/uL (Negative); URINE PROTEIN NEGATIVE (NEGATIVE); URINE UROBILINOGEN NORMAL mg/dL (0.2-1.0)
--- NOTE | 2017-08-10 11:16 | RAD ---
PROCEDURE: CHEST RADIOGRAPH, 1 VIEW HISTORY: abd pain COMPARISON: Chest radiograph dated 07/15/2017. FINDINGS: LUNGS: Clear. PLEURA: No pneumothorax or pleural fluid seen. CARDIOVASCULAR: Atherosclerotic aortic calcifications. Cardiomediastinal silhouette unchanged. OSSEOUS STRUCTURES: Changed. VISUALIZED UPPER ABDOMEN: Normal. OTHER FINDINGS: Extremity PICC, unchanged. IMPRESSION: No active disease.
[2017-08-10] MEDS ORDERED: Imipenem/Cilastatin 500 MG in Dextrose 5% In Water 100 ML IVPB SCH (13:30)
--- NOTE | 2017-08-10 13:39 | CP.PCM.HP ---
History of Present Illness - History of Present Illness History of Present Illness: COMPREHENSIVE HISTORY & PHYSICAL EXAM HPI READMITTED FROM [facility] AFTER REPEAT CT OF ABD. SHOWED MICRO PERFORATION PT WAS ADMITTED IN 2017 IN FOR ABDOMINAL PAIN . FINAL W/U WAS FLUID COLLECTION IN R. LOWER QUAD . , UNABLE TO ASPIRATE AND SURGERY DECLINED ANY INTERVENTION . PT WAS KEPT ON IV AB IN REHAB. FOR 3 WEEKS WITH IMPROVEMENT IN [place] N. PT. CURRENTLY HAS NO GI SYMPTOMS ALSO THERE IS POSSIBLE OF MASS INR. IN RLQ. COLONOSCOPY NOT DONE YET DUE TO ACUTE INFECTIOUS PROCESS PAST HIST. HTN PERSONAL HIST: Smoking. N Alcohol. N Allergy N Travel_- . FAMILY HIST : ROS : Constitutional: Negative for weight change, chills, night sweats, fatigue and usage of assist device. Eyes: Negative for redness, swelling, itching, discharge, vision changes, blurry vision, double vision, glaucoma, cataracts, Ears: Negative for hearing loss, ringing, , tinnitus, vertigo Nose: Negative for rhinorrhea, stuffiness, sniffing, itching, postnasal drip, discoloration, nasal congestion and epistaxis. Throat: Negative for throat clearing, sore throat, hoarseness, difficulty swallowing and difficulty speaking. Respiratory: Negative for cough, , sputum production, chest tightness, wheezing, pleuritic chest pain ,daytime somnolence, chronic cough, hemoptysis, snoring at night, Cardiovascular: Negative for chest pain, palpitations, orthopnea, PND, Edema of legs, leg cramps, angina, claudication, , irregular heartbeat, Neurology: Negative for irritability, muscle weakness, numbness and tingling, seizures, tremors, migraines, slurred speech, syncope, memory loss, mood changes , recurrent headaches Gastrointestinal: Negative for difficulty swallowing, diarrhea, constipation, black stools, rectal bleeding, nausea, flatulence, reflux, poor appetite, changes in bowel habits, abdominal pain Genitourinary: Negative for frequent urination, hematuria, discharge, incontinence, urinary retention, frequent UTI, Psychiatric: Negative for depression, anxiety/panic, suicidal tendencies, Musculoskeletal: Negative for swollen joints, back pain, , neck pain, morning stiffness of joints, . Skin: Negative for rash, ulcers, itching, dry skin and pigmented lesions. P/E: Constitutional: Appears stated age and in no apparent distress. Head: Normocephalic. Ears: External ear canals patent without inflammation. Tympanic membranes intact with normal light reflex and landmark. Eyes: Pupils are central, bilaterally equal, symmetrical and reacts to light with normal movements and no icterus or pallor. Nose: External nares are patent. Mucosa is pink Mouth-Throat: Good general appearance and condition. No post-pharyngeal/oropharyngeal erythema and tonsillar hypertrophy. Good dental hygiene. Neck-Lymphatic: Neck is supple with normal ROM, no thyromegaly, lymph nodes or masses. JVD is normal with no carotid bruit. Lungs: Clear to percussion and auscultation with bilateral normal air entry. Cardiovascular: S1 and S2 are normal with no murmurs, gallops and rub. GI Exam: No hepatomegaly. Abdomen is soft and DEEP TENDERNESS IN RLQ No Organomegaly , masses or hernias are evident and bowel sounds are normal and active. Neurology: Higher function and all cranial nerves intact, with no gross motor or sensory deficit. Superficial and deep reflexes are normal with downwards planters. No cerebellar deficit with normal gait. Musculoskeletal: No tender spots with normal curvature of the spine with no swelling or restricted ROM of the small and large joints. Extremities: Homans sign absent. Intact pulses with no pitting edema, calf tenderness or skin color changes. Skin: No rash, eruptions or abnormal skin pigmentation LAB/RADIOLOGY: ASSESMENT : R/Q PHLEGMOUN WITH ?MICRO PERFORATION SOFT TISSUE MASS IN 2 LOCATION , NOT YET INVESTIGATED ON GOING INTRAABD. SEPSIS HTN PLAN: SURGICAL/ID EVAL IV AB Present on Admission - Present on Admission Any Indicators Present on Admission: No Past Patient History - Infectious Disease Hx of Infectious Diseases: None - Past Medical History & Family History Past Medical History?: No - Past Social History Smoking Status: Never Smoked - CARDIAC Hx Hypertension: Yes - RENAL Hx Chronic Kidney Disease: Yes - ENDOCRINE/METABOLIC Hx Endocrine Disorders: Yes Hx Diabetes Mellitus Type 2: Yes - MUSCULOSKELETAL/RHEUMATOLOGICAL Hx Arthritis: Yes - PSYCHIATRIC Hx Substance Use: No - SURGICAL HISTORY Hx Surgeries: Yes Other/Comment: gall stone and kidney stone removal. - ANESTHESIA Hx Anesthesia: Yes Hx Anesthesia Reactions: No Hx Malignant Hyperthermia: No Meds Allergies/Adverse Reactions: Allergies Allergy/AdvReac Type Severity Reaction Status Date / Time iodine Allergy Verified 08/10/17 09:57 strawberry Allergy Verified 08/10/17 09:57 peaches Allergy Uncoded 08/10/17 09:57 seafood Allergy Uncoded 08/10/17 09:57 Results - Vital Signs Recent Vital Signs: Last Vital Signs Temp 98.3 F 08/10/17 12:48 Pulse 88 08/10/17 12:48 Resp 20 08/10/17 12:48 BP 132/87 08/10/17 12:48 Pulse Ox 100 08/10/17 12:48 - Labs Result Diagrams: 08/10/17 10:20 08/10/17 10:20 Labs: Laboratory Results - last 24 hr 08/10/17 08/10/17 08/10/17 09:55 10:20 10:20 WBC 4.3 L D RBC 5.06 Hgb 13.7 Hct 41.8 MCV 82.6 D MCH 27.1 MCHC 32.8 L RDW 20.7 H Plt Count 209 MPV 8.3 Neut % (Auto) 63.1 Lymph % (Auto) 23.8 [place] % (Auto) 10.4 H Eos % (Auto) 2.1 Baso % (Auto) 0.6 Neut # (Auto) 2.7 Lymph # (Auto) 1.0 [place] # (Auto) 0.4 Eos # (Auto) 0.1 Baso # (Auto) 0.0 PT 14.7 H INR 1.3 APTT 33 pO2 VBG pH VBG pCO2 VBG HCO3 VBG Total CO2 VBG O2 Sat (Calc) VBG Base Excess VBG Potassium Glucose Lactate Sodium Potassium Chloride Carbon Dioxide Anion Gap BUN Creatinine Est GFR ( Amer) Est GFR (Non-Af Amer) POC Glucose (mg/dL) 98 Random Glucose Calcium Total Bilirubin AST ALT Alkaline Phosphatase Total Protein Albumin Globulin Albumin/Globulin Ratio Lipase Venous Blood Potassium Urine Color Urine Clarity Urine pH Ur Specific [place] Urine Protein Urine Glucose (UA) Urine Ketones Urine Blood Urine Nitrate Urine Bilirubin Urine Urobilinogen Ur Leukocyte Esterase Urine WBC (Auto) Urine RBC (Auto) Ur Squamous Epith Cells Urine Bacteria 08/10/17 08/10/17 08/10/17 10:20 10:21 10:52 WBC RBC Hgb Hct MCV MCH MCHC RDW Plt Count MPV Neut % (Auto) Lymph % (Auto) [place] % (Auto) Eos % (Auto) Baso % (Auto) Neut # (Auto) Lymph # (Auto) [place] # (Auto) Eos # (Auto) Baso # (Auto) PT INR APTT pO2 52 VBG pH 7.43 VBG pCO2 39 L VBG HCO3 25.8 VBG Total CO2 27.1 VBG O2 Sat (Calc) 91.6 H VBG Base Excess 1.5 VBG Potassium 3.5 L Glucose 90 Lactate 1.5 Sodium 138 137.0 Potassium 3.6 Chloride 101 104.0 Carbon Dioxide 24 Anion Gap 17 BUN 18 Creatinine 1.0 Est GFR ( Amer) > 60 Est GFR (Non-Af Amer) > 60 POC Glucose (mg/dL) Random Glucose 84 Calcium 8.6 Total Bilirubin 0.4 AST 17 D ALT 19 L D Alkaline Phosphatase 53 Total Protein 7.3 Albumin 3.5 D Globulin 3.8 Albumin/Globulin Ratio 0.9 L Lipase 294 Venous Blood Potassium 3.5 L Urine Color Straw Urine Clarity Clear Urine pH 6.0 Ur Specific [place] 1.008 Urine Protein Negative Urine Glucose (UA) Normal Urine Ketones Negative Urine Blood Negative Urine Nitrate Negative Urine Bilirubin Negative Urine Urobilinogen Normal Ur Leukocyte Esterase Trace Urine WBC (Auto) 1 Urine RBC (Auto) < 1 Ur Squamous Epith Cells < 1 Urine Bacteria Rare
--- NOTE | 2017-08-10 13:51 | CP.PCM.CON ---
History of Present Illness - History of Present Illness History of Present Illness: INFECTIOUS DISEASE CONSULT; HPI 72-year-old male with history of diabetes mellitus, hypertension who was sent from [facility] after abdominal CT showed possible microperforation at the level of appendix. Patient well known to me from his admission of 07/08/17-07/15/17 when he was diagnosed to have a diverticular abscess and collection in the right lower quadrant. I ER aspirated the fluid from right lower quadrant and it was found that he had positive VRE/Escherichia coli intra-abdominal abscess. Patient was then sent to subacute rehabilitation for 3 weeks of IV antibiotics including cefepime and IV Zyvox. Patient just finished his IV antibiotics on 08/06/17. Patient presently denies any abdominal pain or nausea or vomiting. Patient was transferred to [facility] for surgical evaluation as per chart noted for microperforation of intra-abdominal viscus and questionable cecal mass or soft tissue density. Patient has lost a lot of weight during the past recent months prior to his admission to [facility] of 07/08/17. Patient presently denies any melanotic stools or diarrhea. PATIENT ALSO DENIES NAUSEA VOMITING. PATIENT ALSO HAS HISTORY OF CIRRHOSIS WITH ASCITES INFECTIOUS DISEASE CONSULTATION REQUESTED BY PMD FOR MICROPERFORATION INTRA- ABDOMINAL VISCUS AND ABSCESS PMH; HTN, DM-2, GOUT, CRI, HX OF UROLITHIASIS. SH; FORMER SMOKER, DENIES DRINKING OR SUBSTANCE ABUSE . USED TO DRINK HEAVILY BEFORE FH ; NONCONTRIBUTORY. ALLERGY; NKA Past Patient History - Infectious Disease Hx of Infectious Diseases: None - Past Medical History & Family History Past Medical History?: No - Past Social History Smoking Status: Never Smoked - CARDIAC Hx Hypertension: Yes - RENAL Hx Chronic Kidney Disease: Yes - ENDOCRINE/METABOLIC Hx Endocrine Disorders: Yes Hx Diabetes Mellitus Type 2: Yes - MUSCULOSKELETAL/RHEUMATOLOGICAL Hx Arthritis: Yes - PSYCHIATRIC Hx Substance Use: No - SURGICAL HISTORY Hx Surgeries: Yes Other/Comment: gall stone and kidney stone removal. - ANESTHESIA Hx Anesthesia: Yes Hx Anesthesia Reactions: No Hx Malignant Hyperthermia: No Meds Allergies/Adverse Reactions: Allergies Allergy/AdvReac Type Severity Reaction Status Date / Time iodine Allergy Verified 08/10/17 09:57 strawberry Allergy Verified 08/10/17 09:57 peaches Allergy Uncoded 08/10/17 09:57 seafood Allergy Uncoded 08/10/17 09:57 - Medications Medications: Current Medications Sodium Chloride (Sodium Chloride 0.9%) 1,000 mls @ 100 mls/hr IV .Q10H ONE Stop: 08/10/17 20:08 Last Admin: 08/10/17 10:25 Dose: 100 mls/hr Imipenem/Cilastatin Sodium 500 (mg/ Sodium Chloride) 100 mls @ 100 mls/hr IVPB Q8H GUME PRN Reason: Protocol Linezolid (Zyvox 600mg/300ml D5w) 600 mg in 300 mls @ 200 mls/hr IVPB Q12 GUME PRN Reason: Protocol Results - Vital Signs Recent Vital Signs: Last Vital Signs Temp 98.3 F 08/10/17 12:48 Pulse 88 08/10/17 12:48 Resp 20 08/10/17 12:48 BP 132/87 08/10/17 12:48 Pulse Ox 100 08/10/17 12:48 - Labs Result Diagrams: 08/10/17 10:20 08/10/17 10:20 Labs: Laboratory Results - last 24 hr 08/10/17 08/10/17 08/10/17 09:55 10:20 10:20 WBC 4.3 L D RBC 5.06 Hgb 13.7 Hct 41.8 MCV 82.6 D MCH 27.1 MCHC 32.8 L RDW 20.7 H Plt Count 209 MPV 8.3 Neut % (Auto) 63.1 Lymph % (Auto) 23.8 [place] % (Auto) 10.4 H Eos % (Auto) 2.1 Baso % (Auto) 0.6 Neut # (Auto) 2.7 Lymph # (Auto) 1.0 [place] # (Auto) 0.4 Eos # (Auto) 0.1 Baso # (Auto) 0.0 PT 14.7 H INR 1.3 APTT 33 pO2 VBG pH VBG pCO2 VBG HCO3 VBG Total CO2 VBG O2 Sat (Calc) VBG Base Excess VBG Potassium Glucose Lactate Sodium Potassium Chloride Carbon Dioxide Anion Gap BUN Creatinine Est GFR ( Amer) Est GFR (Non-Af Amer) POC Glucose (mg/dL) 98 Random Glucose Calcium Total Bilirubin AST ALT Alkaline Phosphatase Total Protein Albumin Globulin Albumin/Globulin Ratio Lipase Venous Blood Potassium Urine Color Urine Clarity Urine pH Ur Specific [place] Urine Protein Urine Glucose (UA) Urine Ketones Urine Blood Urine Nitrate Urine Bilirubin Urine Urobilinogen Ur Leukocyte Esterase Urine WBC (Auto) Urine RBC (Auto) Ur Squamous Epith Cells Urine Bacteria 08/10/17 08/10/17 08/10/17 10:20 10:21 10:52 WBC RBC Hgb Hct MCV MCH MCHC RDW Plt Count MPV Neut % (Auto) Lymph % (Auto) [place] % (Auto) Eos % (Auto) Baso % (Auto) Neut # (Auto) Lymph # (Auto) [place] # (Auto) Eos # (Auto) Baso # (Auto) PT INR APTT pO2 52 VBG pH 7.43 VBG pCO2 39 L VBG HCO3 25.8 VBG Total CO2 27.1 VBG O2 Sat (Calc) 91.6 H VBG Base Excess 1.5 VBG Potassium 3.5 L Glucose 90 Lactate 1.5 Sodium 138 137.0 Potassium 3.6 Chloride 101 104.0 Carbon Dioxide 24 Anion Gap 17 BUN 18 Creatinine 1.0 Est GFR ( Amer) > 60 Est GFR (Non-Af Amer) > 60 POC Glucose (mg/dL) Random Glucose 84 Calcium 8.6 Total Bilirubin 0.4 AST 17 D ALT 19 L D Alkaline Phosphatase 53 Total Protein 7.3 Albumin 3.5 D Globulin 3.8 Albumin/Globulin Ratio 0.9 L Lipase 294 Venous Blood Potassium 3.5 L Urine Color Straw Urine Clarity Clear Urine pH 6.0 Ur Specific [place] 1.008 Urine Protein Negative Urine Glucose (UA) Normal Urine Ketones Negative Urine Blood Negative Urine Nitrate Negative Urine Bilirubin Negative Urine Urobilinogen Normal Ur Leukocyte Esterase Trace Urine WBC (Auto) 1 Urine RBC (Auto) < 1 Ur Squamous Epith Cells < 1 Urine Bacteria Rare Assessment & Plan - Assessment and Plan (Free Text) Assessment: DIVERTICULAR ABSCESS -MICROPERFORATION/COLLECTION ? CECAL MASS. +VE VRE/E. COLI. ASCITES/ CIRRHOSIS HTN DM. GOUT /PLAN : PANCULTURES START iv PRIMAXIN 500 MG EVERY 8 HOURLY 08/10/17. ADD iv ZYVOX 6 AND MILLIGRAMS EVERY 12 HOURLY 08/10/17. SURGERY CONSULTED AND NOTED. F/U BLOOD CULTURES. WILL FOLLOW ALONG WITH YOU AND MAKE FURTHER RECOMMENDATIONS NEEDED.
[2017-08-10] MEDS ORDERED: Linezolid 600 mg in D5W 300 ml 600 MG/300 ML BAG IVPB SCH ×2 (14:00→16:00)
--- NOTE | 2017-08-10 14:41 | CP.PCM.CON ---
History of Present Illness - History of Present Illness History of Present Illness: Surgery: Dr. King Pt is a 72M with a PMHx significant for DM, & HTN who was sent to the ER from [facility] after abdominal CT showed possible microperforation at the level of the appendix. Of note, pt was recently admitted in Jun 2017 at [facility] with diffuse abdominal pain & at that time was worked up and found to have a fluid collection in the RLQ. IR drained fluid from RLq & pt was discharged with abx for 21 days. Pt just finished his ABX course this past Tuesday and is completely asymptomatic. Surgery consulted to evaluate pt due to CT findings. Currently, pt is resting comfortably in ER bed. States he feels well and doesn' t have any complaints. He states he has been tolerating his diet and having BMs without any issues. He denies any abdominal pain and states when he was here in jun he had severe pain at that time which has since resolved. Denies N/V, F/C, chest pain or SOB. Review of Systems - Constitutional Constitutional: absent: Chills, Fever - EENT Eyes: absent: Change in Vision Nose/Mouth/Throat: absent: Neck Pain - Cardiovascular Cardiovascular: absent: Chest Pain, Palpitations - Respiratory Respiratory: absent: Cough, Dyspnea - Gastrointestinal Gastrointestinal: absent: Abdominal Pain, Change in Bowel Habits, Constipation, Diarrhea, Nausea, Vomiting Past Patient History - Infectious Disease Hx of Infectious Diseases: None - Past Medical History & Family History Past Medical History?: No - Past Social History Smoking Status: Never Smoked - CARDIAC Hx Hypertension: Yes - RENAL Hx Chronic Kidney Disease: Yes - ENDOCRINE/METABOLIC Hx Endocrine Disorders: Yes Hx Diabetes Mellitus Type 2: Yes - MUSCULOSKELETAL/RHEUMATOLOGICAL Hx Arthritis: Yes - PSYCHIATRIC Hx Substance Use: No - SURGICAL HISTORY Hx Surgeries: Yes Other/Comment: gall stone and kidney stone removal. - ANESTHESIA Hx Anesthesia: Yes Hx Anesthesia Reactions: No Hx Malignant Hyperthermia: No Meds Allergies/Adverse Reactions: Allergies Allergy/AdvReac Type Severity Reaction Status Date / Time iodine Allergy Verified 08/10/17 09:57 strawberry Allergy Verified 08/10/17 09:57 peaches Allergy Uncoded 08/10/17 09:57 seafood Allergy Uncoded 08/10/17 09:57 - Medications Medications: Current Medications Allopurinol (Zyloprim) 300 mg PO DAILY [facility] Amlodipine Besylate (Norvasc) 10 mg PO DAILY [facility] Sodium Chloride (Sodium Chloride 0.9%) 1,000 mls @ 100 mls/hr IV .Q10H ONE Stop: 08/10/17 20:08 Last Admin: 08/10/17 10:25 Dose: 100 mls/hr Imipenem/Cilastatin Sodium 500 (mg/ Sodium Chloride) 100 mls @ 100 mls/hr IVPB Q8H [facility] PRN Reason: Protocol Linezolid (Zyvox 600mg/300ml D5w) 600 mg in 300 mls @ 200 mls/hr IVPB Q12 [facility] PRN Reason: Protocol Sodium Chloride (Sodium Chloride 0.45%) 1,000 mls @ 100 mls/hr IV .Q10H [facility] Insulin Human Regular (Novolin R) 0 unit SC ACHS GUME PRN Reason: Protocol Pantoprazole Sodium (Protonix Ec Tab) 40 mg PO DAILY [facility] Physical Exam - Constitutional Appears: Well, No Acute Distress - Head Exam Head Exam: ATRAUMATIC, NORMAL INSPECTION, NORMOCEPHALIC - Eye Exam Eye Exam: EOMI, Normal appearance Pupil Exam: NORMAL ACCOMODATION, PERRL - ENT Exam ENT Exam: Mucous Membranes Moist, Normal Exam - Respiratory Exam Respiratory Exam: Clear to Auscultation Bilateral, NORMAL BREATHING PATTERN - Cardiovascular Exam Cardiovascular Exam: REGULAR RHYTHM, +S1, +S2 - GI/Abdominal Exam GI & Abdominal Exam: Normal Bowel Sounds, Soft. absent: Guarding, Rebound, Rigid, Tenderness - Extremities Exam Extremities exam: Positive for: normal inspection. Negative for: joint swelling - Neurological Exam Neurological exam: Alert, CN II-XII Intact, Oriented x3 - Psychiatric Exam Psychiatric exam: Normal Affect, Normal Mood - Skin Skin Exam: Intact, Normal Color Results - Vital Signs Recent Vital Signs: Last Vital Signs Temp 99.2 F 08/10/17 14:23 Pulse 81 08/10/17 14:23 Resp 20 08/10/17 14:23 BP 147/81 08/10/17 14:23 Pulse Ox 100 08/10/17 14:23 - Labs Result Diagrams: 08/10/17 10:20 08/10/17 10:20 Labs: Laboratory Results - last 24 hr 08/10/17 08/10/17 08/10/17 09:55 10:20 10:20 WBC 4.3 L D RBC 5.06 Hgb 13.7 Hct 41.8 MCV 82.6 D MCH 27.1 MCHC 32.8 L RDW 20.7 H Plt Count 209 MPV 8.3 Neut % (Auto) 63.1 Lymph % (Auto) 23.8 [place] % (Auto) 10.4 H Eos % (Auto) 2.1 Baso % (Auto) 0.6 Neut # (Auto) 2.7 Lymph # (Auto) 1.0 [place] # (Auto) 0.4 Eos # (Auto) 0.1 Baso # (Auto) 0.0 PT 14.7 H INR 1.3 APTT 33 pO2 VBG pH VBG pCO2 VBG HCO3 VBG Total CO2 VBG O2 Sat (Calc) VBG Base Excess VBG Potassium Glucose Lactate Sodium Potassium Chloride Carbon Dioxide Anion Gap BUN Creatinine Est GFR ( Amer) Est GFR (Non-Af Amer) POC Glucose (mg/dL) 98 Random Glucose Calcium Total Bilirubin AST ALT Alkaline Phosphatase Total Protein Albumin Globulin Albumin/Globulin Ratio Lipase Venous Blood Potassium Urine Color Urine Clarity Urine pH Ur Specific [place] Urine Protein Urine Glucose (UA) Urine Ketones Urine Blood Urine Nitrate Urine Bilirubin Urine Urobilinogen Ur Leukocyte Esterase Urine WBC (Auto) Urine RBC (Auto) Ur Squamous Epith Cells Urine Bacteria 08/10/17 08/10/17 08/10/17 10:20 10:21 10:52 WBC RBC Hgb Hct MCV MCH MCHC RDW Plt Count MPV Neut % (Auto) Lymph % (Auto) [place] % (Auto) Eos % (Auto) Baso % (Auto) Neut # (Auto) Lymph # (Auto) [place] # (Auto) Eos # (Auto) Baso # (Auto) PT INR APTT pO2 52 VBG pH 7.43 VBG pCO2 39 L VBG HCO3 25.8 VBG Total CO2 27.1 VBG O2 Sat (Calc) 91.6 H VBG Base Excess 1.5 VBG Potassium 3.5 L Glucose 90 Lactate 1.5 Sodium 138 137.0 Potassium 3.6 Chloride 101 104.0 Carbon Dioxide 24 Anion Gap 17 BUN 18 Creatinine 1.0 Est GFR ( Amer) > 60 Est GFR (Non-Af Amer) > 60 POC Glucose (mg/dL) Random Glucose 84 Calcium 8.6 Total Bilirubin 0.4 AST 17 D ALT 19 L D Alkaline Phosphatase 53 Total Protein 7.3 Albumin 3.5 D Globulin 3.8 Albumin/Globulin Ratio 0.9 L Lipase 294 Venous Blood Potassium 3.5 L Urine Color Straw Urine Clarity Clear Urine pH 6.0 Ur Specific [place] 1.008 Urine Protein Negative Urine Glucose (UA) Normal Urine Ketones Negative Urine Blood Negative Urine Nitrate Negative Urine Bilirubin Negative Urine Urobilinogen Normal Ur Leukocyte Esterase Trace Urine WBC (Auto) 1 Urine RBC (Auto) < 1 Ur Squamous Epith Cells < 1 Urine Bacteria Rare - Imaging and Cardiology CT scan - abdomen Status: Image reviewed by me, Report reviewed by me Assessment & Plan - Assessment and Plan (Free Text) Assessment: 72[address] scan findings concerning for microperforation Plan: - pt is completely asymptomatic,tolerating diet & having BMs without any fevers or white count - no surgical intervention at this time - residual inflammatory process in RLQ should improve with time - case d/w Dr. King who agrees with above [place], PGY-3
[2017-08-10] MEDS: Sodium Chloride 0.45% 1,000 ML IV SCH (16:29)
[2017-08-10] MEDS: (Novolin R) Insulin Human Regular 100 units/ml vial SC SCH ×2 (17:33→22:10)
[2017-08-11] MEDS: Sodium Chloride 0.45% 1,000 ML IV SCH ×2 (01:18→10:02)
[2017-08-11] MEDS: (Novolin R) Insulin Human Regular 100 units/ml vial SC SCH ×2 (07:25→11:38)
[2017-08-11 07:48] LABS: BASO % 0.6 % (0.0-2.0); EOS # 0.2 K/uL (0.0-0.7); EOS % 4.4 % (0.0-4.0); LYMPH # 1.4 K/uL (1.0-4.3); LYMPH % 34.1 % (20.0-40.0); MEAN CELL VOLUME 84.1 fL (80.0-94.0); MEAN CORPUSCULAR HEMOGLOBIN 27.9 pg (27.0-31.0); MEAN CORPUSCULAR HGB CONC 33.1 g/dL (33.0-37.0); MEAN PLATELET VOLUME 8.7 fL (7.2-11.7); MONO # 0.4 K/uL (0.0-0.8); MONO % 9.4 % (0.0-10.0); NEUT # 2.1 K/uL (1.8-7.0); NEUT % 51.5 % (50.0-75.0); NRBC % 0.4 % (0.0-2.0); RBC 5.03 Mil/uL (4.40-5.90); RED CELL DISTRIBUTION WIDTH 21.2 % (11.5-14.5)
[2017-08-11 07:50] LABS: ALB/GLOB RATIO 0.9 (1.0-2.1); ALBUMIN 3.4 g/dL (3.5-5.0); ALT/SGPT 21 U/L (21-72); AST/SGOT 21 U/L (17-59); BLOOD UREA NITROGEN 10 mg/dL (9-20); CALCIUM 9.2 mg/dl (8.6-10.4); GFR AFRICAN-AMERICAN > 60; GFR NON-AFRICAN AMERICAN > 60
[2017-08-11 08:22] VITALS: BP 133/87; RESP 21; TEMP 98
[2017-08-11] MEDS ORDERED: Enoxaparin 40 mg Syringe SC SCH (10:00)
[2017-08-11] MEDS ORDERED: Pantoprazole 40 mg EC Tab PO SCH (10:00)
--- NOTE | 2017-08-11 11:11 | CP.PCM.PN ---
Subjective - Date & Time of Evaluation Date of Evaluation: 08/11/17 Time of Evaluation: 11:11 - Subjective Subjective: PATIENT WAS ADMITTED FOR PERFORATED INTRA ABD DENIES ANY CHEST PAIN/ ABD PAIN/ SOB NO SIGN OF DISTRESS NOTED Objective - Vital Signs/Intake and Output Vital Signs (last 24 hours): Temp Pulse Resp BP Pulse Ox 98.0 F 83 21 133/87 98 08/11/17 08:05 08/11/17 08:05 08/11/17 08:05 08/11/17 08:05 08/11/17 08:05 - Medications Medications: Current Medications Allopurinol (Zyloprim) 300 mg PO DAILY [facility] Last Admin: 08/11/17 09:52 Dose: 300 mg Amlodipine Besylate (Norvasc) 10 mg PO DAILY [facility] Last Admin: 08/11/17 09:52 Dose: 10 mg Enoxaparin Sodium (Lovenox) 40 mg SC DAILY [facility] Last Admin: 08/11/17 09:52 Dose: 40 mg Imipenem/Cilastatin Sodium 500 (mg/ Sodium Chloride) 100 mls @ 100 mls/hr IVPB Q8H [facility]ME PRN Reason: Protocol Last Admin: 08/11/17 06:18 Dose: 100 mls/hr Sodium Chloride (Sodium Chloride 0.45%) 1,000 mls @ 100 mls/hr IV .Q10H [facility] Last Admin: 08/11/17 10:02 Dose: Not Given Insulin Human Regular (Novolin R) 0 unit SC ACHS [facility]ME PRN Reason: Protocol Last Admin: 08/11/17 07:25 Dose: Not Given Linezolid (Zyvox) 600 mg PO Q12H [facility] Last Admin: 08/11/17 06:18 Dose: 600 mg Pantoprazole Sodium (Protonix Ec Tab) 40 mg PO DAILY [facility] Last Admin: 08/11/17 09:52 Dose: 40 mg - Labs Labs: 08/11/17 07:21 08/11/17 07:21 PT 14.7 SECONDS (9.7-12.2) H 08/10/17 10:20 INR 1.3 08/10/17 10:20 APTT 33 SECONDS (21-34) 08/10/17 10:20 Assessment and Plan - Assessment and Plan (Free Text) Assessment: PATIENT SEEN AND EXAMINED AT THE BEDSIDE LUNG SOUND CLEAR ABDOMINAL SOFT NON DISTENDED / POSITIVE BOWEL SOUND ALL QUADRANT DISCUSS WITH SURGICAL TEAM WHO CLEAR PATIENT FOR DC CT SHOW MICROPERFORATED ABD AND NO SRUGICAL INTERVENTION AT THIS TIME DISCUSS WITH DR HENDRICKSON WHO CLEAR PATIENT FOR DC PLACE UNDER THE SERVICE OF DR HENDRICKSON AT [facility] ---CALL DR HENDRICKSON FOR ADMITTING ORDER FOLLOW UP WITH DR JOHNSON IN [place] AT HER OFFICE ---CALL FOR APPOINTMENT CONTINUE ALL YOUR HOME MEDICATION ORDER NEW PRESCRIPTION GIVEN PRIMAXIN 500 MG IV Q8H FOR 14 DAYS ZYVOX 600 MG PO Q12H FOR 14 DAYS BLOOD WORK WEEKLY (CBC/LFT/CMP) ACTIVITY TOLERATED AND PER FACILITY PROTOCOL CALL DR HENDRICKSON FOR FURTHER ORDER
--- NOTE | 2017-08-11 13:57 | CP.PCM.DIS ---
Provider - Provider Date of Admission: 08/10/17 10:39 Attending physician: Fabio Jones MD Time Spent in preparation of Discharge (in minutes): 30 Hospital Course - Lab Results Lab Results: Micro Results 08/10/17 10:00 Blood Blood Culture - Preliminary NO GROWTH AFTER 24 HOURS 08/10/17 10:15 Blood Blood Culture - Preliminary NO GROWTH AFTER 24 HOURS Most Recent Lab Values WBC 4.0 K/uL (4.8-10.8) L 08/11/17 07:21 RBC 5.03 Mil/uL (4.40-5.90) 08/11/17 07:21 Hgb 14.0 g/dL (12.0-18.0) 08/11/17 07:21 Hct 42.3 % (35.0-51.0) 08/11/17 07:21 MCV 84.1 fL (80.0-94.0) 08/11/17 07:21 MCH 27.9 pg (27.0-31.0) 08/11/17 07:21 MCHC 33.1 g/dL (33.0-37.0) 08/11/17 07:21 RDW 21.2 % (11.5-14.5) H 08/11/17 07:21 Plt Count 218 K/uL (130-400) 08/11/17 07:21 MPV 8.7 fL (7.2-11.7) 08/11/17 07:21 Neut % (Auto) 51.5 % (50.0-75.0) 08/11/17 07:21 Lymph % (Auto) 34.1 % (20.0-40.0) 08/11/17 07:21 [place] % (Auto) 9.4 % (0.0-10.0) 08/11/17 07:21 Eos % (Auto) 4.4 % (0.0-4.0) H 08/11/17 07:21 Baso % (Auto) 0.6 % (0.0-2.0) 08/11/17 07:21 Neut # (Auto) 2.1 K/uL (1.8-7.0) 08/11/17 07:21 Lymph # (Auto) 1.4 K/uL (1.0-4.3) 08/11/17 07:21 [place] # (Auto) 0.4 K/uL (0.0-0.8) 08/11/17 07:21 Eos # (Auto) 0.2 K/uL (0.0-0.7) 08/11/17 07:21 Baso # (Auto) 0.0 K/uL (0.0-0.2) 08/11/17 07:21 PT 14.7 SECONDS (9.7-12.2) H 08/10/17 10:20 INR 1.3 08/10/17 10:20 APTT 33 SECONDS (21-34) 08/10/17 10:20 pO2 52 mm/Hg (30-55) 08/10/17 10:21 VBG pH 7.43 (7.32-7.43) 08/10/17 10:21 VBG pCO2 39 mmHg (40-60) L 08/10/17 10:21 VBG HCO3 25.8 mmol/L 08/10/17 10:21 VBG Total CO2 27.1 mmol/L (22-28) 08/10/17 10:21 VBG O2 Sat (Calc) 91.6 % (40-65) H 08/10/17 10:21 VBG Base Excess 1.5 mmol/L (0.0-2.0) 08/10/17 10:21 VBG Potassium 3.5 mmol/L (3.6-5.2) L 08/10/17 10:21 Sodium 137.0 mmol/l (132-148) 08/10/17 10:21 Chloride 104.0 mmol/L (98-107) 08/10/17 10:21 Glucose 90 mg/dl (75-110) 08/10/17 10:21 Lactate 1.5 mmol/L (0.7-2.1) 08/10/17 10:21 Sodium 141 mmol/L (132-148) 08/11/17 07:21 Potassium 3.9 mmol/L (3.6-5.2) 08/11/17 07:21 Chloride 103 mmol/L (98-107) 08/11/17 07:21 Carbon Dioxide 23 mmol/L (22-30) 08/11/17 07:21 Anion Gap 18 (10-20) 08/11/17 07:21 BUN 10 mg/dL (9-20) 08/11/17 07:21 Creatinine 1.0 mg/dL (0.8-1.5) 08/11/17 07:21 Est GFR ( Amer) > 60 08/11/17 07:21 Est GFR (Non-Af Amer) > 60 08/11/17 07:21 POC Glucose (mg/dL) 103 mg/dL (65-110) 08/11/17 11:35 Random Glucose 127 mg/dL (75-110) H 08/11/17 07:21 Calcium 9.2 mg/dl (8.6-10.4) 08/11/17 07:21 Total Bilirubin 0.4 mg/dL (0.2-1.3) 08/11/17 07:21 AST 21 U/L (17-59) 08/11/17 07:21 ALT 21 U/L (21-72) 08/11/17 07:21 Alkaline Phosphatase 60 U/L (38-126) 08/11/17 07:21 Total Protein 7.2 g/dL (6.3-8.3) 08/11/17 07:21 Albumin 3.4 g/dL (3.5-5.0) L 08/11/17 07:21 Globulin 3.8 gm/dL (2.2-3.9) 08/11/17 07:21 Albumin/Globulin Ratio 0.9 (1.0-2.1) L 08/11/17 07:21 Lipase 294 U/L (23-300) 08/10/17 10:20 Venous Blood Potassium 3.5 mmol/L (3.6-5.2) L 08/10/17 10:21 Urine Color Straw (YELLOW) 08/10/17 10:52 Urine Clarity Clear (Clear) 08/10/17 10:52 Urine pH 6.0 (5.0-8.0) 08/10/17 10:52 Ur Specific [place] 1.008 (1.003-1.030) 08/10/17 10:52 Urine Protein Negative mg/dL (NEGATIVE) 08/10/17 10:52 Urine Glucose (UA) Normal mg/dL (Normal) 08/10/17 10:52 Urine Ketones Negative mg/dL (NEGATIVE) 08/10/17 10:52 Urine Blood Negative (NEGATIVE) 08/10/17 10:52 Urine Nitrate Negative (NEGATIVE) 08/10/17 10:52 Urine Bilirubin Negative (NEGATIVE) 08/10/17 10:52 Urine Urobilinogen Normal mg/dL (0.2-1.0) 08/10/17 10:52 Ur Leukocyte Esterase Trace Ramona/uL (Negative) 08/10/17 10:52 Urine WBC (Auto) 1 /hpf (0-5) 08/10/17 10:52 Urine RBC (Auto) < 1 /hpf (0-3) 08/10/17 10:52 Ur Squamous Epith Cells < 1 /hpf (0-5) 08/10/17 10:52 Urine Bacteria Rare (<OCC) 08/10/17 10:52 - Hospital Course Hospital Course: READMITTED FROM [facility] AFTER REPEAT CT OF ABD. SHOWED MICRO PERFORATION PT WAS ADMITTED IN 2017 IN FOR ABDOMINAL PAIN . FINAL W/U WAS FLUID COLLECTION IN R. LOWER QUAD . , UNABLE TO ASPIRATE AND SURGERY DECLINED ANY INTERVENTION . PT WAS KEPT ON IV AB IN REHAB. FOR 3 WEEKS WITH IMPROVEMENT IN [place] N. PT. CURRENTLY HAS NO GI SYMPTOMS ALSO THERE IS POSSIBLE OF MASS INR. IN RLQ. COLONOSCOPY NOT DONE YET DUE TO ACUTE INFECTIOUS PROCESS CASE D/W ID /SUGERY PT WAS NOT DEEMED SUGICAL AND PT WAS TRANSFERRED BACK TO REHAB AND CONT IV AB Discharge Exam - Head Exam Head Exam: ATRAUMATIC, NORMAL INSPECTION, NORMOCEPHALIC Discharge Plan - Follow Up Plan Condition: STABLE Disposition: HOME/ ROUTINE Instructions: Peripherally-Inserted Central Catheter, Acute Abdomen (Belly Pain ) Additional Instructions: PLACE UNDER THE SERVICE OF DR JONES AT [facility] ---CALL DR JONES FOR ADMITTING ORDER FOLLOW UP WITH DR ISRAEL IN WEEKS AT HER OFFICE ---CALL FOR APPOINTMENT CONTINUE ALL YOUR HOME MEDICATION ORDER NEW PRESCRIPTION GIVEN PRIMAXIN 500 MG IV Q8H FOR 14 DAYS ZYVOX 600 MG PO Q12H FOR 14 DAYS BLOOD WORK WEEKLY (CBC/LFT/CMP) ACTIVITY TOLERATED AND PER FACILITY PROTOCOL CALL DR JONES FOR FURTHER ORDER Referrals: Maddy Israel MD [Staff Provider] - Fabio Jones MD [Staff Provider] -
[2017-08-11 14:58] VITALS: PULSE 78; O2SAT 96
--- NOTE | 2017-08-11 16:34 | CARD ---
APPROVED REPORT EKG Measurement Heart [id number] <Conclusion> sinus rhythm with frequent PVCs and ventricular couplets Anterior infarct, age undetermined Prolonged QT Abnormal ECG
== END 2017-08-11 13:11 | DRG 392 ==
LOC: C.ER 09:42 → C.9E 10:39 → C.5S 13:53
PROVIDERS: ADMIT Internal Medicine Cardiovascular Disease; ATTEND Internal Medicine Cardiovascular Disease
DX: K57.20 Diverticulitis of large intestine with perforation and abscess without bleeding (principal); E11.22 Type 2 diabetes mellitus with diabetic chronic kidney disease; R18.8 Other ascites; I12.9 Hypertensive chronic kidney disease with stage 1 through stage 4 chronic kidney disease, or unspecified chronic kidney disease; N18.9 Chronic kidney disease, unspecified; K74.60 Unspecified cirrhosis of liver; M10.9 Gout, unspecified; B96.20 Unspecified Escherichia coli [E. coli] as the cause of diseases classified elsewhere; Z79.4 Long term (current) use of insulin

== ENCOUNTER 2017-09-21 09:08 | Day surgery (SDC) | payer MEDICARE ==
[2017-09-21] MEDS ORDERED: Lactated Ringer's 500 ML IV ONE (11:15)
[2017-09-21] MEDS ORDERED: Propofol 10 mg/ml Inj (20 ML) ONE ×4 (11:19→12:16)
[2017-09-21] MEDS ORDERED: Lidocaine Hydrochloride 5 ML INJ ONE (11:19)
[2017-09-21 12:42] VITALS: TEMP 97
[2017-09-21 13:05] VITALS: O2SAT 98
[2017-09-21 14:48] VITALS: BP 139/81; PULSE 86; RESP 18
== END 2017-09-21 14:44 | disposition home or self-care (01) ==
LOC: C.ENDO 09:08
PROVIDERS: ATTEND Internal Medicine Gastroenterology
DX: C18.0 Malignant neoplasm of cecum (principal); K57.30 Diverticulosis of large intestine without perforation or abscess without bleeding; D12.2 Benign neoplasm of ascending colon; D12.3 Benign neoplasm of transverse colon
CPT/HCPCS: 45380; 45384; 88305; J2704; J7120

== ENCOUNTER 2017-10-19 06:02 | Inpatient (IN) | payer MEDICARE ==
[2017-10-19] MEDS ORDERED: ceFAZolin 1 gm in NS 2 GM/200 ML BAG IVPB ONE (07:03)
[2017-10-19] MEDS ORDERED: Lidocaine/Epinephrine 1% 1:100000 10 ML IJ ONE (07:04)
[2017-10-19] MEDS ORDERED: Bupivacaine HCl 0.25% PF (30 ml) Inj ONE (07:04)
[2017-10-19] MEDS ORDERED: Propofol 10 mg/ml Inj (20 ML) ONE (07:42)
[2017-10-19] MEDS ORDERED: Midazolam 2 MG/2 ML VIAL ONE (07:42)
[2017-10-19] MEDS ORDERED: Rocuronium 10 mg/ml (5 ml) ONE (07:44)
[2017-10-19] MEDS ORDERED: metroNIDAZOLE IV 500 mg/100 ml 500 MG/100 ML BAG ONE (08:14)
[2017-10-19] MEDS ORDERED: Bupivacaine HCl 0.5% PF (30 ml) Inj ONE (12:26)
[2017-10-19] MEDS ORDERED: Neostigmine Methylsulfate 3mg/3ml Syringe IV ONE (12:48)
[2017-10-19] MEDS ORDERED: Morphine 4 MG/ML VIAL ONE (13:05)
--- NOTE | 2017-10-19 13:53 | PCM.SURG1 ---
Surgeon's Initial Post Op Note - Surgeon's Notes Surgeon: Dr. Umaña Educational Speech Language Clinician: Dr. Mott Type of Anesthesia: General Endo Pre-Operative Diagnosis: Adenocarcinoma, History of diverticulitis and diverticular abscess Operative Findings: See operative dictation Post-Operative Diagnosis: Adeno Ca of colon Operation Performed: Extended right hemicolectomy, omentectomy, OnQ pump placement Specimen/Specimens Removed: Right colon, Omentum Estimated Blood Loss: EBL {In ML}: 50 Blood Products Given: N/A Drains Used: No Drains Post-Op Condition: Good Date of Surgery/Procedure: 10/19/17 Time of Surgery/Procedure: 13:53
[2017-10-19] MEDS ORDERED: BUPIVACAINE 0.125%/0.9% NACL 600 ML IJ ONE (13:58)
--- NOTE | 2017-10-19 14:02 | CP.PCM.HP ---
History of Present Illness - History of Present Illness History of Present Illness: COMPREHENSIVE HISTORY & PHYSICAL EXAM HPI Patient is admitted for right hemicolectomy for adeno CA of the colon. Patient currently is status post surgery. PAST HIST. Patient had a history of diverticulitis with microperforation. Patient received IV antibiotics for 3 weeks and a repeat CAT scan showed a possible mass in the right ascending colon. Subsequently patient went to colonoscopy and the biopsy showed adenocarcinoma. Currently patient has gone for right hemicolectomy. Patient has history of hypertension. Recent cardiac workup has been negative for any major ischemic heart disease. PERSONAL HIST: Smoking. N Alcohol. N Allergy N Travel_- . FAMILY HIST : ROS : P/E: Patient is postop Constitutional: Appears stated age and in no apparent distress. Head: Normocephalic. Ears: External ear canals patent without inflammation. Tympanic membranes intact with normal light reflex and landmark. Eyes: Pupils are central, bilaterally equal, symmetrical and reacts to light with normal movements and no icterus or pallor. Nose: External nares are patent. Mucosa is pink Mouth-Throat: Good general appearance and condition. No post-pharyngeal/oropharyngeal erythema and tonsillar hypertrophy. Good dental hygiene. Neck-Lymphatic: Neck is supple with normal ROM, no thyromegaly, lymph nodes or masses. JVD is normal with no carotid bruit. Lungs: Clear to percussion and auscultation with bilateral normal air entry. Cardiovascular: S1 and S2 are normal with no murmurs, gallops and rub. GI Exam postop changes Neurology: Higher function and all cranial nerves intact, with no gross motor or sensory deficit. Superficial and deep reflexes are normal with downwards planters. No cerebellar deficit with normal gait. Musculoskeletal: No tender spots with normal curvature of the spine with no swelling or restricted ROM of the small and large joints. Extremities: Homans sign absent. Intact pulses with no pitting edema, calf tenderness or skin color changes. Skin: No rash, eruptions or abnormal skin pigmentation LAB/RADIOLOGY: ASSESMENT : Status post right hemicolectomy with omentectomy. Recovering uneventful. History of hypertension PLAN: Postop care. Present on Admission - Present on Admission Any Indicators Present on Admission: No Past Patient History - Infectious Disease Hx of Infectious Diseases: None - Past Medical History & Family History Past Medical History?: Yes - Past Social History Smoking Status: Never Smoked - CARDIAC Hx Cardiac Disorders: Yes Hx Cardia Arrhythmia: Yes (H/O PALPITATIONS IN PAST.) Hx Heart Murmur: Yes Hx Hypertension: Yes Other/Comment: HEART MURMUR - HEENT Hx HEENT Problems: Yes Hx Glaucoma: Yes (LUX.) - RENAL Hx Kidney Stones: Yes - HEMATOLOGICAL/ONCOLOGICAL Hx Blood Disorders: Yes Hx Anemia: Yes Hx Blood Transfusions: No - INTEGUMENTARY Hx Dermatological Problems: Yes (LIPOMA BACK OF HEAD REMOVED) - MUSCULOSKELETAL/RHEUMATOLOGICAL Hx Musculoskeletal Disorders: Yes Hx Arthritis: Yes Hx Falls: Yes (2016 ON ICE FX. RIGHT SHOULDER) Hx Gout: Yes - GASTROINTESTINAL Hx Gastrointestinal Disorders: Yes (CONSTIPATION-HARD STOOL) Hx Bowel Surgery: Yes Hx Diverticulitis: Yes Hx Gall Bladder Disease: Yes Other/Comment: MASS COLON - SURGICAL HISTORY Hx Surgeries: Yes Hx Herniorrhaphy: Yes (RIGHT INGUINAL) Other/Comment: LIPECTOMY BACK OF HEAD - ANESTHESIA Hx Anesthesia: Yes Hx Anesthesia Reactions: No Hx Malignant Hyperthermia: No Meds Allergies/Adverse Reactions: Allergies Allergy/AdvReac Type Severity Reaction Status Date / Time iodine Allergy Mild ITCHING Verified 09/20/17 13:53 strawberry Allergy Mild ITCHING Verified 09/20/17 13:53 peaches Allergy Mild ITCHING Uncoded 09/20/17 13:53 seafood Allergy Mild ITCHING Uncoded 09/20/17 13:53 Results - Vital Signs Recent Vital Signs: Last Vital Signs Temp 97.6 F 10/19/17 06:47 Pulse 73 10/19/17 06:47 Resp 20 10/19/17 06:47 BP 166/91 H 10/19/17 06:47 Pulse Ox 97 10/19/17 06:47 - Labs Labs: Laboratory Results - last 24 hr 10/19/17 06:45 Blood Type AB POSITIVE Antibody Screen Negative
[2017-10-19] MEDS: HYDROmorphone 0.5 mg/0.5 ml ISec IVP PRN ×3 (14:05→16:50)
[2017-10-19] MEDS ORDERED: Lactated Ringer's 1,000 ML IV ONE (15:00)
[2017-10-19] MEDS: metroNIDAZOLE IV 500 mg/100 ml 500 MG/100 ML BAG IVPB SCH (16:50)
[2017-10-19] MEDS: Sodium Chloride 0.9% 1,000 ML IV SCH (21:00)
[2017-10-20] MEDS: metroNIDAZOLE IV 500 mg/100 ml 500 MG/100 ML BAG IVPB SCH ×3 (00:52→17:49)
[2017-10-20] MEDS: HYDROmorphone 0.5 mg/0.5 ml ISec IVP PRN ×2 (01:10→17:02)
[2017-10-20] MEDS: Sodium Chloride 0.9% 1,000 ML IV SCH ×3 (05:17→21:07)
[2017-10-20] MEDS ORDERED: HYDROmorphone 0.5 mg/0.5 ml ISec IVP STA (05:52)
[2017-10-20 06:34] LABS: BASO % 0.2 % (0.0-2.0); EOS % 0.5 % (0.0-4.0); HEMOGLOBIN 14.2 g/dL (12.0-18.0); LYMPH # 0.8 K/uL (1.0-4.3); LYMPH % 13.5 % (20.0-40.0); MEAN CELL VOLUME 82.3 fL (80.0-94.0); MEAN CORPUSCULAR HEMOGLOBIN 27.8 pg (27.0-31.0); MEAN CORPUSCULAR HGB CONC 33.8 g/dL (33.0-37.0); MEAN PLATELET VOLUME 9.4 fL (7.2-11.7); MONO # 0.6 K/uL (0.0-0.8); MONO % 9.7 % (0.0-10.0); NEUT # 4.6 K/uL (1.8-7.0); NEUT % 76.1 % (50.0-75.0); NRBC % 0.1 % (0.0-2.0); RBC 5.11 Mil/uL (4.40-5.90); RED CELL DISTRIBUTION WIDTH 16.8 % (11.5-14.5); WHITE BLOOD COUNT 6.1 K/uL (4.8-10.8)
--- NOTE | 2017-10-20 07:14 | OP ---
PROCEDURE DATE: 10/19/2017 PREOPERATIVE DIAGNOSES: 1. Cecal adenocarcinoma. 2. Status post interventional radiology drainage of the diverticular abscess three months ago. 3. Possible post infectious extensive adhesion. 4. Morbid obesity. POSTOPERATIVE DIAGNOSES: 1. Cecal adenocarcinoma. 2. Status post interventional radiology drainage of the diverticular abscess three months ago. 3. Possible post infectious extensive adhesion. 4. Morbid obesity. PROCEDURES DONE: 1. Robotic extended right hemicolectomy. 2. Robotic partial omentectomy. 3. Robotic extensive enterolysis and lysis of adhesion. 4. Bilateral On-Q pain catheter pump placement. SURGEON: The procedure was done by Zeb nelson MD LAUNDRY HOUSEKEEPING AIDE: DRU Solorzano; and Robby Mott, PGY-2 Resident. TYPE OF ANESTHESIA: General endotracheal tube anesthesia. ESTIMATED BLOOD LOSS: Around 50 mL. DRAINS: A 19-Macanese Felice drain was placed. COMPLICATIONS: None. INTRAOPERATIVE FINDINGS: The patient had morbid obesity and the patient also had extensive postinfectious adhesion in the right side of the abdomen due to the previous diverticular perforation and IR drainage, and due to extensive adhesion and due to enterolysis, it took approximately 100 to 120 minutes extra for the routine procedure. After complete lysis of adhesion, the ileocecal region was identified and the large thick node was also identified. DESCRIPTION OF PROCEDURE: On intraoperative steps, this is a 72-year-old male who was diagnosed with cecal adenocarcinoma, and the patient was consented for robotic right hemicolectomy with laparoscopy assistant public defender, and the patient was brought to the OR, placed supine on the operating table. After induction of anesthesia, abdomen was prepped and draped in the usual sterile fashion. Using the Visiport technique, the peritoneal cavity was entered. Pneumoperitoneum was created. Another 3/8 mm port was placed and robot was brought in. Camera arm as well as arm 1 and arm 2 was docked. The patient found to have extensive adhesion of the colon to the anterior abdominal wall, omentum to the anterior abdominal wall, omentum to the liver, the cecum to the anterior abdominal wall, and small bowel to the anterior abdominal wall, and first extensive lysis of adhesion was done. It took approximately 100 to 120 minutes extra for the routine procedure due to enterolysis and extensive lysis of adhesion, and after complete lysis of adhesion, the omentum was dissected from the transverse colon up to the hepatic flexure, and the colon was mobilized. Now, the cecum and the small bowel were mobilized, and dissection of the ileum was done at approximately 10 cm from the ileocecal junction and the transverse colon was resected on the left side without colic artery. The intension was to involve dissected polyp in the transverse colon that had negative margin with [id number], and now, the mesocolon was resected with a vessel sealer and the dissection was continued to complete the mesocolonic resection, and after that, the omentum was also resected, and now the procedure was converted to the very small open procedure to remove the specimen as well as to do the [id number] anastomosis, and after laparoscopy was recreated, and Firefly was used to know the blood supply, the patient had good blood supply and anastomosis was not in tension, and it was functioning well. After than, the 19-Macanese Felice drain was placed. The suction irrigation of the right side of the abdomen as well as the pelvic area was done, and all the fluid was suctioned out. Pneumo was deflated. All the ports were taken out. The small specimen removal site was closed in a two-layer, the fascia with #1 loop PDS as well as 0-Prolene interrupted suture and skin with the Vicryl and 4-0 Monocryl at all the port site and dry sterile dressing was applied. The patient tolerated the procedure well. Count of instrument and gauze was correct. There was no apparent complication. The patient was extubated in OR and sent to the postanesthesia care unit in a stable condition. Before closing the specimen retrieval site, the bilateral On-Q pain catheter pump was placed into the transverse abdominal muscle plane, first on the right side and then on the left side. After that, the On-Q pain catheter was connected to the pump. Count of instrument and gauze was correct. The patient was sent to the postanesthesia care unit in a stable condition. Zeb Umaña MD JERRI
[2017-10-20 08:39] LABS: BLOOD UREA NITROGEN 16 mg/dL (9-20); CALCIUM 9.2 mg/dl (8.6-10.4); GFR AFRICAN-AMERICAN > 60; GFR NON-AFRICAN AMERICAN 60
[2017-10-20] MEDS: Multiple Vitamins Tab PO SCH (10:10)
[2017-10-20] MEDS: Enoxaparin 30 mg Syringe SC SCH (10:14)
--- NOTE | 2017-10-20 13:58 | CP.PCM.PN ---
Subjective - Date & Time of Evaluation Date of Evaluation: 10/20/17 Time of Evaluation: 13:55 - Subjective Subjective: CHIEF COMPLAINTS TODAY : Postop day #1. Abdominal pain no fever ROS. HEENT : N. Resp : No cough, wheezing ,pleuritic CP ,or hemoptysis Cardio : No anginal CP, PND, orthopnea, palpitation GI : No n/v ,diarrhea or GI bleeding . DIRECTOR OF LAND ACQUISITION : No headache, vertigo, focal deficit. Musculoskel : No joint swelling , Derm : No rash Psych : Normal affect. Ext : No swelling ,calf pain PE. Pt. is alert awake in no distress. V.S As noted in the chart Head ,ear nose,throat and eyes : Normal. Neck : Supple with normal carotids. Lungs: Clear air entry. Heart : S1 & S2 normal with S4. No murmur. Abd : Soft tender with normal bowel sounds. Neuro : Moves all ext. with no localized deficit. Ext : No edema with intact pulses.Non tender calves Derm : No rashes or decubitus ulcer. LABS/RADIOLOGY: ASSESSMENT/PLAN : On liquid diet. Continue IV fluids and IV antibiotics. Continue management as per surgery. Objective - Vital Signs/Intake and Output Vital Signs (last 24 hours): Temp Pulse Resp BP Pulse Ox 98.4 F 79 20 140/96 H 99 10/20/17 08:34 10/20/17 08:34 10/20/17 08:34 10/20/17 08:34 10/20/17 08:34 Intake and Output: 10/20/17 10/20/17 11:59 23:59 Intake Total 1150 Output Total 1380 Balance -230 - Medications Medications: Current Medications Allopurinol (Zyloprim) 300 mg PO DAILY [facility] Last Admin: 10/20/17 10:11 Dose: 300 mg Amlodipine Besylate (Norvasc) 10 mg PO DAILY [facility] Last Admin: 10/20/17 10:10 Dose: 10 mg Enoxaparin Sodium (Lovenox) 30 mg SC DAILY [facility] Last Admin: 10/20/17 10:14 Dose: 30 mg Home Med (Brinzolamide/Brimonidine Tart [Simbrinza 1%-0.2% Eye Drops]) 1 drop OU DAILY [facility] Hydrochlorothiazide (Hydrodiuril) 25 mg PO DAILY [facility] Last Admin: 10/20/17 10:11 Dose: 25 mg Hydromorphone HCl (Dilaudid) 0.5 mg IVP Q3H PRN PRN Reason: Pain, severe (8-10) BUPIVACAINE 0.125%/0.9% NACL (Bupivacaine-Ns 0.125% On-Q Horticulture Worker) 600 mls @ 4 mls/ hr IJ ONCE ONE Stop: 10/25/17 19:57 Cefazolin Sodium 500 mg/ (Sodium Chloride) 100 mls @ 200 mls/hr IVPB Q8H GUME PRN Reason: Protocol Last Admin: 10/20/17 09:00 Dose: 200 mls/hr Metronidazole (Flagyl) 500 mg in 100 mls @ 100 mls/hr IVPB Q8H GUME PRN Reason: Protocol Last Admin: 10/20/17 10:22 Dose: 100 mls/hr Sodium Chloride (Sodium Chloride 0.9%) 1,000 mls @ 100 mls/hr IV .Q10H [facility] Last Admin: 10/20/17 07:05 Dose: 100 mls/hr Latanoprost (Xalatan Opht) 0 ml OU HS [facility] Multivitamins (Hexavitamin) 1 tab PO DAILY [facility] Last Admin: 10/20/17 10:10 Dose: 1 tab Ondansetron HCl (Zofran Inj) 4 mg IVP Q6 PRN PRN Reason: Nausea/Vomiting Oxycodone/Acetaminophen (Percocet 5/325 Mg Tab) 1 tab PO Q4 PRN PRN Reason: Pain, moderate (4-7) Stop: 10/22/17 13:55 - Labs Labs: 10/20/17 06:22 10/20/17 06:22
--- NOTE | 2017-10-20 14:32 | CP.PCM.PN ---
<Robby Mott - Last Filed: 10/20/17 14:30> Subjective - Date & Time of Evaluation Date of Evaluation: 10/20/17 Time of Evaluation: 14:30 - Subjective Subjective: General Surgery progress Note for Dr. Umaña This 72M was seen and examined this AM at bedside no acute events reported over night. He reports belly pain. This AM. When we entered the room he was using his incentive spirometer. He pulls 1000cc new goals set to 1250. Denies BM or flatus, Felice drain with 130cc serosanguinous output. Objective - Vital Signs/Intake and Output Vital Signs (last 24 hours): Temp Pulse Resp BP Pulse Ox 98.4 F 79 20 140/96 H 99 10/20/17 08:34 10/20/17 08:34 10/20/17 08:34 10/20/17 08:34 10/20/17 08:34 Intake and Output: 10/20/17 10/20/17 06:59 18:59 Intake Total 1900 Output Total 2230 Balance -330 - Medications Medications: Current Medications Allopurinol (Zyloprim) 300 mg PO DAILY [facility] Last Admin: 10/20/17 10:11 Dose: 300 mg Amlodipine Besylate (Norvasc) 10 mg PO DAILY [facility] Last Admin: 10/20/17 10:10 Dose: 10 mg Enoxaparin Sodium (Lovenox) 30 mg SC DAILY [facility] Last Admin: 10/20/17 10:14 Dose: 30 mg Home Med (Brinzolamide/Brimonidine Tart [Simbrinza 1%-0.2% Eye Drops]) 1 drop OU DAILY [facility] Hydrochlorothiazide (Hydrodiuril) 25 mg PO DAILY [facility] Last Admin: 10/20/17 10:11 Dose: 25 mg Hydromorphone HCl (Dilaudid) 0.5 mg IVP Q3H PRN PRN Reason: Pain, severe (8-10) BUPIVACAINE 0.125%/0.9% NACL (Bupivacaine-Ns 0.125% On-Q Regulatory Affairs Strategy Specialist) 600 mls @ 4 mls/ hr IJ ONCE ONE Stop: 10/25/17 19:57 Cefazolin Sodium 500 mg/ (Sodium Chloride) 100 mls @ 200 mls/hr IVPB Q8H GUME PRN Reason: Protocol Last Admin: 10/20/17 09:00 Dose: 200 mls/hr Metronidazole (Flagyl) 500 mg in 100 mls @ 100 mls/hr IVPB Q8H GUME PRN Reason: Protocol Last Admin: 10/20/17 10:22 Dose: 100 mls/hr Sodium Chloride (Sodium Chloride 0.9%) 1,000 mls @ 100 mls/hr IV .Q10H [facility] Last Admin: 10/20/17 07:05 Dose: 100 mls/hr Latanoprost (Xalatan Opht) 0 ml OU HS [facility] Multivitamins (Hexavitamin) 1 tab PO DAILY [facility] Last Admin: 10/20/17 10:10 Dose: 1 tab Ondansetron HCl (Zofran Inj) 4 mg IVP Q6 PRN PRN Reason: Nausea/Vomiting Oxycodone/Acetaminophen (Percocet 5/325 Mg Tab) 1 tab PO Q4 PRN PRN Reason: Pain, moderate (4-7) Stop: 10/22/17 13:55 - Labs Labs: 10/20/17 06:22 10/20/17 06:22 - Constitutional Appears: Non-toxic, No Acute Distress - Head Exam Head Exam: ATRAUMATIC, NORMOCEPHALIC - Eye Exam Eye Exam: EOMI - ENT Exam ENT Exam: Mucous Membranes Moist - Respiratory Exam Respiratory Exam: NORMAL BREATHING PATTERN - GI/Abdominal Exam GI & Abdominal Exam: Soft Additional comments: Dressing clean dry and intact felice drain with 130cc serosanguinous output Appropriately tender - Neurological Exam Neurological Exam: Alert, Awake - Psychiatric Exam Psychiatric exam: Normal Affect, Normal Mood - Skin Skin Exam: Dry, Intact Assessment and Plan - Assessment and Plan (Free Text) Assessment: 72M with adeno ca POD#1 s/p robotic extended right hemicolectomy Advance to clear liquid diet d/c abx d/c hall continue home medication out of bed d/w Dr. Leeroy Mott PGY2 <Zeb Umaña - Last Filed: 10/23/17 15:03> Objective - Vital Signs/Intake and Output Vital Signs (last 24 hours): Temp Pulse Resp BP Pulse Ox 98.2 F 85 20 175/96 H 98 10/23/17 08:33 10/23/17 08:33 10/23/17 08:33 10/23/17 08:33 10/23/17 04:15 Intake and Output: 10/23/17 10/23/17 06:59 18:59 Intake Total 1150 Output Total 1130 Balance 20 - Medications Medications: Current Medications Allopurinol (Zyloprim) 300 mg PO DAILY [facility] Last Admin: 10/23/17 10:06 Dose: 300 mg Amlodipine Besylate (Norvasc) 10 mg PO DAILY [facility] Last Admin: 10/23/17 10:06 Dose: 10 mg Brimonidine Tartrate (Alphagan 0.2% Opht) 0 ml OU DAILY [facility] Last Admin: 10/23/17 10:07 Dose: 1 drop Dorzolamide HCl (Trusopt) 0 ml OU DAILY [facility] Last Admin: 10/23/17 10:07 Dose: 1 drop Enoxaparin Sodium (Lovenox) 30 mg SC DAILY [facility] Last Admin: 10/23/17 10:06 Dose: 30 mg Hydrochlorothiazide (Hydrodiuril) 25 mg PO DAILY [facility] Last Admin: 10/23/17 10:07 Dose: 25 mg BUPIVACAINE 0.125%/0.9% NACL (Bupivacaine-Ns 0.125% On-Q Regulatory Affairs Strategy Specialist) 600 mls @ 4 mls/ hr IJ ONCE ONE Stop: 10/25/17 19:57 Potassium Chloride/Dextrose/Sod Cl (Potassium Chl 20 Meq In D5-1/2ns) 1,000 mls @ 100 mls/hr IV .Q10H [facility] Last Admin: 10/23/17 03:58 Dose: Not Given Latanoprost (Xalatan Opht) 0 ml OU HS [facility] Last Admin: 10/22/17 23:00 Dose: 2.5 ml Multivitamins (Hexavitamin) 1 tab PO DAILY [facility] Last Admin: 10/23/17 10:06 Dose: 1 tab Ondansetron HCl (Zofran Inj) 4 mg IVP Q6 PRN PRN Reason: Nausea/Vomiting Last Admin: 10/23/17 11:07 Dose: 4 mg Simethicone (Mylicon Chew Tab) 80 mg PO Q6H PRN PRN Reason: GI distress Last Admin: 10/22/17 16:24 Dose: 80 mg Tramadol HCl (Ultram) 50 mg PO TID PRN PRN Reason: Pain, moderate (4-7) Last Admin: 10/23/17 11:15 Dose: 50 mg - Labs Labs: 10/23/17 07:45 10/23/17 07:45 Attending/Attestation - Attestation I have personally seen and examined this patient.: Yes I have fully participated in the care of the patient.: Yes I have reviewed all pertinent clinical information, including history, physical exam and plan: Yes Notes (Text): Pt was seen and examined at bedside Agree with above note and assessment Pt is improving clinically C/w current mx DVT prophylaxis DC IV antibiotics and Hall OOB to walk Plan d.w pt in detail Risk and benefit explained in detail.
[2017-10-20] MEDS: Latanoprost 2.5 ml Opht Soln OU SCH (21:06)
[2017-10-21] MEDS: HYDROmorphone 0.5 mg/0.5 ml ISec IVP PRN ×5 (00:24→20:35)
[2017-10-21] MEDS: metroNIDAZOLE IV 500 mg/100 ml 500 MG/100 ML BAG IVPB SCH ×3 (00:32→16:09)
[2017-10-21] MEDS: Sodium Chloride 0.9% 1,000 ML IV SCH (04:01)
--- NOTE | 2017-10-21 08:08 | CP.PCM.PN ---
<Mayco Crawford - Last Filed: 10/21/17 08:05> Subjective - Date & Time of Evaluation Date of Evaluation: 10/21/17 Time of Evaluation: 06:40 - Subjective Subjective: General Surgery- Dr. Umaña Patient seen and examined at bedside this AM. c/o nausea, no vomiting. continued abd pain well controlled on current pain meds. self voiding. Denies flatus or BM. Felice 280cc of serosang fluid. OnQ ball in place Objective - Vital Signs/Intake and Output Vital Signs (last 24 hours): Temp Pulse Resp BP Pulse Ox 98.8 F 82 20 149/80 95 10/21/17 04:00 10/21/17 04:00 10/21/17 04:00 10/21/17 04:00 10/21/17 04:00 Intake and Output: 10/21/17 10/21/17 06:59 18:59 Intake Total 1600 Output Total 1510 Balance 90 - Medications Medications: Current Medications Allopurinol (Zyloprim) 300 mg PO DAILY [facility] Last Admin: 10/20/17 10:11 Dose: 300 mg Amlodipine Besylate (Norvasc) 10 mg PO DAILY [facility] Last Admin: 10/20/17 10:10 Dose: 10 mg Brimonidine Tartrate (Alphagan 0.2% Opht) 0 ml OU DAILY [facility] Dorzolamide HCl (Trusopt) 0 ml OU DAILY [facility] Enoxaparin Sodium (Lovenox) 30 mg SC DAILY [facility] Last Admin: 10/20/17 10:14 Dose: 30 mg Hydrochlorothiazide (Hydrodiuril) 25 mg PO DAILY [facility] Last Admin: 10/20/17 10:11 Dose: 25 mg Hydromorphone HCl (Dilaudid) 0.5 mg IVP Q3H PRN PRN Reason: Pain, severe (8-10) Last Admin: 10/21/17 03:59 Dose: 0.5 mg BUPIVACAINE 0.125%/0.9% NACL (Bupivacaine-Ns 0.125% On-Q Torch Cutter) 600 mls @ 4 mls/ hr IJ ONCE ONE Stop: 10/25/17 19:57 Cefazolin Sodium 500 mg/ (Sodium Chloride) 100 mls @ 200 mls/hr IVPB Q8H [facility] PRN Reason: Protocol Last Admin: 10/21/17 00:26 Dose: 200 mls/hr Metronidazole (Flagyl) 500 mg in 100 mls @ 100 mls/hr IVPB Q8H [facility] PRN Reason: Protocol Last Admin: 10/21/17 00:32 Dose: 100 mls/hr Sodium Chloride (Sodium Chloride 0.9%) 1,000 mls @ 100 mls/hr IV .Q10H [facility] Last Admin: 10/21/17 04:01 Dose: 100 mls/hr Latanoprost (Xalatan Opht) 0 ml OU HS [facility] Last Admin: 10/20/17 21:06 Dose: 2.5 ml Multivitamins (Hexavitamin) 1 tab PO DAILY [facility] Last Admin: 10/20/17 10:10 Dose: 1 tab Ondansetron HCl (Zofran Inj) 4 mg IVP Q6 PRN PRN Reason: Nausea/Vomiting Last Admin: 10/21/17 07:02 Dose: 4 mg Oxycodone/Acetaminophen (Percocet 5/325 Mg Tab) 1 tab PO Q4 PRN PRN Reason: Pain, moderate (4-7) Stop: 10/22/17 13:55 - Labs Labs: 10/20/17 06:22 10/20/17 06:22 - Constitutional Appears: Non-toxic, No Acute Distress - Head Exam Head Exam: ATRAUMATIC - Eye Exam Eye Exam: EOMI. absent: Scleral icterus - ENT Exam ENT Exam: Mucous Membranes Moist - Respiratory Exam Respiratory Exam: NORMAL BREATHING PATTERN. absent: Accessory Muscle Use, Respiratory Distress - Cardiovascular Exam Cardiovascular Exam: +S1, +S2. absent: Bradycardia, Tachycardia - GI/Abdominal Exam GI & Abdominal Exam: Soft, Tenderness (around incision) - Extremities Exam Extremities Exam: Normal Inspection. absent: Calf Tenderness - Neurological Exam Neurological Exam: Alert, Awake, Oriented x3 - Psychiatric Exam Psychiatric exam: Normal Affect - Skin Skin Exam: Intact, Warm Assessment and Plan - Assessment and Plan (Free Text) Assessment: 72M with adeno ca s/p robotic extended right hemicolectomy POD#2 Plan: continue CLD encourage OOB & IC use Monitor for bowel function return DVT ppx pain control & Anti-emetic PRN Discussed w/ Dr. Leeroy Crawford PGY1 <Zeb Umaña - Last Filed: 10/23/17 15:09> Objective - Vital Signs/Intake and Output Vital Signs (last 24 hours): Temp Pulse Resp BP Pulse Ox 98.2 F 85 20 175/96 H 98 10/23/17 08:33 10/23/17 08:33 10/23/17 08:33 10/23/17 08:33 10/23/17 04:15 Intake and Output: 10/23/17 10/23/17 06:59 18:59 Intake Total 1150 Output Total 1130 Balance 20 - Medications Medications: Current Medications Allopurinol (Zyloprim) 300 mg PO DAILY [facility] Last Admin: 10/23/17 10:06 Dose: 300 mg Amlodipine Besylate (Norvasc) 10 mg PO DAILY [facility] Last Admin: 10/23/17 10:06 Dose: 10 mg Brimonidine Tartrate (Alphagan 0.2% Opht) 0 ml OU DAILY [facility] Last Admin: 10/23/17 10:07 Dose: 1 drop Dorzolamide HCl (Trusopt) 0 ml OU DAILY [facility] Last Admin: 10/23/17 10:07 Dose: 1 drop Enoxaparin Sodium (Lovenox) 30 mg SC DAILY [facility] Last Admin: 10/23/17 10:06 Dose: 30 mg Hydrochlorothiazide (Hydrodiuril) 25 mg PO DAILY [facility] Last Admin: 10/23/17 10:07 Dose: 25 mg BUPIVACAINE 0.125%/0.9% NACL (Bupivacaine-Ns 0.125% On-Q Torch Cutter) 600 mls @ 4 mls/ hr IJ ONCE ONE Stop: 10/25/17 19:57 Potassium Chloride/Dextrose/Sod Cl (Potassium Chl 20 Meq In D5-1/2ns) 1,000 mls @ 100 mls/hr IV .Q10H [facility] Last Admin: 10/23/17 03:58 Dose: Not Given Latanoprost (Xalatan Opht) 0 ml OU HS [facility] Last Admin: 10/22/17 23:00 Dose: 2.5 ml Multivitamins (Hexavitamin) 1 tab PO DAILY [facility] Last Admin: 10/23/17 10:06 Dose: 1 tab Ondansetron HCl (Zofran Inj) 4 mg IVP Q6 PRN PRN Reason: Nausea/Vomiting Last Admin: 10/23/17 11:07 Dose: 4 mg Simethicone (Mylicon Chew Tab) 80 mg PO Q6H PRN PRN Reason: GI distress Last Admin: 10/22/17 16:24 Dose: 80 mg Tramadol HCl (Ultram) 50 mg PO TID PRN PRN Reason: Pain, moderate (4-7) Last Admin: 10/23/17 11:15 Dose: 50 mg - Labs Labs: 10/23/17 07:45 10/23/17 07:45 Attending/Attestation - Attestation I have personally seen and examined this patient.: Yes I have fully participated in the care of the patient.: Yes I have reviewed all pertinent clinical information, including history, physical exam and plan: Yes Notes (Text): Pt was seen and examined at bedside Agree with above note and assessment Pt is improving clinically No Gas DVT prophylaxis OOB to walk Plan d.w pt in detail Risk and benefit explained in detail.
--- NOTE | 2017-10-21 10:10 | CP.PCM.PN ---
Subjective - Date & Time of Evaluation Date of Evaluation: 10/21/17 Time of Evaluation: 10:09 - Subjective Subjective: CHIEF COMPLAINTS TODAY : Postop day # 2 Abdominal pain no fever ROS. HEENT : N. Resp : No cough, wheezing ,pleuritic CP ,or hemoptysis Cardio : No anginal CP, PND, orthopnea, palpitation GI : No n/v ,diarrhea or GI bleeding . 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 Musculoskel : No joint swelling , Derm : No rash Psych : Normal affect. Ext : No swelling ,calf pain PE. Pt. is alert awake in no distress. V.S As noted in the chart Head ,ear nose,throat and eyes : Normal. Neck : Supple with normal carotids. Lungs: Clear air entry. Heart : S1 & S2 normal with S4. No murmur. Abd : Soft tender with normal bowel sounds. Neuro : Moves all ext. with no localized deficit. Ext : No edema with intact pulses.Non tender calves Derm : No rashes or decubitus ulcer. LABS/RADIOLOGY: ASSESSMENT/PLAN : On liquid diet. Continue IV fluids and IV antibiotics. Continue management as per surgery. Objective - Vital Signs/Intake and Output Vital Signs (last 24 hours): Temp Pulse Resp BP Pulse Ox 98.8 F 82 20 188/93 H 98 10/21/17 07:30 10/21/17 07:30 10/21/17 07:30 10/21/17 07:30 10/21/17 07:30 Intake and Output: 10/20/17 10/21/17 23:59 11:59 Intake Total 2400 Output Total 2350 480 Balance 50 -480 - Medications Medications: Current Medications Allopurinol (Zyloprim) 300 mg PO DAILY [facility] Last Admin: 10/20/17 10:11 Dose: 300 mg Amlodipine Besylate (Norvasc) 10 mg PO DAILY [facility] Last Admin: 10/20/17 10:10 Dose: 10 mg Brimonidine Tartrate (Alphagan 0.2% Opht) 0 ml OU DAILY [facility] Dorzolamide HCl (Trusopt) 0 ml OU DAILY [facility] Enoxaparin Sodium (Lovenox) 30 mg SC DAILY [facility] Last Admin: 10/20/17 10:14 Dose: 30 mg Hydrochlorothiazide (Hydrodiuril) 25 mg PO DAILY [facility] Last Admin: 10/20/17 10:11 Dose: 25 mg Hydromorphone HCl (Dilaudid) 0.5 mg IVP Q3H PRN PRN Reason: Pain, severe (8-10) Last Admin: 10/21/17 08:10 Dose: 0.5 mg BUPIVACAINE 0.125%/0.9% NACL (Bupivacaine-Ns 0.125% On-Q Traffic Warehouse Supervisor) 600 mls @ 4 mls/ hr IJ ONCE ONE Stop: 10/25/17 19:57 Cefazolin Sodium 500 mg/ (Sodium Chloride) 100 mls @ 200 mls/hr IVPB Q8H [facility] PRN Reason: Protocol Last Admin: 10/21/17 08:11 Dose: 200 mls/hr Metronidazole (Flagyl) 500 mg in 100 mls @ 100 mls/hr IVPB Q8H [facility] PRN Reason: Protocol Last Admin: 10/21/17 00:32 Dose: 100 mls/hr Potassium Chloride/Dextrose/Sod Cl (Potassium Chl 20 Meq In D5-1/2ns) 1,000 mls @ 100 mls/hr IV .Q10H [facility] Latanoprost (Xalatan Opht) 0 ml OU HS [facility] Last Admin: 10/20/17 21:06 Dose: 2.5 ml Multivitamins (Hexavitamin) 1 tab PO DAILY [facility] Last Admin: 10/20/17 10:10 Dose: 1 tab Ondansetron HCl (Zofran Inj) 4 mg IVP Q6 PRN PRN Reason: Nausea/Vomiting Last Admin: 10/21/17 07:02 Dose: 4 mg Oxycodone/Acetaminophen (Percocet 5/325 Mg Tab) 1 tab PO Q4 PRN PRN Reason: Pain, moderate (4-7) Stop: 10/22/17 13:55 - Labs Labs: 10/20/17 06:22 10/20/17 06:22
[2017-10-21] MEDS: Enoxaparin 30 mg Syringe SC SCH (10:24)
[2017-10-21] MEDS: Multiple Vitamins Tab PO SCH (10:28)
[2017-10-21] MEDS: Oxycodone/Acetaminophen 5/325 mg Tab PO PRN ×2 (10:28→21:48)
[2017-10-21] MEDS: Potassium Ch 20mEq in D5-1/2NS 1,000 ML IV SCH ×2 (10:41→18:47)
[2017-10-21] MEDS: Dorzolamide 2% Opht Sol 10ml OU SCH (14:12)
[2017-10-21] MEDS: Brimonidine 0.2% Opth Sol (5ml) OU SCH ×2 (14:22→14:23)
[2017-10-21] MEDS: Latanoprost 2.5 ml Opht Soln OU SCH (21:48)
[2017-10-22] MEDS: Potassium Ch 20mEq in D5-1/2NS 1,000 ML IV SCH ×4 (00:18→16:04)
[2017-10-22] MEDS: metroNIDAZOLE IV 500 mg/100 ml 500 MG/100 ML BAG IVPB SCH ×3 (00:22→17:30)
[2017-10-22] MEDS: HYDROmorphone 0.5 mg/0.5 ml ISec IVP PRN ×2 (00:46→04:49)
[2017-10-22 04:45] LABS: BASO % 0.4 % (0.0-2.0); EOS % 0.2 % (0.0-4.0); HEMOGLOBIN 13.8 g/dL (12.0-18.0); LYMPH # 0.9 K/uL (1.0-4.3); LYMPH % 7.6 % (20.0-40.0); MEAN CELL VOLUME 82.2 fL (80.0-94.0); MEAN CORPUSCULAR HEMOGLOBIN 27.5 pg (27.0-31.0); MEAN CORPUSCULAR HGB CONC 33.4 g/dL (33.0-37.0); MEAN PLATELET VOLUME 9.1 fL (7.2-11.7); MONO % 7.7 % (0.0-10.0); NEUT # 10.4 K/uL (1.8-7.0); NEUT % 84.1 % (50.0-75.0); NRBC % 0.1 % (0.0-2.0); PLATELET COUNT 149 K/uL (130-400); RBC 5.04 Mil/uL (4.40-5.90); RED CELL DISTRIBUTION WIDTH 16.9 % (11.5-14.5); WHITE BLOOD COUNT 12.4 K/uL (4.8-10.8)
[2017-10-22] MEDS: Simethicone 80 mg Chewtab PO PRN ×2 (04:49→16:24)
[2017-10-22 05:14] LABS: LYMPHOCYTE 6 % (20-40); MONOCYTE 9 % (0-10); NEUTROPHIL 85 % (50-75); PLATELET ESTIMATE NORMAL (NORMAL); TOTAL CELLS COUNTED 100
[2017-10-22 05:18] LABS: CK-MB 1.38 ng/mL (0.0-3.38); TROPONIN I 0.026 ng/mL (0.00-0.120)
--- NOTE | 2017-10-22 05:22 | CP.PCM.PN ---
<Leeanna Allen - Last Filed: 10/22/17 06:23> Subjective - Date & Time of Evaluation Date of Evaluation: 10/22/17 Time of Evaluation: 05:19 - Subjective Subjective: General surgery progress note for Dr. Umaña-Leeanna Allen, PGY-1 Pt S & E at bedside at 0450 Pt reports one episode of epigastric "chest pain" described at feeling like he needed to blech, one episode of nausea with PO intake overnight- given Zofran as per nursing with resolution. Reports feeling need to have BM- was placed on bedpan without otuput. Pt reports that he usually takes a medicine for his heart , prescribed by Dr. Pat Li (cardiology). Denies F & C, SOB, flatus, BM. Is moving around in bed. OnQ ball in place. Felice with 240 cc serosanguinous output overnight. Afebrile overnight. Objective - Vital Signs/Intake and Output Vital Signs (last 24 hours): Temp Pulse Resp BP Pulse Ox 99.1 F 86 20 158/94 H 97 10/22/17 04:10 10/22/17 04:10 10/22/17 04:10 10/22/17 04:10 10/22/17 04:10 Intake and Output: 10/21/17 10/22/17 18:59 06:59 Intake Total 1600 Output Total 320 160 Balance 1280 -160 - Medications Medications: Current Medications Allopurinol (Zyloprim) 300 mg PO DAILY [facility] Last Admin: 10/21/17 10:23 Dose: 300 mg Amlodipine Besylate (Norvasc) 10 mg PO DAILY [facility] Last Admin: 10/21/17 10:09 Dose: 10 mg Brimonidine Tartrate (Alphagan 0.2% Opht) 0 ml OU DAILY [facility] Last Admin: 10/21/17 14:23 Dose: 1 drop Dorzolamide HCl (Trusopt) 0 ml OU DAILY [facility] Last Admin: 10/21/17 14:12 Dose: Not Given Enoxaparin Sodium (Lovenox) 30 mg SC DAILY [facility] Last Admin: 10/21/17 10:24 Dose: 30 mg Hydrochlorothiazide (Hydrodiuril) 25 mg PO DAILY [facility] Last Admin: 10/21/17 10:09 Dose: 25 mg Hydromorphone HCl (Dilaudid) 0.5 mg IVP Q3H PRN PRN Reason: Pain, severe (8-10) Last Admin: 10/22/17 04:49 Dose: 0.5 mg BUPIVACAINE 0.125%/0.9% NACL (Bupivacaine-Ns 0.125% On-Q Piece Dye Worker) 600 mls @ 4 mls/ hr IJ ONCE ONE Stop: 10/25/17 19:57 Cefazolin Sodium 500 mg/ (Sodium Chloride) 100 mls @ 200 mls/hr IVPB Q8H [facility] PRN Reason: Protocol Last Admin: 10/22/17 00:00 Dose: 200 mls/hr Metronidazole (Flagyl) 500 mg in 100 mls @ 100 mls/hr IVPB Q8H [facility] PRN Reason: Protocol Last Admin: 10/22/17 00:22 Dose: 100 mls/hr Potassium Chloride/Dextrose/Sod Cl (Potassium Chl 20 Meq In D5-1/2ns) 1,000 mls @ 100 mls/hr IV .Q10H [facility] Last Admin: 10/22/17 03:50 Dose: Not Given Latanoprost (Xalatan Opht) 0 ml OU HS [facility] Last Admin: 10/21/17 21:48 Dose: 2.5 ml Multivitamins (Hexavitamin) 1 tab PO DAILY [facility] Last Admin: 10/21/17 10:28 Dose: 1 tab Ondansetron HCl (Zofran Inj) 4 mg IVP Q6 PRN PRN Reason: Nausea/Vomiting Last Admin: 10/22/17 03:30 Dose: 4 mg Oxycodone/Acetaminophen (Percocet 5/325 Mg Tab) 1 tab PO Q4 PRN PRN Reason: Pain, moderate (4-7) Stop: 10/22/17 13:55 Last Admin: 10/21/17 21:48 Dose: 1 tab Simethicone (Mylicon Chew Tab) 80 mg PO Q6H PRN PRN Reason: GI distress Last Admin: 10/22/17 04:49 Dose: 80 mg - Labs Labs: 10/22/17 04:42 10/20/17 06:22 - Constitutional Appears: Non-toxic, No Acute Distress - Head Exam Head Exam: NORMAL INSPECTION, NORMOCEPHALIC - Eye Exam Eye Exam: Normal appearance - ENT Exam ENT Exam: Mucous Membranes Moist, Normal Exam - Neck Exam Neck Exam: Full ROM, Normal Inspection - Respiratory Exam Respiratory Exam: Accessory Muscle Use (mild), Clear to Ausculation Bilateral. absent: Chest Wall Tenderness, Rales, Rhonchi, Wheezes, Respiratory Distress, NORMAL BREATHING PATTERN - Cardiovascular Exam Cardiovascular Exam: REGULAR RHYTHM, +S1, +S2 - GI/Abdominal Exam GI & Abdominal Exam: Soft. absent: Distended, Firm, Guarding, Tenderness Additional comments: dressings in place over surgical sites- clean/dry/intact. Felice with serosanguinous output. OnQ in place - Extremities Exam Extremities Exam: Normal Inspection. absent: Pedal Edema, Tenderness - Neurological Exam Neurological Exam: Alert, Awake, CN II-XII Intact, Oriented x3 - Psychiatric Exam Psychiatric exam: Normal Affect, Normal Mood - Skin Skin Exam: Dry, Intact, Normal Color, Warm Assessment and Plan - Assessment and Plan (Free Text) Assessment: 72M w/adencarcinoma s/p robotic extended Right hemicolectomy POD#372M w/ adencarcinoma s/p robotic extended Right hemicolectomy POD#3 Plan: Cont CLD OOBTC Encourage IS use Monitor for bowel function DVT ppx pain control Anti-emetic EKG LA Blood cx Urine cx CXR Simethicone FU AM labs Will DW attending Tiffany, PGY-1 <Zeb Umaña B - Last Filed: 10/23/17 15:16> Objective - Vital Signs/Intake and Output Vital Signs (last 24 hours): Temp Pulse Resp BP Pulse Ox 98.2 F 85 20 175/96 H 98 10/23/17 08:33 10/23/17 08:33 10/23/17 08:33 10/23/17 08:33 10/23/17 04:15 Intake and Output: 10/23/17 10/23/17 06:59 18:59 Intake Total 1150 Output Total 1130 Balance 20 - Medications Medications: Current Medications Allopurinol (Zyloprim) 300 mg PO DAILY [facility] Last Admin: 10/23/17 10:06 Dose: 300 mg Amlodipine Besylate (Norvasc) 10 mg PO DAILY [facility] Last Admin: 10/23/17 10:06 Dose: 10 mg Brimonidine Tartrate (Alphagan 0.2% Opht) 0 ml OU DAILY [facility] Last Admin: 10/23/17 10:07 Dose: 1 drop Dorzolamide HCl (Trusopt) 0 ml OU DAILY [facility] Last Admin: 10/23/17 10:07 Dose: 1 drop Enoxaparin Sodium (Lovenox) 30 mg SC DAILY [facility] Last Admin: 10/23/17 10:06 Dose: 30 mg Hydrochlorothiazide (Hydrodiuril) 25 mg PO DAILY [facility] Last Admin: 10/23/17 10:07 Dose: 25 mg BUPIVACAINE 0.125%/0.9% NACL (Bupivacaine-Ns 0.125% On-Q Piece Dye Worker) 600 mls @ 4 mls/ hr IJ ONCE ONE Stop: 10/25/17 19:57 Potassium Chloride/Dextrose/Sod Cl (Potassium Chl 20 Meq In D5-1/2ns) 1,000 mls @ 100 mls/hr IV .Q10H [facility] Last Admin: 10/23/17 03:58 Dose: Not Given Latanoprost (Xalatan Opht) 0 ml OU HS [facility] Last Admin: 10/22/17 23:00 Dose: 2.5 ml Multivitamins (Hexavitamin) 1 tab PO DAILY [facility] Last Admin: 10/23/17 10:06 Dose: 1 tab Ondansetron HCl (Zofran Inj) 4 mg IVP Q6 PRN PRN Reason: Nausea/Vomiting Last Admin: 10/23/17 11:07 Dose: 4 mg Simethicone (Mylicon Chew Tab) 80 mg PO Q6H PRN PRN Reason: GI distress Last Admin: 10/22/17 16:24 Dose: 80 mg Tramadol HCl (Ultram) 50 mg PO TID PRN PRN Reason: Pain, moderate (4-7) Last Admin: 10/23/17 11:15 Dose: 50 mg - Labs Labs: 10/23/17 07:45 10/23/17 07:45 Attending/Attestation - Attestation I have fully participated in the care of the patient.: Yes I have reviewed all pertinent clinical information, including history, physical exam and plan: Yes Notes (Text): Pt is improving clinically Passing Gas, No BM Replace Potassium DVT prophylaxis OOB to walk Plan d.w pt in detail
--- NOTE | 2017-10-22 08:46 | RAD ---
HISTORY: chest pain COMPARISON: Portable chest 08/10/2017. FINDINGS: LUNGS: Right PICC is been removed. Inspiratory volume is diminished and limited patchy atelectasis or infiltrate is seen at the medial right base, borderline at the left base. PLEURA: No significant pleural effusion identified, no pneumothorax apparent. CARDIOVASCULAR: Cardiac silhouette appears moderate Brian prominent, least in part technically magnified. OSSEOUS STRUCTURES: No significant abnormalities. VISUALIZED UPPER ABDOMEN: Prominent gas and retained fecal material are is seen in the stomach or large-bowel in the upper abdomen. Consider follow-up and radiograph or CT further characterization. OTHER FINDINGS: None. IMPRESSION: Bibasilar atelectasis or infiltrates are identified with left pleural effusion not excluded. Right PICC removed in the interval. Distended bowel loops in the abdomen angelic in the stomach as well. Follow-up abdomen radiography or CT advised as clinically warranted.
[2017-10-22] MEDS: Enoxaparin 30 mg Syringe SC SCH (09:59)
[2017-10-22] MEDS: Brimonidine 0.2% Opth Sol (5ml) OU SCH (10:20)
[2017-10-22] MEDS: Multiple Vitamins Tab PO SCH (10:21)
[2017-10-22] MEDS: Dorzolamide 2% Opht Sol 10ml OU SCH (11:16)
[2017-10-22] MEDS: Oxycodone/Acetaminophen 5/325 mg Tab PO PRN (13:09)
--- NOTE | 2017-10-22 14:40 | CP.PCM.PN ---
Subjective - Date & Time of Evaluation Date of Evaluation: 10/22/17 Time of Evaluation: 14:39 - Subjective Subjective: CHIEF COMPLAINTS TODAY : Postop day # 3 Abdominal pain no fever patient has atypical chest pain this morning. Patient was evaluated by house physician. Cardiac enzymes were negative. ROS. HEENT : N. Resp : No cough, wheezing ,pleuritic CP ,or hemoptysis Cardio : No anginal CP, PND, orthopnea, palpitation GI : No n/v ,diarrhea or GI bleeding . FERN CUTTER : No headache, vertigo, focal deficit. Musculoskel : No joint swelling , Derm : No rash Psych : Normal affect. Ext : No swelling ,calf pain PE. Pt. is alert awake in no distress. V.S As noted in the chart Head ,ear nose,throat and eyes : Normal. Neck : Supple with normal carotids. Lungs: Clear air entry. Heart : S1 & S2 normal with S4. No murmur. Abd : Soft tender with normal bowel sounds. Neuro : Moves all ext. with no localized deficit. Ext : No edema with intact pulses.Non tender calves Derm : No rashes or decubitus ulcer. LABS/RADIOLOGY: ASSESSMENT/PLAN : On liquid diet. Continue IV fluids and IV antibiotics. Continue management as per surgery. Objective - Vital Signs/Intake and Output Vital Signs (last 24 hours): Temp Pulse Resp BP Pulse Ox 99.6 F 66 18 162/87 H 98 10/22/17 07:00 10/22/17 07:00 10/22/17 07:00 10/22/17 07:00 10/22/17 07:00 Intake and Output: 10/22/17 10/22/17 11:59 23:59 Output Total 260 Balance -260 - Medications Medications: Current Medications Allopurinol (Zyloprim) 300 mg PO DAILY [facility] Last Admin: 10/22/17 10:19 Dose: 300 mg Amlodipine Besylate (Norvasc) 10 mg PO DAILY [facility] Last Admin: 10/22/17 10:19 Dose: 10 mg Brimonidine Tartrate (Alphagan 0.2% Opht) 0 ml OU DAILY [facility] Last Admin: 10/22/17 10:20 Dose: 1 drop Dorzolamide HCl (Trusopt) 0 ml OU DAILY [facility] Last Admin: 10/22/17 11:16 Dose: 1 drop Enoxaparin Sodium (Lovenox) 30 mg SC DAILY [facility] Last Admin: 10/22/17 09:59 Dose: 30 mg Hydrochlorothiazide (Hydrodiuril) 25 mg PO DAILY [facility] Last Admin: 10/22/17 10:21 Dose: 25 mg Hydromorphone HCl (Dilaudid) 0.5 mg IVP Q3H PRN PRN Reason: Pain, severe (8-10) Last Admin: 10/22/17 04:49 Dose: 0.5 mg BUPIVACAINE 0.125%/0.9% NACL (Bupivacaine-Ns 0.125% On-Q Restaurant Culinary Manager) 600 mls @ 4 mls/ hr IJ ONCE ONE Stop: 10/25/17 19:57 Cefazolin Sodium 500 mg/ (Sodium Chloride) 100 mls @ 200 mls/hr IVPB Q8H [facility] PRN Reason: Protocol Last Admin: 10/22/17 08:34 Dose: 200 mls/hr Metronidazole (Flagyl) 500 mg in 100 mls @ 100 mls/hr IVPB Q8H [facility] PRN Reason: Protocol Last Admin: 10/22/17 08:59 Dose: 100 mls/hr Potassium Chloride/Dextrose/Sod Cl (Potassium Chl 20 Meq In D5-1/2ns) 1,000 mls @ 100 mls/hr IV .Q10H [facility] Last Admin: 10/22/17 03:50 Dose: Not Given Latanoprost (Xalatan Opht) 0 ml OU HS [facility] Last Admin: 10/21/17 21:48 Dose: 2.5 ml Multivitamins (Hexavitamin) 1 tab PO DAILY [facility] Last Admin: 10/22/17 10:21 Dose: 1 tab Ondansetron HCl (Zofran Inj) 4 mg IVP Q6 PRN PRN Reason: Nausea/Vomiting Last Admin: 10/22/17 09:58 Dose: 4 mg Simethicone (Mylicon Chew Tab) 80 mg PO Q6H PRN PRN Reason: GI distress Last Admin: 10/22/17 04:49 Dose: 80 mg - Labs Labs: 10/22/17 04:42 10/22/17 04:42
[2017-10-22] MEDS: Latanoprost 2.5 ml Opht Soln OU SCH (23:00)
[2017-10-23] MEDS: HYDROmorphone 0.5 mg/0.5 ml ISec IVP PRN (00:45)
[2017-10-23] MEDS: Potassium Ch 20mEq in D5-1/2NS 1,000 ML IV SCH ×4 (03:57→21:18)
--- NOTE | 2017-10-23 07:33 | CP.PCM.PN ---
<SantaAbbyTitiDeborah - Last Filed: 10/23/17 07:29> Subjective - Date & Time of Evaluation Date of Evaluation: 10/23/17 Time of Evaluation: 07:29 - Subjective Subjective: Surgery: Dr. Umaña Patient denies abdominal pain. He reports being OOB yesterday to chair with some ambulation. He denies flatus or BM. He is tolerating CLD. Pain controlled. Objective - Vital Signs/Intake and Output Vital Signs (last 24 hours): Temp Pulse Resp BP Pulse Ox 98.5 F 99 H 20 128/87 98 10/23/17 04:15 10/23/17 04:15 10/23/17 04:15 10/23/17 04:15 10/23/17 04:15 Intake and Output: 10/23/17 10/23/17 06:59 18:59 Intake Total 1150 Output Total 1130 Balance 20 - Medications Medications: Current Medications Allopurinol (Zyloprim) 300 mg PO DAILY [facility] Last Admin: 10/22/17 10:19 Dose: 300 mg Amlodipine Besylate (Norvasc) 10 mg PO DAILY [facility] Last Admin: 10/22/17 10:19 Dose: 10 mg Brimonidine Tartrate (Alphagan 0.2% Opht) 0 ml OU DAILY [facility] Last Admin: 10/22/17 10:20 Dose: 1 drop Dorzolamide HCl (Trusopt) 0 ml OU DAILY [facility] Last Admin: 10/22/17 11:16 Dose: 1 drop Enoxaparin Sodium (Lovenox) 30 mg SC DAILY [facility] Last Admin: 10/22/17 09:59 Dose: 30 mg Hydrochlorothiazide (Hydrodiuril) 25 mg PO DAILY [facility] Last Admin: 10/22/17 10:21 Dose: 25 mg Hydromorphone HCl (Dilaudid) 0.5 mg IVP Q3H PRN PRN Reason: Pain, severe (8-10) Last Admin: 10/23/17 00:45 Dose: 0.5 mg BUPIVACAINE 0.125%/0.9% NACL (Bupivacaine-Ns 0.125% On-Q Car Inspection And Repair Manager) 600 mls @ 4 mls/ hr IJ ONCE ONE Stop: 10/25/17 19:57 Potassium Chloride/Dextrose/Sod Cl (Potassium Chl 20 Meq In D5-1/2ns) 1,000 mls @ 100 mls/hr IV .Q10H [facility] Last Admin: 10/23/17 03:58 Dose: Not Given Latanoprost (Xalatan Opht) 0 ml OU HS [facility] Last Admin: 10/22/17 23:00 Dose: 2.5 ml Multivitamins (Hexavitamin) 1 tab PO DAILY [facility] Last Admin: 10/22/17 10:21 Dose: 1 tab Ondansetron HCl (Zofran Inj) 4 mg IVP Q6 PRN PRN Reason: Nausea/Vomiting Last Admin: 10/22/17 09:58 Dose: 4 mg Simethicone (Mylicon Chew Tab) 80 mg PO Q6H PRN PRN Reason: GI distress Last Admin: 10/22/17 16:24 Dose: 80 mg - Labs Labs: 10/22/17 04:42 10/22/17 04:42 - Constitutional Appears: Non-toxic, No Acute Distress - Head Exam Head Exam: ATRAUMATIC, NORMOCEPHALIC - Eye Exam Eye Exam: EOMI, Normal appearance - ENT Exam ENT Exam: Mucous Membranes Moist - Respiratory Exam Respiratory Exam: NORMAL BREATHING PATTERN. absent: Respiratory Distress - Cardiovascular Exam Cardiovascular Exam: REGULAR RHYTHM. absent: Tachycardia - GI/Abdominal Exam GI & Abdominal Exam: Soft. absent: Distended, Guarding, Tenderness, Rebound Additional comments: Felice to right LQ, SA output - Neurological Exam Neurological Exam: Alert, Awake Assessment and Plan - Assessment and Plan (Free Text) Assessment: 72 y/o male s/p right hemicolectomy POD4 Plan: -Patient needs to be OOB to chair and ambulating most of the day -He should be ambulating to bathroom to void, no urinal -IS use -cont CLD until bowel function returns -once flatus, can Advance to FLD, and once bowel movement can had soft diet -discussed in length the importance of being OOB to patient who reports understanding -cont DVT ppx -further recs per Dr. Umaña AKWhite PGY3 <Zeb Umaña - Last Filed: 10/23/17 15:16> Objective - Vital Signs/Intake and Output Vital Signs (last 24 hours): Temp Pulse Resp BP Pulse Ox 98.2 F 85 20 175/96 H 98 10/23/17 08:33 10/23/17 08:33 10/23/17 08:33 10/23/17 08:33 10/23/17 04:15 Intake and Output: 10/23/17 10/23/17 06:59 18:59 Intake Total 1150 Output Total 1130 Balance 20 - Medications Medications: Current Medications Allopurinol (Zyloprim) 300 mg PO DAILY [facility] Last Admin: 10/23/17 10:06 Dose: 300 mg Amlodipine Besylate (Norvasc) 10 mg PO DAILY [facility] Last Admin: 10/23/17 10:06 Dose: 10 mg Brimonidine Tartrate (Alphagan 0.2% Opht) 0 ml OU DAILY [facility] Last Admin: 10/23/17 10:07 Dose: 1 drop Dorzolamide HCl (Trusopt) 0 ml OU DAILY [facility] Last Admin: 10/23/17 10:07 Dose: 1 drop Enoxaparin Sodium (Lovenox) 30 mg SC DAILY [facility] Last Admin: 10/23/17 10:06 Dose: 30 mg Hydrochlorothiazide (Hydrodiuril) 25 mg PO DAILY [facility] Last Admin: 10/23/17 10:07 Dose: 25 mg BUPIVACAINE 0.125%/0.9% NACL (Bupivacaine-Ns 0.125% On-Q Car Inspection And Repair Manager) 600 mls @ 4 mls/ hr IJ ONCE ONE Stop: 10/25/17 19:57 Potassium Chloride/Dextrose/Sod Cl (Potassium Chl 20 Meq In D5-1/2ns) 1,000 mls @ 100 mls/hr IV .Q10H [facility] Last Admin: 10/23/17 03:58 Dose: Not Given Latanoprost (Xalatan Opht) 0 ml OU HS [facility] Last Admin: 10/22/17 23:00 Dose: 2.5 ml Multivitamins (Hexavitamin) 1 tab PO DAILY [facility] Last Admin: 10/23/17 10:06 Dose: 1 tab Ondansetron HCl (Zofran Inj) 4 mg IVP Q6 PRN PRN Reason: Nausea/Vomiting Last Admin: 10/23/17 11:07 Dose: 4 mg Simethicone (Mylicon Chew Tab) 80 mg PO Q6H PRN PRN Reason: GI distress Last Admin: 10/22/17 16:24 Dose: 80 mg Tramadol HCl (Ultram) 50 mg PO TID PRN PRN Reason: Pain, moderate (4-7) Last Admin: 10/23/17 11:15 Dose: 50 mg - Labs Labs: 10/23/17 07:45 10/23/17 07:45 Attending/Attestation - Attestation I have fully participated in the care of the patient.: Yes I have reviewed all pertinent clinical information, including history, physical exam and plan: Yes Notes (Text): Pt is improving clinically Passing Gas, No BM Replace Potassium DVT prophylaxis OOB to walk Plan d.w pt in detail
[2017-10-23 08:05] LABS: BASO % 0.5 % (0.0-2.0); EOS # 0.3 K/uL (0.0-0.7); EOS % 4.2 % (0.0-4.0); HEMOGLOBIN 13.2 g/dL (12.0-18.0); LYMPH # 1.1 K/uL (1.0-4.3); LYMPH % 13.5 % (20.0-40.0); MEAN CELL VOLUME 81.7 fL (80.0-94.0); MEAN CORPUSCULAR HGB CONC 34.3 g/dL (33.0-37.0); MEAN PLATELET VOLUME 10.1 fL (7.2-11.7); MONO # 0.9 K/uL (0.0-0.8); MONO % 11.4 % (0.0-10.0); NEUT # 5.7 K/uL (1.8-7.0); NEUT % 70.4 % (50.0-75.0); RBC 4.7 Mil/uL (4.40-5.90); RED CELL DISTRIBUTION WIDTH 16.4 % (11.5-14.5); WHITE BLOOD COUNT 8.1 K/uL (4.8-10.8)
[2017-10-23 08:18] LABS: ALBUMIN 2.8 g/dL (3.5-5.0); CALCIUM 8.9 mg/dl (8.6-10.4)
[2017-10-23] MEDS: Enoxaparin 30 mg Syringe SC SCH (10:06)
[2017-10-23] MEDS: Multiple Vitamins Tab PO SCH (10:06)
[2017-10-23] MEDS: Brimonidine 0.2% Opth Sol (5ml) OU SCH (10:07)
[2017-10-23] MEDS: Dorzolamide 2% Opht Sol 10ml OU SCH (10:07)
[2017-10-23] MEDS ORDERED: Potassium Chloride 20 mEq ER Tab PO ONE ×3 (15:31→20:30)
--- NOTE | 2017-10-23 15:49 | CP.PCM.PN ---
Subjective - Date & Time of Evaluation Date of Evaluation: 10/23/17 Time of Evaluation: 15:48 - Subjective Subjective: Patient still has abdominal pain because of non-movement of the bowel gas. Patient stated that he walked around to the bathroom and back. There is no flatus or BM Abdomen still distended tender Afebrile. Blood pressure elevated. Will add another blood pressure medication. Further therapy as per surgery Objective - Vital Signs/Intake and Output Vital Signs (last 24 hours): Temp Pulse Resp BP Pulse Ox 98.2 F 85 20 175/96 H 98 10/23/17 08:33 10/23/17 08:33 10/23/17 08:33 10/23/17 08:33 10/23/17 04:15 Intake and Output: 10/23/17 10/23/17 11:59 23:59 Intake Total 1280 Output Total 550 680 Balance -550 600 - Medications Medications: Current Medications Allopurinol (Zyloprim) 300 mg PO DAILY [facility] Last Admin: 10/23/17 10:06 Dose: 300 mg Amlodipine Besylate (Norvasc) 10 mg PO DAILY [facility] Last Admin: 10/23/17 10:06 Dose: 10 mg Brimonidine Tartrate (Alphagan 0.2% Opht) 0 ml OU DAILY [facility] Last Admin: 10/23/17 10:07 Dose: 1 drop Dorzolamide HCl (Trusopt) 0 ml OU DAILY [facility] Last Admin: 10/23/17 10:07 Dose: 1 drop Enoxaparin Sodium (Lovenox) 30 mg SC DAILY [facility] Last Admin: 10/23/17 10:06 Dose: 30 mg Hydrochlorothiazide (Hydrodiuril) 25 mg PO DAILY [facility] Last Admin: 10/23/17 10:07 Dose: 25 mg BUPIVACAINE 0.125%/0.9% NACL (Bupivacaine-Ns 0.125% On-Q Audio Operator) 600 mls @ 4 mls/ hr IJ ONCE ONE Stop: 10/25/17 19:57 Potassium Chloride/Dextrose/Sod Cl (Potassium Chl 20 Meq In D5-1/2ns) 1,000 mls @ 100 mls/hr IV .Q10H [facility] Last Admin: 10/23/17 03:58 Dose: Not Given Latanoprost (Xalatan Opht) 0 ml OU HS [facility] Last Admin: 10/22/17 23:00 Dose: 2.5 ml Multivitamins (Hexavitamin) 1 tab PO DAILY [facility] Last Admin: 10/23/17 10:06 Dose: 1 tab Ondansetron HCl (Zofran Inj) 4 mg IVP Q6 PRN PRN Reason: Nausea/Vomiting Last Admin: 10/23/17 11:07 Dose: 4 mg Simethicone (Mylicon Chew Tab) 80 mg PO Q6H PRN PRN Reason: GI distress Last Admin: 10/22/17 16:24 Dose: 80 mg Tramadol HCl (Ultram) 50 mg PO TID PRN PRN Reason: Pain, moderate (4-7) Last Admin: 10/23/17 11:15 Dose: 50 mg - Labs Labs: 10/23/17 07:45 10/23/17 07:45
[2017-10-23] MEDS: Latanoprost 2.5 ml Opht Soln OU SCH (21:17)
[2017-10-24] MEDS: Potassium Ch 20mEq in D5-1/2NS 1,000 ML IV SCH ×2 (02:29→22:18)
[2017-10-24 07:05] LABS: BASO % 0.5 % (0.0-2.0); EOS # 0.6 K/uL (0.0-0.7); EOS % 12.1 % (0.0-4.0); HEMOGLOBIN 12.3 g/dL (12.0-18.0); LYMPH % 19.1 % (20.0-40.0); MEAN CELL VOLUME 81.6 fL (80.0-94.0); MEAN CORPUSCULAR HEMOGLOBIN 27.5 pg (27.0-31.0); MEAN CORPUSCULAR HGB CONC 33.7 g/dL (33.0-37.0); MEAN PLATELET VOLUME 9.8 fL (7.2-11.7); MONO # 0.8 K/uL (0.0-0.8); MONO % 14.3 % (0.0-10.0); NEUT # 2.9 K/uL (1.8-7.0); NRBC % 0.1 % (0.0-2.0); RBC 4.49 Mil/uL (4.40-5.90); RED CELL DISTRIBUTION WIDTH 16.4 % (11.5-14.5); WHITE BLOOD COUNT 5.4 K/uL (4.8-10.8)
[2017-10-24 07:49] LABS: ALBUMIN 2.9 g/dL (3.5-5.0); ALT/SGPT 16 U/L (21-72); AST/SGOT 18 U/L (17-59); BLOOD UREA NITROGEN 23 mg/dL (9-20); CALCIUM 8.8 mg/dl (8.6-10.4); GFR AFRICAN-AMERICAN > 60; GFR NON-AFRICAN AMERICAN 54
--- NOTE | 2017-10-24 08:13 | CP.PCM.PN ---
<Robby Mott - Last Filed: 10/24/17 08:10> Subjective - Date & Time of Evaluation Date of Evaluation: 10/24/17 Time of Evaluation: 08:10 - Subjective Subjective: General Surgery Progress Note for Dr. Umaña This 72M was seen and evaluated this Am at bedside no acute events overnight. Pt reports BM over night and passing flatus. Denies chest pain or SOB. He report she is ambulating and tolerating his liquid diet. Objective - Vital Signs/Intake and Output Vital Signs (last 24 hours): Temp Pulse Resp BP Pulse Ox 98.2 F 85 20 113/74 98 10/24/17 02:10 10/24/17 02:10 10/24/17 02:10 10/24/17 02:10 10/24/17 02:10 Intake and Output: 10/24/17 10/24/17 06:59 18:59 Intake Total 500 Output Total 480 Balance 20 - Medications Medications: Current Medications Allopurinol (Zyloprim) 300 mg PO DAILY [facility] Last Admin: 10/23/17 10:06 Dose: 300 mg Amlodipine Besylate (Norvasc) 10 mg PO DAILY [facility] Last Admin: 10/23/17 10:06 Dose: 10 mg Brimonidine Tartrate (Alphagan 0.2% Opht) 0 ml OU DAILY [facility] Last Admin: 10/23/17 10:07 Dose: 1 drop Dorzolamide HCl (Trusopt) 0 ml OU DAILY [facility] Last Admin: 10/23/17 10:07 Dose: 1 drop Enoxaparin Sodium (Lovenox) 30 mg SC DAILY [facility] Last Admin: 10/23/17 10:06 Dose: 30 mg Hydrochlorothiazide (Hydrodiuril) 25 mg PO DAILY [facility] Last Admin: 10/23/17 10:07 Dose: 25 mg BUPIVACAINE 0.125%/0.9% NACL (Bupivacaine-Ns 0.125% On-Q Bending Roll Hand) 600 mls @ 4 mls/ hr IJ ONCE ONE Stop: 10/25/17 19:57 Potassium Chloride/Dextrose/Sod Cl (Potassium Chl 20 Meq In D5-1/2ns) 1,000 mls @ 50 mls/hr IV .Q20H [facility] Last Admin: 10/24/17 02:29 Dose: 50 mls/hr Latanoprost (Xalatan Opht) 0 ml OU HS [facility] Last Admin: 10/23/17 21:17 Dose: 1 ml Losartan Potassium (Cozaar) 50 mg PO DAILY [facility] Last Admin: 10/23/17 16:32 Dose: 50 mg Multivitamins (Hexavitamin) 1 tab PO DAILY [facility] Last Admin: 10/23/17 10:06 Dose: 1 tab Ondansetron HCl (Zofran Inj) 4 mg IVP Q6 PRN PRN Reason: Nausea/Vomiting Last Admin: 10/24/17 02:29 Dose: 4 mg Pantoprazole Sodium (Protonix Inj) 40 mg IVP DAILY [facility] Last Admin: 10/23/17 17:11 Dose: 40 mg Simethicone (Mylicon Chew Tab) 80 mg PO Q6H PRN PRN Reason: GI distress Last Admin: 10/22/17 16:24 Dose: 80 mg Tramadol HCl (Ultram) 50 mg PO TID PRN PRN Reason: Pain, moderate (4-7) Last Admin: 10/23/17 16:27 Dose: 50 mg - Labs Labs: 10/24/17 07:01 10/24/17 07:01 - Constitutional Appears: Non-toxic, No Acute Distress - Head Exam Head Exam: ATRAUMATIC, NORMOCEPHALIC - Eye Exam Eye Exam: EOMI - ENT Exam ENT Exam: Mucous Membranes Moist - Respiratory Exam Respiratory Exam: NORMAL BREATHING PATTERN - Cardiovascular Exam Cardiovascular Exam: +S1, +S2 - GI/Abdominal Exam GI & Abdominal Exam: Soft. absent: Distended, Guarding, Rigid, Tenderness Additional comments: Dressinngs removed this AM. Steristrips in place incisions well approximated non draining. - Neurological Exam Neurological Exam: Alert, Awake - Psychiatric Exam Psychiatric exam: Normal Affect, Normal Mood - Skin Skin Exam: Dry, Intact Assessment and Plan - Assessment and Plan (Free Text) Assessment: 72M POD#5 s/p extended right hemicolectomy Vital signs stable Bowel Function returned Labs Grossly normal Plan: -Ambulate -Incentive Spirometry -Regular Diet -cont DVT ppx -D/W Dr. Karla Mott PGY2 <Zeb Umaña - Last Filed: 10/28/17 18:05> Objective - Vital Signs/Intake and Output Vital Signs (last 24 hours): Temp Pulse Resp BP Pulse Ox 98.0 F 84 18 132/90 97 10/26/17 07:00 10/26/17 07:00 10/26/17 07:00 10/26/17 07:00 10/26/17 07:00 - Labs Labs: 10/26/17 06:26 10/26/17 06:26 Attending/Attestation - Attestation I have personally seen and examined this patient.: Yes I have fully participated in the care of the patient.: Yes I have reviewed all pertinent clinical information, including history, physical exam and plan: Yes Notes (Text): Pt is seen and examined at bedside Agree with above note and assessment Pt is improving clinically Replace K+ Hypokalemia C/w clear liquid diet Plan d.w pt in detail Risk and benefit explained in detail.
[2017-10-24] MEDS: Multiple Vitamins Tab PO SCH (10:11)
[2017-10-24] MEDS: Enoxaparin 30 mg Syringe SC SCH (10:12)
[2017-10-24] MEDS: Brimonidine 0.2% Opth Sol (5ml) OU SCH (10:13)
[2017-10-24] MEDS: Dorzolamide 2% Opht Sol 10ml OU SCH (10:13)
--- NOTE | 2017-10-24 14:54 | CP.PCM.PN ---
Subjective - Date & Time of Evaluation Date of Evaluation: 10/24/17 Time of Evaluation: 14:52 - Subjective Subjective: CHIEF COMPLAINTS TODAY : ROS. HEENT : N. Resp : No cough, wheezing ,pleuritic CP ,or hemoptysis Cardio : No anginal CP, PND, orthopnea, palpitation GI : No n/v ,diarrhea or GI bleeding . 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 Musculoskel : No joint swelling , Derm : No rash Psych : Normal affect. Ext : No swelling ,calf pain PE. Pt. is alert awake in no distress. V.S As noted in the chart Head ,ear nose,throat and eyes : Normal. Neck : Supple with normal carotids. Lungs: Clear air entry. Heart : S1 & S2 normal with S4. No murmur. Abd : Soft tender with normal bowel sounds. Neuro : Moves all ext. with no localized deficit. Ext : No edema with intact pulses.Non tender calves Derm : No rashes or decubitus ulcer. LABS/RADIOLOGY: ASSESSMENT/PLAN : Postop day #5 Patient is complaining of abdominal pain with distention sometime radiating to chest. Urine shows Pseudomonas, will get ID evaluation for antibiotics Patient had a 1 BM which was black, today's hemoglobin is 12.8 Continue postop care Objective - Vital Signs/Intake and Output Vital Signs (last 24 hours): Temp Pulse Resp BP Pulse Ox 98.1 F 82 18 103/67 98 10/24/17 07:30 10/24/17 07:30 10/24/17 07:30 10/24/17 07:30 10/24/17 07:30 Intake and Output: 10/24/17 10/24/17 11:59 23:59 Intake Total 500 Output Total 480 Balance 20 - Medications Medications: Current Medications Allopurinol (Zyloprim) 300 mg PO DAILY [facility] Last Admin: 10/24/17 10:11 Dose: 300 mg Amlodipine Besylate (Norvasc) 10 mg PO DAILY [facility] Last Admin: 10/24/17 10:11 Dose: 10 mg Brimonidine Tartrate (Alphagan 0.2% Opht) 0 ml OU DAILY [facility] Last Admin: 10/24/17 10:13 Dose: 1 drop Dorzolamide HCl (Trusopt) 0 ml OU DAILY [facility] Last Admin: 10/24/17 10:13 Dose: 1 drop Enoxaparin Sodium (Lovenox) 30 mg SC DAILY [facility] Last Admin: 10/24/17 10:12 Dose: 30 mg Hydrochlorothiazide (Hydrodiuril) 25 mg PO DAILY [facility] Last Admin: 10/24/17 10:13 Dose: 25 mg BUPIVACAINE 0.125%/0.9% NACL (Bupivacaine-Ns 0.125% On-Q Director Hedis) 600 mls @ 4 mls/ hr IJ ONCE ONE Stop: 10/25/17 19:57 Potassium Chloride/Dextrose/Sod Cl (Potassium Chl 20 Meq In D5-1/2ns) 1,000 mls @ 50 mls/hr IV .Q20H [facility] Last Admin: 10/24/17 02:29 Dose: 50 mls/hr Latanoprost (Xalatan Opht) 0 ml OU HS [facility] Last Admin: 10/23/17 21:17 Dose: 1 ml Losartan Potassium (Cozaar) 50 mg PO DAILY [facility] Last Admin: 10/24/17 10:11 Dose: 50 mg Multivitamins (Hexavitamin) 1 tab PO DAILY [facility] Last Admin: 10/24/17 10:11 Dose: 1 tab Ondansetron HCl (Zofran Inj) 4 mg IVP Q6 PRN PRN Reason: Nausea/Vomiting Last Admin: 10/24/17 12:38 Dose: 4 mg Pantoprazole Sodium (Protonix Inj) 40 mg IVP DAILY [facility] Last Admin: 10/24/17 10:12 Dose: 40 mg Simethicone (Mylicon Chew Tab) 80 mg PO Q6H PRN PRN Reason: GI distress Last Admin: 10/22/17 16:24 Dose: 80 mg Tramadol HCl (Ultram) 50 mg PO TID PRN PRN Reason: Pain, moderate (4-7) Last Admin: 10/23/17 16:27 Dose: 50 mg - Labs Labs: 10/24/17 07:01 10/24/17 07:01
--- NOTE | 2017-10-24 17:57 | CP.PCM.CON ---
History of Present Illness - History of Present Illness History of Present Illness: INFECTIOUS DISEASE CONSULT; [id number] male with history of diabetes mellitus, hypertension, gout, chronic renal insufficiency, history of urolithiasis who is admitted on 10/19/17 for elective right hemicolectomy for adeno CA of the colon. Patient underwent laparoscopic robotic-assisted right extended hemicolectomy/ omentectomy and lysis of adhesions on 10/20/17. Postoperatively patient developed urosepsis with pseudomonas aeruginosa. PATIENT WAS RUNNING LOW-GRADE TEMPT POST OPERATIVELY. Patient complains of some postoperative pain at the site of surgery and still has Josue-Castro with serosanguineous drainage. Patient denies any fever or chills, nausea vomiting or diarrhea. INFECTIOUS DISEASE CONSULTATION REQUESTED BY PMD FOR urosepsis with pseudomonas aeruginosa postoperatively. PMH; HTN, DM-2, GOUT, CRI, HX OF UROLITHIASIS, CIRRHOSIS OF LIVER. SH; FORMER SMOKER, DENIES DRINKING OR SUBSTANCE ABUSE . USED TO DRINK HEAVILY BEFORE FH ; NONCONTRIBUTORY. ALLERGY; NKA Review of Systems - Constitutional Constitutional: Fever. absent: Chills - EENT Nose/Mouth/Throat: Dry Mouth. absent: Mouth Lesions - Cardiovascular Cardiovascular: Pedal Edema. absent: Chest Pain, Dyspnea - Respiratory Respiratory: absent: Cough, Hemoptysis - Gastrointestinal Gastrointestinal: Abdominal Pain (POST-OPERATIVE SITE.). absent: Diarrhea, Nausea, Vomiting - Genitourinary Genitourinary: Urinary Frequency, Urinary Hesitance - Neurological Neurological: absent: Headaches - Hematologic/Lymphatic Hematologic: As Per HPI. absent: Easy Bleeding, Easy Bruising, Lymphadenopathy Past Patient History - Infectious Disease Hx of Infectious Diseases: None - Past Medical History & Family History Past Medical History?: Yes - Past Social History Smoking Status: Former Smoker - CARDIAC Hx Cardiac Disorders: Yes Hx Hypertension: Yes - PULMONARY Hx Respiratory Disorders: No - NEUROLOGICAL Hx Neurological Disorder: No - HEENT Hx HEENT Problems: Yes Hx Cataracts: Yes (LEFT) - RENAL Hx Chronic Kidney Disease: Yes Hx Kidney Stones: Yes - ENDOCRINE/METABOLIC Hx Endocrine Disorders: No - HEMATOLOGICAL/ONCOLOGICAL Hx Blood Disorders: Yes Hx Anemia: Yes Hx Blood Transfusions: No - INTEGUMENTARY Hx Dermatological Problems: Yes (LIPOMA BACK OF HEAD REMOVED) - MUSCULOSKELETAL/RHEUMATOLOGICAL Hx Arthritis: Yes Hx Rheumatoid Arthritis: Yes - GASTROINTESTINAL Hx Gastrointestinal Disorders: Yes (CONSTIPATION-HARD STOOL) Hx Bowel Surgery: Yes Hx Diverticulitis: Yes Hx Gall Bladder Disease: Yes Other/Comment: MASS COLON - PSYCHIATRIC Hx Psychophysiologic Disorder: No Hx Substance Use: No - SURGICAL HISTORY Hx Surgeries: Yes Hx Cholecystectomy: Yes Hx Herniorrhaphy: Yes (RIGHT INGUINAL) Other/Comment: LIPECTOMY BACK OF HEAD - ANESTHESIA Hx Anesthesia: Yes Hx Anesthesia Reactions: No Hx Malignant Hyperthermia: No Meds Allergies/Adverse Reactions: Allergies Allergy/AdvReac Type Severity Reaction Status Date / Time iodine Allergy Mild ITCHING Verified 09/20/17 13:53 strawberry Allergy Mild ITCHING Verified 09/20/17 13:53 peaches Allergy Mild ITCHING Uncoded 09/20/17 13:53 seafood Allergy Mild ITCHING Uncoded 09/20/17 13:53 - Medications Medications: Current Medications Allopurinol (Zyloprim) 300 mg PO DAILY [facility] Last Admin: 10/24/17 10:11 Dose: 300 mg Amlodipine Besylate (Norvasc) 10 mg PO DAILY [facility] Last Admin: 10/24/17 10:11 Dose: 10 mg Brimonidine Tartrate (Alphagan 0.2% Opht) 0 ml OU DAILY [facility] Last Admin: 10/24/17 10:13 Dose: 1 drop Dorzolamide HCl (Trusopt) 0 ml OU DAILY [facility] Last Admin: 10/24/17 10:13 Dose: 1 drop Enoxaparin Sodium (Lovenox) 30 mg SC DAILY [facility] Last Admin: 10/24/17 10:12 Dose: 30 mg Hydrochlorothiazide (Hydrodiuril) 25 mg PO DAILY [facility] Last Admin: 10/24/17 10:13 Dose: 25 mg BUPIVACAINE 0.125%/0.9% NACL (Bupivacaine-Ns 0.125% On-Q Ehr Trainer) 600 mls @ 4 mls/ hr IJ ONCE ONE Stop: 10/25/17 19:57 Potassium Chloride/Dextrose/Sod Cl (Potassium Chl 20 Meq In D5-1/2ns) 1,000 mls @ 50 mls/hr IV .Q20H [facility] Last Admin: 10/24/17 02:29 Dose: 50 mls/hr Cefepime HCl 1 gm/ Dextrose 50 mls @ 100 mls/hr IVPB Q12H [facility] PRN Reason: Protocol Latanoprost (Xalatan Opht) 0 ml OU HS [facility] Last Admin: 10/23/17 21:17 Dose: 1 ml Losartan Potassium (Cozaar) 50 mg PO DAILY [facility] Last Admin: 10/24/17 10:11 Dose: 50 mg Multivitamins (Hexavitamin) 1 tab PO DAILY [facility] Last Admin: 10/24/17 10:11 Dose: 1 tab Ondansetron HCl (Zofran Inj) 4 mg IVP Q6 PRN PRN Reason: Nausea/Vomiting Last Admin: 10/24/17 12:38 Dose: 4 mg Pantoprazole Sodium (Protonix Inj) 40 mg IVP DAILY [facility] Last Admin: 10/24/17 10:12 Dose: 40 mg Simethicone (Mylicon Chew Tab) 80 mg PO Q6H PRN PRN Reason: GI distress Last Admin: 10/22/17 16:24 Dose: 80 mg Tramadol HCl (Ultram) 50 mg PO TID PRN PRN Reason: Pain, moderate (4-7) Last Admin: 10/23/17 16:27 Dose: 50 mg Physical Exam - Constitutional Appears: No Acute Distress - Head Exam Head Exam: NORMAL INSPECTION - Eye Exam Eye Exam: EOMI, PERRL. absent: Scleral icterus - ENT Exam ENT Exam: absent: Normal Oropharynx - Respiratory Exam Respiratory Exam: Clear to Auscultation Bilateral - Cardiovascular Exam Cardiovascular Exam: REGULAR RHYTHM, +S1, +S2 - GI/Abdominal Exam GI & Abdominal Exam: Hypoactive Bowel Sounds, Soft, Tenderness (POST OPERATIVE SITE.) - Extremities Exam Extremities exam: Positive for: pedal edema (1+), pedal pulses present. Negative for: calf tenderness - Neurological Exam Neurological exam: Alert, CN II-XII Intact, Oriented x3, Reflexes Normal - Psychiatric Exam Psychiatric exam: Normal Mood - Skin Skin Exam: Normal Color, Warm Results - Vital Signs Recent Vital Signs: Last Vital Signs Temp 98.1 F 10/24/17 07:30 Pulse 82 10/24/17 07:30 Resp 18 10/24/17 07:30 BP 103/67 10/24/17 07:30 Pulse Ox 98 10/24/17 07:30 - Labs Result Diagrams: 10/24/17 07:01 10/24/17 07:01 Labs: Laboratory Results - last 24 hr 05/28/18 05/28/18 07:01 07:01 WBC 5.4 RBC 4.49 Hgb 12.3 Hct 36.6 MCV 81.6 MCH 27.5 MCHC 33.7 RDW 16.4 H Plt Count 144 MPV 9.8 Neut % (Auto) 54.0 Lymph % (Auto) 19.1 L [place] % (Auto) 14.3 H Eos % (Auto) 12.1 H Baso % (Auto) 0.5 Neut # (Auto) 2.9 Lymph # (Auto) 1.0 [place] # (Auto) 0.8 Eos # (Auto) 0.6 Baso # (Auto) 0.0 Sodium 132 Potassium 3.6 Chloride 102 Carbon Dioxide 22 Anion Gap 12 BUN 23 H Creatinine 1.3 Est GFR ( Amer) > 60 Est GFR (Non-Af Amer) 54 Random Glucose 96 Calcium 8.8 Total Bilirubin 0.6 AST 18 ALT 16 L Alkaline Phosphatase 51 Total Protein 5.9 L Albumin 2.9 L Globulin 3.0 Albumin/Globulin Ratio 1.0 - Imaging and Cardiology Chest x-ray Status: Report reviewed by me (CXR 10/22/17 RIGHT picc LINE REMOVE, BY BASILAR ATELECTASIS OR INFILTRATES WITH LEFT PLEURAL EFFUSION. dISTENDED BOWEL LOOPS.) Assessment & Plan (1) H/O right hemicolectomy Assessment and Plan: s/p right hemicolectomy 10/20/17. Postoperative day #4. Patient has right Josue-Castro draining serosanguineous drainage. Labs reviewed WBC 5.4 Creatinine 1.3/BUN 23. Chest x-ray 10/22/17 noted by basilar atelectasis/or infiltrative disease with left pleural effusion Distended bowel loops. Patient started with regular diet as per surgery today. Status: Acute (2) UTI (urinary tract infection) Assessment and Plan: urine culture positive for pseudomonas aeruginosa 10/22/17 Sensitive to cefepime/Cipro. Start IV cefepime 1 g every 12 hourly for now. 10/24/17. Repeat UA urine culture in 1-2 days. Status: Acute (3) Abdominal pain Assessment and Plan: postoperative wound okay Mild postoperative pain. Status: Acute (4) Diabetes mellitus Status: Acute (5) Hypertension Status: Acute (6) Renal insufficiency Assessment and Plan: BUN 23/ creatinine 1.3 improving Status: Chronic
[2017-10-24] MEDS: Latanoprost 2.5 ml Opht Soln OU SCH (22:19)
[2017-10-25] MEDS: Potassium Ch 20mEq in D5-1/2NS 1,000 ML IV SCH (01:29)
[2017-10-25 07:27] LABS: BASO % 0.4 % (0.0-2.0); EOS # 0.5 K/uL (0.0-0.7); EOS % 9.3 % (0.0-4.0); HEMOGLOBIN 11.7 g/dL (12.0-18.0); LYMPH # 1.1 K/uL (1.0-4.3); LYMPH % 19.9 % (20.0-40.0); MEAN CELL VOLUME 82.3 fL (80.0-94.0); MEAN CORPUSCULAR HEMOGLOBIN 27.8 pg (27.0-31.0); MEAN CORPUSCULAR HGB CONC 33.7 g/dL (33.0-37.0); MEAN PLATELET VOLUME 9.9 fL (7.2-11.7); MONO # 0.7 K/uL (0.0-0.8); MONO % 13.2 % (0.0-10.0); NEUT # 3.2 K/uL (1.8-7.0); NEUT % 57.2 % (50.0-75.0); NRBC % 0.4 % (0.0-2.0); RBC 4.22 Mil/uL (4.40-5.90); RED CELL DISTRIBUTION WIDTH 16.2 % (11.5-14.5); WHITE BLOOD COUNT 5.6 K/uL (4.8-10.8)
[2017-10-25 07:50] LABS: ALB/GLOB RATIO 0.9 (1.0-2.1); ALBUMIN 2.5 g/dL (3.5-5.0); ALT/SGPT 20 U/L (21-72); AST/SGOT 19 U/L (17-59); BILIRUBIN,DIRECT 0.3 mg/dL (0.0-0.4); BLOOD UREA NITROGEN 23 mg/dL (9-20); CALCIUM 9.1 mg/dl (8.6-10.4); GFR AFRICAN-AMERICAN > 60; GFR NON-AFRICAN AMERICAN 54
--- NOTE | 2017-10-25 08:06 | CP.PCM.PN ---
<Mayco Crawford - Last Filed: 10/25/17 08:03> Subjective - Date & Time of Evaluation Date of Evaluation: 10/25/17 Time of Evaluation: 06:30 - Subjective Subjective: Surgery- Dr. Umaña Patient seen and examined at bedside this AM. Tolerating current diet. Passing flatus and + BM. +OOB to chair. Felice 150cc of serosang fluid. Denies fevers, chills, chest pain, shortness of breath Objective - Vital Signs/Intake and Output Vital Signs (last 24 hours): Temp Pulse Resp BP Pulse Ox 98.6 F 93 H 20 125/82 98 10/25/17 04:00 10/25/17 04:00 10/25/17 04:00 10/25/17 04:00 10/25/17 04:00 Intake and Output: 10/25/17 10/25/17 06:59 18:59 Intake Total 200 Output Total 520 Balance -320 - Medications Medications: Current Medications Allopurinol (Zyloprim) 300 mg PO DAILY [facility] Last Admin: 10/24/17 10:11 Dose: 300 mg Amlodipine Besylate (Norvasc) 10 mg PO DAILY [facility] Last Admin: 10/24/17 10:11 Dose: 10 mg Brimonidine Tartrate (Alphagan 0.2% Opht) 0 ml OU DAILY [facility] Last Admin: 10/24/17 10:13 Dose: 1 drop Dorzolamide HCl (Trusopt) 0 ml OU DAILY [facility] Last Admin: 10/24/17 10:13 Dose: 1 drop Enoxaparin Sodium (Lovenox) 30 mg SC DAILY [facility] Last Admin: 10/24/17 10:12 Dose: 30 mg Hydrochlorothiazide (Hydrodiuril) 25 mg PO DAILY [facility] Last Admin: 10/24/17 10:13 Dose: 25 mg BUPIVACAINE 0.125%/0.9% NACL (Bupivacaine-Ns 0.125% On-Q Integrated [employer] Design Engineer) 600 mls @ 4 mls/ hr IJ ONCE ONE Stop: 10/25/17 19:57 Cefepime HCl 1 gm/ Dextrose 50 mls @ 100 mls/hr IVPB Q12H [facility] PRN Reason: Protocol Last Admin: 10/25/17 05:21 Dose: 100 mls/hr Latanoprost (Xalatan Opht) 0 ml OU HS [facility] Last Admin: 10/24/17 22:19 Dose: 2.5 ml Losartan Potassium (Cozaar) 50 mg PO DAILY [facility] Last Admin: 10/24/17 10:11 Dose: 50 mg Multivitamins (Hexavitamin) 1 tab PO DAILY [facility] Last Admin: 10/24/17 10:11 Dose: 1 tab Ondansetron HCl (Zofran Inj) 4 mg IVP Q6 PRN PRN Reason: Nausea/Vomiting Last Admin: 10/24/17 12:38 Dose: 4 mg Pantoprazole Sodium (Protonix Inj) 40 mg IVP DAILY [facility] Last Admin: 10/24/17 10:12 Dose: 40 mg Simethicone (Mylicon Chew Tab) 80 mg PO Q6H PRN PRN Reason: GI distress Last Admin: 10/22/17 16:24 Dose: 80 mg Tramadol HCl (Ultram) 50 mg PO TID PRN PRN Reason: Pain, moderate (4-7) Last Admin: 10/25/17 05:25 Dose: 50 mg - Labs Labs: 10/25/17 07:01 10/25/17 07:01 - Constitutional Appears: Non-toxic, No Acute Distress, Older Than Stated Age - Head Exam Head Exam: ATRAUMATIC - Eye Exam Eye Exam: EOMI. absent: Scleral icterus - ENT Exam ENT Exam: Mucous Membranes Moist Additional comments: poor dentition - Respiratory Exam Respiratory Exam: NORMAL BREATHING PATTERN. absent: Accessory Muscle Use, Respiratory Distress - Cardiovascular Exam Cardiovascular Exam: +S1, +S2. absent: Bradycardia, Tachycardia - GI/Abdominal Exam GI & Abdominal Exam: Soft, Tenderness (mild tenderness around incision). absent : Distended, Firm, Guarding, Rigid, Hernia, Mass, Rebound Additional comments: incisions C/D/I steri-strips on - Neurological Exam Neurological Exam: Alert, Awake, Oriented x3 - Psychiatric Exam Psychiatric exam: Normal Affect - Skin Skin Exam: Intact, Warm Assessment and Plan - Assessment and Plan (Free Text) Assessment: 72M s/p extended R. Hemicolectomy POD#6 Plan: - Continue regular diet - encourage OOB and IC use - continue Abx per ID - Social work consult for possible [facility] placement - anti-emetic and pain control PRN - discussed w/ Dr. Umaña surgical attending PGY1 <Zeb Umaña - Last Filed: 10/28/17 18:19> Objective - Vital Signs/Intake and Output Vital Signs (last 24 hours): Temp Pulse Resp BP Pulse Ox 98.0 F 84 18 132/90 97 10/26/17 07:00 10/26/17 07:00 10/26/17 07:00 10/26/17 07:00 10/26/17 07:00 - Labs Labs: 10/26/17 06:26 10/26/17 06:26 Attending/Attestation - Attestation I have personally seen and examined this patient.: Yes I have fully participated in the care of the patient.: Yes I have reviewed all pertinent clinical information, including history, physical exam and plan: Yes Notes (Text): Pt is seen and examined at bedside Agree with above note and assessment Pt is improving clinically Replace Potassium OOB to walk Advance diet as tolerated c.w current mx Plan d.w pt in detail Risk and benefit explained in detail.
[2017-10-25] MEDS: Enoxaparin 30 mg Syringe SC SCH (10:43)
[2017-10-25] MEDS: Multiple Vitamins Tab PO SCH (10:43)
[2017-10-25] MEDS: Dorzolamide 2% Opht Sol 10ml OU SCH (10:43)
[2017-10-25] MEDS: Brimonidine 0.2% Opth Sol (5ml) OU SCH (10:44)
--- NOTE | 2017-10-25 13:38 | CP.PCM.PN ---
Subjective - Date & Time of Evaluation Date of Evaluation: 10/25/17 Time of Evaluation: 13:37 - Subjective Subjective: CHIEF COMPLAINTS TODAY : AFEBRILE, FEELING BETTER, tolerating diet. states no hesitancy of urine today ROS. HEENT : N. Resp : No cough, wheezing ,pleuritic CP ,or hemoptysis Cardio : No anginal CP, PND, orthopnea, palpitation GI : No n/v ,diarrhea or GI bleeding . 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 Musculoskel : No joint swelling , Derm : No rash Psych : Normal affect. Ext : No swelling ,calf pain PE. Pt. is alert awake in no distress. V.S As noted in the chart Head ,ear nose,throat and eyes : Normal. Neck : Supple with normal carotids. Lungs: Clear air entry. Heart : S1 & S2 normal with S4. No murmur. Abd : Soft POST-OPERATIVE +VE HOMERO DRAIN +SEROSANGUINOUS DRAINAGE. BS +VE Neuro : Moves all ext. with no localized deficit. Ext : No edema with intact pulses.Non tender calves Derm : No rashes or decubitus ulcer. LABS/RADIOLOGY: CREAT 1.3 WBC 5.3 ASSESSMENT. ADENO CA -COLON S/P RT HEMICOLECTOMY-POD # 6 DM-TYPE 2. [id number]. RENAL INSUFFICIENCY. /PLAN : CONTINUE IV CEFEPIME 1GM IVPB [id number] 10/24/17 X 7DAYS POST OPT . CARE PER SURGERY. PT FOR [facility] IN AM. Objective - Vital Signs/Intake and Output Vital Signs (last 24 hours): Temp Pulse Resp BP Pulse Ox 98.0 F 86 20 117/77 96 10/25/17 08:54 10/25/17 08:54 10/25/17 08:54 10/25/17 08:54 10/25/17 08:54 Intake and Output: 10/25/17 10/25/17 06:59 18:59 Intake Total 200 Output Total 520 Balance -320 - Medications Medications: Current Medications Allopurinol (Zyloprim) 300 mg PO DAILY [facility] Last Admin: 10/25/17 10:44 Dose: 300 mg Amlodipine Besylate (Norvasc) 10 mg PO DAILY [facility] Last Admin: 10/25/17 10:43 Dose: 10 mg Brimonidine Tartrate (Alphagan 0.2% Opht) 0 ml OU DAILY [facility] Last Admin: 10/25/17 10:44 Dose: 1 drop Dorzolamide HCl (Trusopt) 0 ml OU DAILY [facility] Last Admin: 10/25/17 10:43 Dose: 1 drop Enoxaparin Sodium (Lovenox) 30 mg SC DAILY [facility] Last Admin: 10/25/17 10:43 Dose: 30 mg Hydrochlorothiazide (Hydrodiuril) 25 mg PO DAILY [facility] Last Admin: 10/25/17 10:43 Dose: 25 mg BUPIVACAINE 0.125%/0.9% NACL (Bupivacaine-Ns 0.125% On-Q Manager Of Information) 600 mls @ 4 mls/ hr IJ ONCE ONE Stop: 10/25/17 19:57 Cefepime HCl 1 gm/ Dextrose 50 mls @ 100 mls/hr IVPB Q12H [facility]S [facility] PRN Reason: Protocol Last Admin: 10/25/17 05:21 Dose: 100 mls/hr Latanoprost (Xalatan Opht) 0 ml OU HS [facility] 234 [facility]S [facility] Last Admin: 10/24/17 22:19 Dose: 2.5 ml Losartan Potassium (Cozaar) 50 mg PO DAILY [facility] Last Admin: 10/25/17 10:43 Dose: 50 mg Multivitamins (Hexavitamin) 1 tab PO DAILY [facility] Last Admin: 10/25/17 10:43 Dose: 1 tab Ondansetron HCl (Zofran Inj) 4 mg IVP Q6 PRN PRN Reason: Nausea/Vomiting Last Admin: 10/24/17 12:38 Dose: 4 mg Pantoprazole Sodium (Protonix Inj) 40 mg IVP DAILY [facility] Last Admin: 10/25/17 10:43 Dose: 40 mg Simethicone (Mylicon Chew Tab) 80 mg PO Q6H PRN PRN Reason: GI distress Last Admin: 10/22/17 16:24 Dose: 80 mg Tramadol HCl (Ultram) 50 mg PO TID PRN PRN Reason: Pain, moderate (4-7) Last Admin: 10/25/17 05:25 Dose: 50 mg - Labs Labs: 10/25/17 07:01 10/25/17 07:01 Assessment and Plan (1) H/O right hemicolectomy Status: Acute (2) UTI (urinary tract infection) Status: Acute (3) Abdominal pain Status: Acute (4) Diabetes mellitus Status: Acute (5) Hypertension Status: Acute (6) Renal insufficiency Status: Chronic
--- NOTE | 2017-10-25 14:11 | CP.PCM.DIS ---
Provider - Provider Date of Admission: 10/19/17 06:02 Attending physician: Zeb Umaña MD Time Spent in preparation of Discharge (in minutes): 35 Hospital Course - Lab Results Lab Results: Micro Results 10/22/17 06:00 Blood-Venous Blood Culture - Preliminary NO GROWTH AFTER 3 DAYS 10/22/17 06:40 Blood-Venous Blood Culture - Preliminary NO GROWTH AFTER 3 DAYS 10/22/17 20:01 Urine,Clean Catch Urine Culture - Final Pseudomonas Aeruginosa Most Recent Lab Values WBC 5.6 K/uL (4.8-10.8) 10/25/17 07:01 RBC 4.22 Mil/uL (4.40-5.90) L 10/25/17 07:01 Hgb 11.7 g/dL (12.0-18.0) L 10/25/17 07:01 Hct 34.7 % (35.0-51.0) L 10/25/17 07:01 MCV 82.3 fL (80.0-94.0) 10/25/17 07:01 MCH 27.8 pg (27.0-31.0) 10/25/17 07:01 MCHC 33.7 g/dL (33.0-37.0) 10/25/17 07:01 RDW 16.2 % (11.5-14.5) H 10/25/17 07:01 Plt Count 156 K/uL (130-400) 10/25/17 07:01 MPV 9.9 fL (7.2-11.7) 10/25/17 07:01 Neut % (Auto) 57.2 % (50.0-75.0) 10/25/17 07:01 Lymph % (Auto) 19.9 % (20.0-40.0) L 10/25/17 07:01 [place] % (Auto) 13.2 % (0.0-10.0) H 10/25/17 07:01 Eos % (Auto) 9.3 % (0.0-4.0) H 10/25/17 07:01 Baso % (Auto) 0.4 % (0.0-2.0) 10/25/17 07:01 Neut # (Auto) 3.2 K/uL (1.8-7.0) 10/25/17 07:01 Lymph # (Auto) 1.1 K/uL (1.0-4.3) 10/25/17 07:01 [place] # (Auto) 0.7 K/uL (0.0-0.8) 10/25/17 07:01 Eos # (Auto) 0.5 K/uL (0.0-0.7) 10/25/17 07:01 Baso # (Auto) 0.0 K/uL (0.0-0.2) 10/25/17 07:01 Neutrophils % (Manual) 85 % (50-75) H 10/22/17 04:42 Lymphocytes % (Manual) 6 % (20-40) L 10/22/17 04:42 Monocytes % (Manual) 9 % (0-10) 10/22/17 04:42 Platelet Estimate Normal (NORMAL) 10/22/17 04:42 Sodium 132 mmol/L (132-148) 10/25/17 07:01 Potassium 3.6 mmol/L (3.6-5.2) 10/25/17 07:01 Chloride 103 mmol/L (98-107) 10/25/17 07:01 Carbon Dioxide 23 mmol/L (22-30) 10/25/17 07:01 Anion Gap 10 (10-20) 10/25/17 07:01 BUN 23 mg/dL (9-20) H 10/25/17 07:01 Creatinine 1.3 mg/dL (0.8-1.5) 10/25/17 07:01 Est GFR ( Amer) > 60 10/25/17 07:01 Est GFR (Non-Af Amer) 54 10/25/17 07:01 Random Glucose 99 mg/dL (75-110) 10/25/17 07:01 Calcium 9.1 mg/dl (8.6-10.4) 10/25/17 07:01 Total Bilirubin 0.5 mg/dL (0.2-1.3) 10/25/17 07:01 Direct Bilirubin 0.3 mg/dL (0.0-0.4) 10/25/17 07:01 AST 19 U/L (17-59) 10/25/17 07:01 ALT 20 U/L (21-72) L D 10/25/17 07:01 Alkaline Phosphatase 51 U/L (38-126) 10/25/17 07:01 Total Creatine Kinase 226 U/L (55-170) H 10/22/17 04:42 CK-MB (Mass) 1.38 ng/mL (0.0-3.38) 10/22/17 04:42 Troponin I 0.0260 ng/mL (0.00-0.120) 10/22/17 04:42 Total Protein 5.2 g/dL (6.3-8.3) L 10/25/17 07:01 Albumin 2.5 g/dL (3.5-5.0) L 10/25/17 07:01 Globulin 2.7 gm/dL (2.2-3.9) 10/25/17 07:01 Albumin/Globulin Ratio 0.9 (1.0-2.1) L 10/25/17 07:01 Blood Type AB POSITIVE 10/19/17 06:45 Antibody Screen Negative 10/19/17 06:45 - Hospital Course Hospital Course: Patient is admitted for right hemicolectomy for adeno CA of the colon. Patient currently is status post surgery. PAST HIST. Patient had a history of diverticulitis with microperforation. Patient received IV antibiotics for 3 weeks and a repeat CAT scan showed a possible mass in the right ascending colon. Subsequently patient went to colonoscopy and the biopsy showed adenocarcinoma. Currently patient has gone for right hemicolectomy. Patient has history of hypertension. Recent cardiac workup has been negative for any major ischemic heart disease. Patient underwent right hemicolectomy. Postoperatively patient had some abdominal distention and atypical chest pain. There was no fever or any positive cardiac enzymes. Patient improved on ambulation. Urine showed Pseudomonas ID consult was obtained and patient is on IV antibiotics. Currently patient is stable for discharge to rehab where further treatment will be carried out. Discharge Exam - Head Exam Head Exam: ATRAUMATIC Discharge Plan - Follow Up Plan Condition: GOOD Disposition: HOME/ ROUTINE
[2017-10-25] MEDS: Latanoprost 2.5 ml Opht Soln OU SCH (22:24)
[2017-10-26 06:37] LABS: BASO % 0.2 % (0.0-2.0); EOS # 0.5 K/uL (0.0-0.7); EOS % 7.4 % (0.0-4.0); HEMOGLOBIN 11.3 g/dL (12.0-18.0); LYMPH # 1.1 K/uL (1.0-4.3); LYMPH % 16.9 % (20.0-40.0); MEAN CELL VOLUME 82.7 fL (80.0-94.0); MEAN CORPUSCULAR HEMOGLOBIN 27.9 pg (27.0-31.0); MEAN CORPUSCULAR HGB CONC 33.8 g/dL (33.0-37.0); MEAN PLATELET VOLUME 9.7 fL (7.2-11.7); MONO # 0.7 K/uL (0.0-0.8); MONO % 11.6 % (0.0-10.0); NEUT % 63.9 % (50.0-75.0); NRBC % 0.2 % (0.0-2.0); RBC 4.04 Mil/uL (4.40-5.90); RED CELL DISTRIBUTION WIDTH 16.5 % (11.5-14.5); WHITE BLOOD COUNT 6.2 K/uL (4.8-10.8)
[2017-10-26 06:55] LABS: ALT/SGPT 10 U/L (21-72); AST/SGOT 30 U/L (17-59); BLOOD UREA NITROGEN 19 mg/dL (9-20); CALCIUM 9.1 mg/dl (8.6-10.4); GFR AFRICAN-AMERICAN > 60; GFR NON-AFRICAN AMERICAN 54
[2017-10-26 07:57] VITALS: BP 132/90; PULSE 84; RESP 18; TEMP 98; O2SAT 97
--- NOTE | 2017-10-26 10:35 | CP.PCM.PN ---
Subjective - Date & Time of Evaluation Date of Evaluation: 10/26/17 Time of Evaluation: 10:35 - Subjective Subjective: PT CLEARED FOR D/C TO [facility] TODAY PER DR. HENDRICKSON AND DR. PLASENCIA. PT TO F/U WITH SURGERY IN 1 WEEK IN OFFICE. ALSO DISCUSSED D/C PLAN WITH DR. JOHNSON AND SHE RECOMMENDS TO CONTINUE IV CEFEPIME X6 DAYS. PT TO BE FOLLOWED BY Yamile HENDRICKSON WHILE AT [facility]. DISCUSSED D/C WITH PT AND HE IS IN AGREEMENT. SW TO ARRANGE TRANSPORTATION. NO FURTHER ORDERS. -PLACE UNDER THE SERVICE OF DR. HENDRICKSON WHILE AT [facility]---CALL DR. HENDRICKSON UPON ARRIVAL FOR ADMITTING ORDERS AND BED ASSIGNMENT. -FOLLOW UP WITH DR. PLASENCIA (SURGEON) IN THE OFFICE IN 1 WEEK--PLEASE CALL THE OFFICE TO MAKE THE APPOINTMENT AND MAKE ALL TRANSPORTATION ARRANGEMENTS FROM [facility] AND BACK. -PLEASE NOTE, MR. MCLAUGHLIN HAS AN APPT ALREADY ARRANGED WITH DR. Albert BECKER IN HIS OFFICE ON 11/02/17 AT 3:30 PM. -CONTINUE ALL MEDICATIONS PER THE MED REC FORM---CHANGES CAN BE MADE BY ATTENDING. -PER ID (DR. Latonya JOHNSON), CONTINUE ANTIBIOTICS FOLLOWS: CEFEPIME 1 GM IV Q12 HOURS X6 DAYS (START ON 09/29/17 AND LAST DOSE TO BE GIVEN DURING THE EVENING OF 10/31/17). -CHANGE HEPLOCK NEEDED UNTIL IV ANTIBIOTICS ARE COMPETED. -PHYSICAL THERAPY TOLERATED. -FOR FURTHER ORDERS, CONTACT DR. HENDRICKSON'S OFFICE. Objective - Vital Signs/Intake and Output Vital Signs (last 24 hours): Temp Pulse Resp BP Pulse Ox 98.0 F 84 18 132/90 97 10/26/17 07:00 10/26/17 07:00 10/26/17 07:00 10/26/17 07:00 10/26/17 07:00 Intake and Output: 10/26/17 10/26/17 06:59 18:59 Intake Total 1000 Output Total 850 Balance 150 - Medications Medications: Current Medications Allopurinol (Zyloprim) 300 mg PO DAILY [facility] Last Admin: 10/25/17 10:44 Dose: 300 mg Amlodipine Besylate (Norvasc) 10 mg PO DAILY [facility] Last Admin: 10/25/17 10:43 Dose: 10 mg Brimonidine Tartrate (Alphagan 0.2% Opht) 0 ml OU DAILY [facility] Last Admin: 10/25/17 10:44 Dose: 1 drop Dorzolamide HCl (Trusopt) 0 ml OU DAILY [facility] Last Admin: 10/25/17 10:43 Dose: 1 drop Enoxaparin Sodium (Lovenox) 30 mg SC DAILY [facility] Last Admin: 10/25/17 10:43 Dose: 30 mg Hydrochlorothiazide (Hydrodiuril) 25 mg PO DAILY [facility] Last Admin: 10/25/17 10:43 Dose: 25 mg Cefepime HCl 1 gm/ Dextrose 50 mls @ 100 mls/hr IVPB Q12H [facility] PRN Reason: Protocol Last Admin: 10/26/17 05:39 Dose: 100 mls/hr Latanoprost (Xalatan Opht) 0 ml OU HS [facility] Last Admin: 10/25/17 22:24 Dose: 2.5 ml Losartan Potassium (Cozaar) 50 mg PO DAILY [facility] Last Admin: 10/25/17 10:43 Dose: 50 mg Multivitamins (Hexavitamin) 1 tab PO DAILY [facility] Last Admin: 10/25/17 10:43 Dose: 1 tab Ondansetron HCl (Zofran Inj) 4 mg IVP Q6 PRN PRN Reason: Nausea/Vomiting Last Admin: 10/24/17 12:38 Dose: 4 mg Pantoprazole Sodium (Protonix Inj) 40 mg IVP DAILY [facility] Last Admin: 10/25/17 10:43 Dose: 40 mg Simethicone (Mylicon Chew Tab) 80 mg PO Q6H PRN PRN Reason: GI distress Last Admin: 10/22/17 16:24 Dose: 80 mg Tramadol HCl (Ultram) 50 mg PO TID PRN PRN Reason: Pain, moderate (4-7) Last Admin: 10/26/17 00:13 Dose: 50 mg - Labs Labs: 10/26/17 06:26 10/26/17 06:26
--- NOTE | 2017-10-26 11:00 | CP.PCM.PN ---
<Robby Mott - Last Filed: 10/26/17 10:57> Subjective - Date & Time of Evaluation Date of Evaluation: 10/26/17 Time of Evaluation: 10:57 - Subjective Subjective: General Surgery Progress Note for Dr. Umaña This 72M was seen and evaluated this AM at bedside. No acute events overnight. Tolerating diet. Ambulating denies and SOB or chest pain. He reports he is ready to be discharged to rehab. Objective - Vital Signs/Intake and Output Vital Signs (last 24 hours): Temp Pulse Resp BP Pulse Ox 98.0 F 84 18 132/90 97 10/26/17 07:00 10/26/17 07:00 10/26/17 07:00 10/26/17 07:00 10/26/17 07:00 Intake and Output: 10/26/17 10/26/17 06:59 18:59 Intake Total 1000 Output Total 850 Balance 150 - Medications Medications: Current Medications Allopurinol (Zyloprim) 300 mg PO DAILY [facility] Last Admin: 10/25/17 10:44 Dose: 300 mg Amlodipine Besylate (Norvasc) 10 mg PO DAILY [facility] Last Admin: 10/25/17 10:43 Dose: 10 mg Brimonidine Tartrate (Alphagan 0.2% Opht) 0 ml OU DAILY [facility] Last Admin: 10/25/17 10:44 Dose: 1 drop Dorzolamide HCl (Trusopt) 0 ml OU DAILY [facility] Last Admin: 10/25/17 10:43 Dose: 1 drop Enoxaparin Sodium (Lovenox) 30 mg SC DAILY [facility] Last Admin: 10/25/17 10:43 Dose: 30 mg Hydrochlorothiazide (Hydrodiuril) 25 mg PO DAILY [facility] Last Admin: 10/25/17 10:43 Dose: 25 mg Cefepime HCl 1 gm/ Dextrose 50 mls @ 100 mls/hr IVPB Q12H [facility] PRN Reason: Protocol Last Admin: 10/26/17 05:39 Dose: 100 mls/hr Latanoprost (Xalatan Opht) 0 ml OU HS [facility] Last Admin: 10/25/17 22:24 Dose: 2.5 ml Losartan Potassium (Cozaar) 50 mg PO DAILY [facility] Last Admin: 10/25/17 10:43 Dose: 50 mg Multivitamins (Hexavitamin) 1 tab PO DAILY [facility] Last Admin: 10/25/17 10:43 Dose: 1 tab Ondansetron HCl (Zofran Inj) 4 mg IVP Q6 PRN PRN Reason: Nausea/Vomiting Last Admin: 10/24/17 12:38 Dose: 4 mg Pantoprazole Sodium (Protonix Inj) 40 mg IVP DAILY [facility] Last Admin: 10/25/17 10:43 Dose: 40 mg Simethicone (Mylicon Chew Tab) 80 mg PO Q6H PRN PRN Reason: GI distress Last Admin: 10/22/17 16:24 Dose: 80 mg Tramadol HCl (Ultram) 50 mg PO TID PRN PRN Reason: Pain, moderate (4-7) Last Admin: 10/26/17 00:13 Dose: 50 mg - Labs Labs: 10/26/17 06:26 10/26/17 06:26 - Constitutional Appears: Non-toxic, No Acute Distress - Head Exam Head Exam: ATRAUMATIC - Eye Exam Eye Exam: EOMI. - ENT Exam ENT Exam: Mucous Membranes Moist Additional comments: poor dentition - Respiratory Exam Respiratory Exam: NORMAL BREATHING PATTERN. absent: Accessory Muscle Use, Respiratory Distress - Cardiovascular Exam Cardiovascular Exam: +S1, +S2. absent: Bradycardia, Tachycardia - GI/Abdominal Exam GI & Abdominal Exam: Soft, Tenderness (mild tenderness around incision). absent : Distended, Firm, Guarding, Rigid, Hernia, Mass, Rebound Additional comments: Incisions well aproximated, non draining non erythematous steri-strips on - Neurological Exam Neurological Exam: Alert, Awake, Oriented x3 - Psychiatric Exam Psychiatric exam: Normal Affect - Skin Skin Exam: Intact, Warm Assessment and Plan - Assessment and Plan (Free Text) Assessment: 72M s/p extended R. Hemicolectomy POD#7 Plan: - Continue regular diet - encourage OOB and IC use - continue Abx per ID - Possible d/c to [facility] today D/W Dr. Leeroy Mott PGY2 <Zeb Umaña - Last Filed: 10/28/17 18:32> Objective - Vital Signs/Intake and Output Vital Signs (last 24 hours): Temp Pulse Resp BP Pulse Ox 98.0 F 84 18 132/90 97 10/26/17 07:00 10/26/17 07:00 10/26/17 07:00 10/26/17 07:00 10/26/17 07:00 - Labs Labs: 10/26/17 06:26 10/26/17 06:26 Attending/Attestation - Attestation I have personally seen and examined this patient.: Yes I have fully participated in the care of the patient.: Yes I have reviewed all pertinent clinical information, including history, physical exam and plan: Yes Notes (Text): Pt is seen and examined at bedside Agree with above note and assessment Pt is improved clinically On antibiotics for UTI Can be DC to rehab Plan d.w pt in detail Risk and benefit explained in detail.
[2017-10-26] MEDS: Multiple Vitamins Tab PO SCH (11:03)
[2017-10-26] MEDS: Enoxaparin 30 mg Syringe SC SCH (11:03)
[2017-10-26] MEDS: Brimonidine 0.2% Opth Sol (5ml) OU SCH (11:06)
[2017-10-26] MEDS: Dorzolamide 2% Opht Sol 10ml OU SCH (11:07)
--- NOTE | 2017-10-26 12:11 | CP.PCM.PN ---
Subjective - Date & Time of Evaluation Date of Evaluation: 10/26/17 Time of Evaluation: 12:11 - Subjective Subjective: CHIEF COMPLAINTS TODAY : AFEBRILE, FEELING BETTER, tolerating diet. no new complaints states no hesitancy of urine today ROS. HEENT : N. Resp : No cough, wheezing ,pleuritic CP ,or hemoptysis Cardio : No anginal CP, PND, orthopnea, palpitation GI : No n/v ,diarrhea or GI bleeding . 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 Musculoskel : No joint swelling , Derm : No rash Psych : Normal affect. Ext : No swelling ,calf pain PE. Pt. is alert awake in no distress. V.S As noted in the chart Head ,ear nose,throat and eyes : Normal. Neck : Supple with normal carotids. Lungs: Clear air entry. Heart : S1 & S2 normal with S4. No murmur. Abd : Soft POST-OPERATIVE +VE HOMERO DRAIN +SEROSANGUINOUS DRAINAGE. BS +VE Neuro : Moves all ext. with no localized deficit. Ext : No edema with intact pulses.Non tender calves Derm : No rashes or decubitus ulcer. LABS/RADIOLOGY: CREAT 1.3 WBC 5.3 ASSESSMENT. ADENO CA -COLON S/P RT HEMICOLECTOMY-POD # 6 DM-TYPE 2. [id number]. RENAL INSUFFICIENCY. /PLAN : CONTINUE IV CEFEPIME 1GM IVPB [id number] 10/24/17 X 6 DAYS more POST OPT . CARE PER SURGERY. PT FOR [facility] IN AM. Objective - Vital Signs/Intake and Output Vital Signs (last 24 hours): Temp Pulse Resp BP Pulse Ox 98.0 F 84 18 132/90 97 10/26/17 07:00 10/26/17 07:00 10/26/17 07:00 10/26/17 07:00 10/26/17 07:00 Intake and Output: 10/26/17 10/26/17 06:59 18:59 Intake Total 1000 Output Total 850 Balance 150 - Medications Medications: Current Medications Allopurinol (Zyloprim) 300 mg PO DAILY [facility] Last Admin: 10/26/17 11:03 Dose: 300 mg Amlodipine Besylate (Norvasc) 10 mg PO DAILY [facility] Last Admin: 10/26/17 11:02 Dose: 10 mg Brimonidine Tartrate (Alphagan 0.2% Opht) 0 ml OU DAILY [facility] Last Admin: 10/26/17 11:06 Dose: 1 drop Dorzolamide HCl (Trusopt) 0 ml OU DAILY [facility] Last Admin: 10/26/17 11:07 Dose: 1 drop Enoxaparin Sodium (Lovenox) 30 mg SC DAILY [facility] Last Admin: 10/26/17 11:03 Dose: 30 mg Hydrochlorothiazide (Hydrodiuril) 25 mg PO DAILY [facility] Last Admin: 10/26/17 11:03 Dose: 25 mg Cefepime HCl 1 gm/ Dextrose 50 mls @ 100 mls/hr IVPB Q12H [facility] PRN Reason: Protocol Last Admin: 10/26/17 05:39 Dose: 100 mls/hr Latanoprost (Xalatan Opht) 0 ml OU HS [facility] Last Admin: 10/25/17 22:24 Dose: 2.5 ml Losartan Potassium (Cozaar) 50 mg PO DAILY [facility] Last Admin: 10/26/17 11:10 Dose: 50 mg Multivitamins (Hexavitamin) 1 tab PO DAILY [facility] Last Admin: 10/26/17 11:03 Dose: 1 tab Ondansetron HCl (Zofran Inj) 4 mg IVP Q6 PRN PRN Reason: Nausea/Vomiting Last Admin: 10/24/17 12:38 Dose: 4 mg Pantoprazole Sodium (Protonix Inj) 40 mg IVP DAILY [facility] Last Admin: 10/26/17 11:03 Dose: 40 mg Simethicone (Mylicon Chew Tab) 80 mg PO Q6H PRN PRN Reason: GI distress Last Admin: 10/22/17 16:24 Dose: 80 mg Tramadol HCl (Ultram) 50 mg PO TID PRN PRN Reason: Pain, moderate (4-7) Last Admin: 10/26/17 00:13 Dose: 50 mg - Labs Labs: 10/26/17 06:26 10/26/17 06:26 Assessment and Plan (1) H/O right hemicolectomy Status: Acute (2) UTI (urinary tract infection) Status: Acute (3) Abdominal pain Status: Acute (4) Diabetes mellitus Status: Acute (5) Hypertension Status: Acute (6) Renal insufficiency Status: Chronic
--- NOTE | 2017-10-26 14:17 | CP.PCM.DIS ---
Provider - Provider Date of Admission: 10/19/17 06:02 Attending physician: Zeb Plasencia MD Time Spent in preparation of Discharge (in minutes): 35 Hospital Course - Lab Results Lab Results: Micro Results 10/22/17 06:00 Blood-Venous Blood Culture - Preliminary NO GROWTH AFTER 4 DAYS 10/22/17 06:40 Blood-Venous Blood Culture - Preliminary NO GROWTH AFTER 4 DAYS 10/22/17 20:01 Urine,Clean Catch Urine Culture - Final Pseudomonas Aeruginosa Most Recent Lab Values WBC 6.2 K/uL (4.8-10.8) 10/26/17 06:26 RBC 4.04 Mil/uL (4.40-5.90) L 10/26/17 06:26 Hgb 11.3 g/dL (12.0-18.0) L 10/26/17 06:26 Hct 33.4 % (35.0-51.0) L 10/26/17 06:26 MCV 82.7 fL (80.0-94.0) 10/26/17 06:26 MCH 27.9 pg (27.0-31.0) 10/26/17 06:26 MCHC 33.8 g/dL (33.0-37.0) 10/26/17 06:26 RDW 16.5 % (11.5-14.5) H 10/26/17 06:26 Plt Count 183 K/uL (130-400) 10/26/17 06:26 MPV 9.7 fL (7.2-11.7) 10/26/17 06:26 Neut % (Auto) 63.9 % (50.0-75.0) 10/26/17 06:26 Lymph % (Auto) 16.9 % (20.0-40.0) L 10/26/17 06:26 [place] % (Auto) 11.6 % (0.0-10.0) H 10/26/17 06:26 Eos % (Auto) 7.4 % (0.0-4.0) H 10/26/17 06:26 Baso % (Auto) 0.2 % (0.0-2.0) 10/26/17 06:26 Neut # (Auto) 4.0 K/uL (1.8-7.0) 10/26/17 06:26 Lymph # (Auto) 1.1 K/uL (1.0-4.3) 10/26/17 06:26 [place] # (Auto) 0.7 K/uL (0.0-0.8) 10/26/17 06:26 Eos # (Auto) 0.5 K/uL (0.0-0.7) 10/26/17 06:26 Baso # (Auto) 0.0 K/uL (0.0-0.2) 10/26/17 06:26 Neutrophils % (Manual) 85 % (50-75) H 10/22/17 04:42 Lymphocytes % (Manual) 6 % (20-40) L 10/22/17 04:42 Monocytes % (Manual) 9 % (0-10) 10/22/17 04:42 Platelet Estimate Normal (NORMAL) 10/22/17 04:42 Sodium 133 mmol/L (132-148) 10/26/17 06:26 Potassium 3.7 mmol/L (3.6-5.2) 10/26/17 06:26 Chloride 102 mmol/L (98-107) 10/26/17 06:26 Carbon Dioxide 22 mmol/L (22-30) 10/26/17 06:26 Anion Gap 12 (10-20) 10/26/17 06:26 BUN 19 mg/dL (9-20) 10/26/17 06:26 Creatinine 1.3 mg/dL (0.8-1.5) 10/26/17 06:26 Est GFR ( Amer) > 60 10/26/17 06:26 Est GFR (Non-Af Amer) 54 10/26/17 06:26 Random Glucose 95 mg/dL (75-110) 10/26/17 06:26 Calcium 9.1 mg/dl (8.6-10.4) 10/26/17 06:26 Total Bilirubin 0.6 mg/dL (0.2-1.3) 10/26/17 06:26 Direct Bilirubin 0.3 mg/dL (0.0-0.4) 10/25/17 07:01 AST 30 U/L (17-59) 10/26/17 06:26 ALT 10 U/L (21-72) L D 10/26/17 06:26 Alkaline Phosphatase 53 U/L (38-126) 10/26/17 06:26 Total Creatine Kinase 226 U/L (55-170) H 10/22/17 04:42 CK-MB (Mass) 1.38 ng/mL (0.0-3.38) 10/22/17 04:42 Troponin I 0.0260 ng/mL (0.00-0.120) 10/22/17 04:42 Total Protein 6.1 g/dL (6.3-8.3) L 10/26/17 06:26 Albumin 3.0 g/dL (3.5-5.0) L 10/26/17 06:26 Globulin 3.1 gm/dL (2.2-3.9) 10/26/17 06:26 Albumin/Globulin Ratio 1.0 (1.0-2.1) 10/26/17 06:26 Blood Type AB POSITIVE 10/19/17 06:45 Antibody Screen Negative 10/19/17 06:45 - Hospital Course Hospital Course: Patient is admitted for right hemicolectomy for adeno CA of the colon. Patient currently is status post surgery. PAST HIST. Patient had a history of diverticulitis with microperforation. Patient received IV antibiotics for 3 weeks and a repeat CAT scan showed a possible mass in the right ascending colon. Subsequently patient went to colonoscopy and the biopsy showed adenocarcinoma. Currently patient has gone for right hemicolectomy. Patient has history of hypertension. Recent cardiac workup has been negative for any major ischemic heart disease. Patient underwent right hemicolectomy. Postoperatively patient had some abdominal distention and atypical chest pain. There was no fever or any positive cardiac enzymes. Patient improved on ambulation. Urine showed Pseudomonas ID consult was obtained and patient is on IV antibiotics. Currently patient is stable for discharge to rehab where further treatment will be carried out. PATIENT HAD TO STAY AN EXTRA DAY IN THE HOSPITAL DUE TO NON-AVAILABILITY OF BED IN THE [facility] Discharge Exam - Head Exam Head Exam: ATRAUMATIC Discharge Plan - Follow Up Plan Condition: GOOD Disposition: HOME/ ROUTINE Instructions: Urinary Tract Infection, Adult (DC), Colectomy, Laparoscopic Surgery, Managing Pain After Surgery Additional Instructions: -PLACE UNDER THE SERVICE OF DR. JONES WHILE AT [facility]---CALL DR. JONES UPON ARRIVAL FOR ADMITTING ORDERS AND BED ASSIGNMENT. -FOLLOW UP WITH DR. PLASENCIA (SURGEON) IN THE OFFICE IN 1 WEEK--PLEASE CALL THE OFFICE TO MAKE THE APPOINTMENT AND MAKE ALL TRANSPORTATION ARRANGEMENTS FROM [facility] AND BACK. -PLEASE NOTE, MR. MCLAUGHLIN HAS AN APPT ALREADY ARRANGED WITH DR. Albert BECKER IN HIS OFFICE ON 11/02/17 AT 3:30 PM. -CONTINUE ALL MEDICATIONS PER THE MED REC FORM---CHANGES CAN BE MADE BY ATTENDING. -PER ID (DR. Latonya ISRAEL), CONTINUE ANTIBIOTICS FOLLOWS: CEFEPIME 1 GM IV Q12 HOURS X6 DAYS (START ON 09/29/17 AND LAST DOSE TO BE GIVEN DURING THE EVENING OF 10/31/17). -CHANGE HEPLOCK NEEDED UNTIL IV ANTIBIOTICS ARE COMPETED. -PHYSICAL THERAPY TOLERATED. -FOR FURTHER ORDERS, CONTACT DR. JONES'S OFFICE. Referrals: Maddy Israel MD [Staff Provider] - Fabio Jones MD [Family Provider] - Zeb Plasencia MD [Staff Provider] -
--- NOTE | 2017-10-28 06:24 | CARD ---
APPROVED REPORT EKG Measurement Heart [id number] <Conclusion> Sinus rhythm VPB Possible Anterior infarct, age undetermined Abnormal ECG
== END 2017-10-26 14:33 | DRG 330 ==
LOC: C.9S 06:02 → EDSTATUS 07:30 → C.6T 17:04
PROVIDERS: ADMIT Surgery Surgical Critical Care; ATTEND Surgery Surgical Critical Care
PROC: 0DNU4ZZ Release Omentum, Percutaneous Endoscopic Approach (ICD-10-PCS; 2017-10-19)
PROC: 0DNH4ZZ Release Cecum, Percutaneous Endoscopic Approach (ICD-10-PCS; 2017-10-19)
PROC: 0DNB4ZZ Release Ileum, Percutaneous Endoscopic Approach (ICD-10-PCS; 2017-10-19)
PROC: 0DTU4ZZ Resection of Omentum, Percutaneous Endoscopic Approach (ICD-10-PCS; 2017-10-19)
PROC: 0JH83VZ Insertion of Infusion Pump into Abdomen Subcutaneous Tissue and Fascia, Percutaneous Approach (ICD-10-PCS; 2017-10-19)
PROC: 0JHT3VZ Insertion of Infusion Pump into Trunk Subcutaneous Tissue and Fascia, Percutaneous Approach (ICD-10-PCS; 2017-10-19)
PROC: 8E0W4CZ Robotic Assisted Procedure of Trunk Region, Percutaneous Endoscopic Approach (ICD-10-PCS; 2017-10-19)
PROC: 0DTF4ZZ Resection of Right Large Intestine, Percutaneous Endoscopic Approach (ICD-10-PCS; principal; 2017-10-19 07:30)
DX: C18.0 Malignant neoplasm of cecum (principal); K66.0 Peritoneal adhesions (postprocedural) (postinfection); K63.5 Polyp of colon; N39.0 Urinary tract infection, site not specified; G89.18 Other acute postprocedural pain; E11.22 Type 2 diabetes mellitus with diabetic chronic kidney disease; I12.9 Hypertensive chronic kidney disease with stage 1 through stage 4 chronic kidney disease, or unspecified chronic kidney disease; N18.9 Chronic kidney disease, unspecified; E87.6 Hypokalemia; B96.5 Pseudomonas (aeruginosa) (mallei) (pseudomallei) as the cause of diseases classified elsewhere; K74.60 Unspecified cirrhosis of liver; M06.9 Rheumatoid arthritis, unspecified; H40.9 Unspecified glaucoma; E66.01 Morbid (severe) obesity due to excess calories; R07.89 Other chest pain; Z87.442 Personal history of urinary calculi; Z87.891 Personal history of nicotine dependence; Z90.49 Acquired absence of other specified parts of digestive tract; Z79.4 Long term (current) use of insulin

== ENCOUNTER 2017-11-18 08:18 | Day surgery (SDC) | payer MEDICARE ==
[2017-11-18 09:34] VITALS: O2SAT 100
[2017-11-18] MEDS ORDERED: Midazolam 2 MG/2 ML VIAL ONE ×2 (09:49→09:50)
[2017-11-18] MEDS ORDERED: Propofol 10 mg/ml Inj (20 ML) ONE ×2 (09:49→11:48)
[2017-11-18] MEDS ORDERED: Lidocaine/Epinephrine 1% 1:100000 10 ML IJ ONE (10:07)
[2017-11-18] MEDS ORDERED: Bupivacaine HCl 0.25% PF (30 ml) Inj ONE (10:07)
[2017-11-18] MEDS ORDERED: Sodium Chloride 0.9% 20 ML IV ONE (10:09)
[2017-11-18] MEDS ORDERED: ceFAZolin IV 1 gm in Dextrose 2 GM/100 ML BAG IVPB ONE (10:09)
[2017-11-18] MEDS ORDERED: HEPARIN-NS 5,000 UNITS/500 ML 5,000 UNIT/500 ML BAG IV ONE (10:10)
[2017-11-18] MEDS ORDERED: HYDROmorphone 0.5 mg/0.5 ml ISec IVP PRN (12:29)
[2017-11-18] MEDS ORDERED: Oxycodone/Acetaminophen 5/325 mg Tab PO PRN (12:43)
--- NOTE | 2017-11-18 12:43 | PCM.SURG1 ---
Surgeon's Initial Post Op Note - Surgeon's Notes Surgeon: Dr. Umaña Continuity Reader: Dr. Mott PGY2 Type of Anesthesia: General LMA Pre-Operative Diagnosis: Colon Ca Operative Findings: See operative Dictation Post-Operative Diagnosis: Colon Ca Operation Performed: Portacath Insertion right internal jugular Specimen/Specimens Removed: None Estimated Blood Loss: EBL {In ML}: 5 Blood Products Given: N/A Drains Used: No Drains Post-Op Condition: Good Date of Surgery/Procedure: 11/18/17 Time of Surgery/Procedure: 12:43
--- NOTE | 2017-11-18 13:30 | RAD ---
HISTORY: R/O PTX S/P CATH. INSERTION COMPARISON: 10/22/2017 FINDINGS: LUNGS: No infiltrate PLEURA: Right central venous infusion port. CARDIOVASCULAR: Normal. OSSEOUS STRUCTURES: No significant abnormalities. VISUALIZED UPPER ABDOMEN: Normal. OTHER FINDINGS: None. IMPRESSION: Status post right central venous infusion port insertion. No pneumothorax. No acute infiltrate.
[2017-11-18 16:04] VITALS: RESP 16
[2017-11-18 16:32] VITALS: BP 1335/50; PULSE 95; TEMP 97.7
--- NOTE | 2017-11-18 21:27 | OP ---
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 PROCEDURE DONE: 1. Right IJ Port-A-Cath incision. 2. Ultrasound-guided venous access. 3. Intraoperative fluoroscopy. SURGEON: Zeb Umaña MD BREAKFAST AND ROOM ATTENDANT: Robby Mott DO, PGY-2 resident. TYPE OF ANESTHESIA: General endotracheal tube anesthesia. ESTIMATED BLOOD LOSS: Around 10 mL. DRAINS: None. PATHOLOGY: None. COMPLICATIONS: None. INTRAOPERATIVE FINDINGS: The patient had a patent right IJ. DESCRIPTION OF PROCEDURE: On intraoperative steps, this is a 72-year-old male who was diagnosed with colon cancer with lymph node metastasis and patient was consented for the Port-A-Cath insertion and brought to the OR, placed supine on the operating table. After induction of the anesthesia, both neck and upper chest was prepped and draped in the usual sterile fashion. Under ultrasound guidance, the right IJ venous access was done. Guidewire was placed, and intraoperative fluoroscopy was done for the proper placement of the guidewire. After that, the infraclavicular incision was made. Pouch was created. The catheter was tunneled from the pouch up to the right IJ incision site. The catheter site was dilated and catheter was placed into the dilator sheath and the catheter was connected to the port and port was accessed intraoperatively and was functioning without any blockage. Now, the port was sutured to the floor of the pouch and wound was closed in two layers, subcu with 2-0 Vicryl, skin with 4-0 Monocryl, and again, the port was accessed and a straight heparin was injected. The right IJ incision site was also closed with the 4-0 Monocryl and dry sterile dressing was applied. The patient was reversed from anesthesia and sent to the postanesthesia care unit in a stable condition. There were no apparent complications. Count of instrument and gauze was correct. Zeb Umaña MD [facility]ITAL[facility]
--- NOTE | 2017-11-21 10:46 | RAD ---
PROCEDURE: Intraoperative Fluoroscopy. HISTORY: COLON CANCER FINDINGS: Fluoroscopic assistance was provided for right sided Port-A-Cath placement. Please refer to the operative report from [facility].
== END 2017-11-18 14:45 | disposition home or self-care (01) ==
LOC: C.SDS 08:18
PROVIDERS: ATTEND Surgery Surgical Critical Care
DX: C18.9 Malignant neoplasm of colon, unspecified (principal); C77.2 Secondary and unspecified malignant neoplasm of intra-abdominal lymph nodes
CPT/HCPCS: 36561; 71045; J0690; J1170; J1644; J2250; J2704; J3010

== ENCOUNTER 2018-05-12 17:26 | Emergency (ER) | payer MEDICARE ==
[2018-05-12 17:26] VITALS: BMI 32.1
[2018-05-12 17:43] VITALS: O2SAT 99
--- NOTE | 2018-05-12 17:58 | C.PDOC ---
History Of Present Illness 73 year old male presents to the ED for an evaluation of left knee pain and swelling onset for 2 days. Patient reports the pain has occurred multiple times before. He has a history of colon cancer and receives infusion every other week. Patient states his knee becomes swollen and the medication he receives during the infusion relieves the pain and "makes his knee feel better". He is unsure of the type of medication used. Otherwise, patient denies fever, leg injury, trauma or any other complaints. Time Seen by Provider: 05/12/18 17:39 Chief Complaint (Nursing): Lower Extremity Problem/Injury History Per: Patient History/Exam Limitations: no limitations Onset/Duration Of Symptoms: Days Current Symptoms Are (Timing): Still Present Past Medical History Reviewed: Historical Data, Nursing Documentation, Vital Signs Vital Signs: Last Vital Signs Temp 98.3 F 05/12/18 17:39 Pulse 80 05/12/18 17:39 Resp 17 05/12/18 17:39 BP 152/107 H 05/12/18 17:39 Pulse Ox 99 05/12/18 17:39 - Medical History PMH: Anemia, Arthritis, Cardia Arrhythmia (H/O PALPITATIONS IN PAST.), Colonic Polyps, Diverticulitis, Gall Bladder Disease, HTN, Kidney Stones, Chronic Kidney Disease, Rheumatoid Arthritis Surgical History: Cholecystectomy, Endoscopy - [facility] Procedures (10/19/17) (10/19/17) DRAINAGE OF PERITONEAL CAVITY, PERCUTANEOUS APPROACH, DIAGN (07/10/17) INSERT INFUSION PUMP IN TRUNK SUBCU/FASCIA, PERC (10/19/17) INSERT OF INFUSION PUMP INTO ABD SUBCU/FASCIA, PERC APPROACH (10/19/17) RELEASE CECUM, PERCUTANEOUS ENDOSCOPIC APPROACH (10/19/17) RELEASE ILEUM, PERCUTANEOUS ENDOSCOPIC APPROACH (10/19/17) RESECTION OF RIGHT LARGE INTESTINE, PERC ENDO APPROACH (10/19/17) ROBOTIC ASSISTED PROCEDURE OF TRUNK, PERC ENDO APPROACH (10/19/17) ULTRASONOGRAPHY OF ABDOMEN (07/10/17) Family History: States: Unknown Family Hx - Social History Hx Alcohol Use: Yes Hx Substance Use: No - Immunization History Hx Tetanus Toxoid Vaccination: No Hx Influenza Vaccination: Yes Hx Pneumococcal Vaccination: Yes Review Of Systems Constitutional: Negative for: Fever, Chills Respiratory: Negative for: Cough, Shortness of Breath Musculoskeletal: Positive for: Other (left knee pain) Skin: Negative for: Other (leg injury or trauma) Physical Exam - Physical Exam Appears: Non-toxic, No Acute Distress Skin: Normal Color, Warm, Dry Head: Atraumatic, Normacephalic Eye(s): bilateral: Normal Inspection, PERRL, EOMI Chest: Symmetrical Cardiovascular: Rhythm Regular Respiratory: Normal Breath Sounds Gastrointestinal/Abdominal: Normal Exam, Soft, No Tenderness Back: Normal Inspection Extremity: No Normal ROM (pain upon flexion and extension), Tenderness (left knee), Swelling (left knee), Other (no erythema or warmth on the knee) Neurological/Psych: Oriented x3, Normal Speech Gait: Steady ED Course And Treatment O2 Sat by Pulse Oximetry: 99 (RA) Pulse Ox Interpretation: Normal Medical Decision Making Medical Decision Making: Time: 1751 Impression: left knee pain Initial Plan: --Toradol 60mg Patient advised to take NSAIDs at home for knee pain. Pain and swelling are chronic, and patient has no clinical signs or symptoms of septic joint. Disposition - Disposition Disposition: HOME/ ROUTINE Disposition Time: 18:30 Condition: STABLE Additional Instructions: TC MCLAUGHLIN, thank you for letting us take care of you today. Your provider was Ingris Wang MD and you were treated for KNEE SWELLING. The emergency medical care you received today was directed at your acute symptoms. If you were prescribed any medication, please fill it and take as directed. It may take several days for your symptoms to resolve. Return to the Emergency Department if your symptoms worsen, do not improve, or if you have any other problems. Please contact your doctor or call one of the physicians/clinics you have been referred to that are listed on the Patient Visit Information form that is included in your discharge packet. Bring any paperwork you were given at discharge with you along with any medications you are taking to your follow up visit. Our treatment cannot replace ongoing medical care by a primary care provider outside of the emergency department. Thank you for allowing the [facility] team to be part of your care today. If you had an X-Ray or CT scan: A Radiologist will review the ED reading if any change in treatment is needed we will contact you. If you had a blood, urine, or wound culture: It will take several days for the results, if any change in treatment is needed we will contact you. If you had an STI test: It will take 48 hours for the results. Please call after 1 week if you have not heard back. Instructions: Knee Pain (DC) Forms: [employer] ([place]i) - Clinical Impression Clinical Impression: Knee pain, left - Scribe Statement The provider has reviewed the documentation as recorded by the Scribe (Robyn Nesbitt) All medical record entries made by the Scribe were at my direction and personally dictated by me. I have reviewed the chart and agree that the record accurately reflects my personal performance of the history, physical exam, medical decision making, and the department course for this patient. I have also personally directed, reviewed, and agree with the discharge instructions and disposition.
[2018-05-12 20:01] VITALS: BP 147/95; PULSE 75; RESP 16; TEMP 98.2
== END 2018-05-12 20:00 | disposition home or self-care (01) ==
LOC: C.ER 17:26
DX: M25.562 Pain in left knee (principal)
CPT/HCPCS: 96372; 99284; J1885

== ENCOUNTER 2018-07-07 10:49 | Outpatient (CLI) | payer MEDICARE | END 2018-07-07 10:50 | disposition home or self-care (01) | LOC: C.CTH 10:49 | DX: C18.9 Malignant neoplasm of colon, unspecified (principal) ==